=== PATIENT | female | born 1965 | race Caucasian/White ===

== ENCOUNTER 2023-08-02 10:18 | Outpatient (OUT) | payer OTHER, SELFPAY ==
--- NOTE | 2023-08-02 10:57 | MM_ITS ---
Patient Name: JANIE GARCIA MR#: [id number] : 1965 Exam Date: 08/02/2023 Ordering Doctor: DR SANA WAYNE D.O. RADIOLOGY REPORT PROCEDURE: MM TOMOSYNTHESIS SCREENING BI COMPARISON: MG MAMM SCREEN 3D LUIS CAD, 03/17/2021. MG MAMM SCREEN LUIS W CAD, 07/24/2019. MG MAMM SCREEN LUIS W CAD, 01/10/2018. MG MAMM LUIS SCRN W CAD DIG, 07/30/2013. INDICATIONS: screening Calculator Name NCI Breast Cancer Risk Assessment Tool 5 Year Breast Cancer Risk 2.70% Lifetime Breast Cancer Risk 14.90% Personal Breast Cancer No Personal Ovarian Cancer No Treatments Excision. Lobectomy, chemotherapy. Family Cancers Sister with breast cancer at age 66; Brother with colon cancer at age 50; Uncle-paternal with bone cancer at age 70; Aunt-paternal with breast cancer at age 50. LOCATION: [facility] BREAST COMPOSITION: Heterogeneously dense,which may obscure small masses. FINDINGS: DIAGNOSTIC CATEGORY 1--NEGATIVE. RIGHT BREAST: No significant suspicious finding. No significant change has occurred. LEFT BREAST: No significant suspicious finding. No significant change has occurred. RECOMMENDATIONS: ROUTINE MAMMOGRAM AND CLINICAL EVALUATION IN 12 MONTHS. PLEASE NOTE: A NORMAL MAMMOGRAM DOES NOT EXCLUDE THE POSSIBILITY OF BREAST CANCER. A CLINICALLY SUSPICIOUS PALPABLE LUMP SHOULD BE BIOPSIED. Dictated by: Oscar Fall M.D. on 08/03/2023 at 08:35 Approved by: Oscar Fall M.D. on 08/03/2023 at 08:40
== END 2023-08-02 10:19 | disposition home or self-care (01) ==
LOC: MAMMO 10:20
PROVIDERS: PCP Family Medicine; Visit Provider Family Medicine
DX: Z12.31 Encounter for screening mammogram for malignant neoplasm of breast (principal); Z80.3 Family history of malignant neoplasm of breast; Z80.0 Family history of malignant neoplasm of digestive organs; Z80.8 Family history of malignant neoplasm of other organs or systems
CPT/HCPCS: 77063; 77067

== ENCOUNTER 2024-01-18 07:47 | Outpatient (RCR) | payer OTHER, SELFPAY | END 2024-02-01 15:29 | disposition home or self-care (01) | LOC: PT 07:47 | PROVIDERS: PCP Family Medicine; Visit Provider Family Medicine | DX: M54.30 Sciatica, unspecified side (principal); G95.9 Disease of spinal cord, unspecified; M25.552 Pain in left hip | CPT/HCPCS: 97014; 97110; 97140; 97161 ==

== ENCOUNTER 2024-03-24 16:03 | Emergency (ER) | payer OTHER, SELFPAY ==
[2024-03-24] VITALS (33 sets, daily range): BP systolic 111–161; BP diastolic 50–87; PULSE 89–109; TEMP 36.7–37.1; O2SAT 91–97; BMI 27.4
--- OUTSIDE RECORDS SUMMARY | 2024-03-24 16:09 | XMS_ITS | CCD ---
Author Organization [facility] Care Team Providers Care Cardiac Monitor Name Role Phone Ishaan Fernandez Unavailable Oxford Sr., Mike Morales Primary Care Provider Jensen Martinez Unavailable Campbell Quintero Unavailable DO Mike Wayne Primary Care Provider MD Campbell Quintero Attending Provider [phone] TONE, DR HOOD Primary Care Unavailable DIAB ., DAHIANA Admitting Unavailable DIAB ., DAHIANA Attending Unavailable SILVERMAN, ELLIOTT Consulting Unavailable DIAB ., DAHIANA Consulting Unavailable FULLERTON, DR HOOD Admitting Unavailable FULLERTON, DR HOOD Attending Unavailable FULLERTON, DR HOOD Primary Care Unavailable FULLERTON, DR HOOD Consulting Unavailable [facility], DR EUSEBIA Olmos Consulting Unavailable FULLERTON, DR HOOD Admitting Unavailable FULLERTON, DR HOOD Attending Unavailable FULLERTON, DR HOOD Primary Care Unavailable FULLERTON, DR HOOD Consulting Unavailable Oxford Sr., Mike Morales Primary Care Provider PROVIDER, UNKNOWN Attending Unavailable PROVIDER, UNKNOWN Admitting Unavailable MINGO MEDINA Referring Unava ilable DO Mike Wayne Primary Care Provider MD Campbell Quintero Attending Provider [phone] SAPNA REYNA Attending Unavailable SAPNA REYNA Referring Unavailable SAPNA REYNA Attending Unavailable SAPNA REYNA Attending Unavailable DO Mike Wayne Primary Care Provider [phone] MD Campbell Quintero Attending Provider Mike Wayne Primary Care Unavailable Campbell Quintero Admitting Unavailable Campbell Quintero Attending Unavailable House, Mike Primary Care Unavailable Leon, Campbell S Admitting Unavailable Leon, Campbell S Attending Unavailable Leon, Campbell S Admitting Unavailable Leon, Campbell S Attending Unavailable House, Mike Primary Care Unavailable HOUSE SR, MIKE P Primary Care Unavailable NAYELI GARRETT Referring Unavailable HOUSE SR, MIKE P Primary Care Unavailable NAYELI GARRETT Referring Unavailable NAYELI GARRETT Attending Unavailable HOUSE, MIKE P Primary Care Unavailable Dionisio Tong MD Attending Unavailable HOUSE, MIKE P Primary Care Unavailable Dionisio Tong MD Attending Unavailable HOUSE, DO MIKE P Attending Unavailable HOUSE, MIKE P Primary Care Unavailable HOUSE, DO MIKE P Attending Unavailable HOUSE, MIKE P Primary Care Unavailable HOUSE, MIKE P Primary Care Unavailable HOUSE, DO MIKE P Attending Unavailable HOUSE, DO MIKE P Attending Unavailable HOUSE, MIKE P Primary Care Unavailable HOUSE, MIKE P Primary Care Unavailable HOUSE, DO MIKE P Attending Unavailable HOUSE, MIKE P Primary Care Unavailable Dionisio Tong MD Attending Unavailable HOUSE, MIKE P Primary Care Unavailable HOUSE, DO MIKE P Admitting Unavailable HOUSE, DO MIKE P Attending Unavailable HOUSE, MIKE P Primary Care Unavailable Medications Current Medications Medication Drug Class(es) Dates Sig (Normalized) Sig (Original) Ascorbic Acid (7 sources) Vitamin C Vitamin C Active {1 (ascorbic acid 7540 MG / polyethylene glycol 3350 59815 MG / potassium chloride 1200 MG / sodium ascorbate 01536 MG / sodium chloride 3200 MG Powder for Oral Solution) / 1 (polyethylene glycol 3350 953962 MG / potassium chloride 1000 MG / sodium chloride 2000 MG / sodium sulfate 9000 MG Powder for Oral Solution) } Pack [Plenvu] (8 sources) Osmotic Laxative, Vitamin C Start: 01-12-2022 Start: 01-12-2022 Plenvu 140 GM dose 1 pouch at 4pm, dose 2 pouch A & B at 11pm Orally twice a day for 1 days BIN:[id number] PCN: [id number] GROUP:[id number] ID:[id number] Jan, Active citalopram 20 mg oral tablet (17 sources) Serotonin Reuptake Inhibitor Start: 01-17-2019 take 20 mg by mouth once daily Citalopram Active 20 MG PO Daily October 26, 2022 12:00am Comment on above: Take 20 mg by mouth once daily. etodolac 400 mg oral tablet (6 sources) Nonsteroidal Anti-inflammatory Drug Start: 10-13-2023 take 400 mg by mouth twice daily Etodolac Active 400 MG PO Twice daily October 13, 2023 1:00am fexofenadine hydrochloride 180 mg oral tablet (17 sources) Histamine-1 Receptor Antagonist Start: 01-20-2022 take 180 mg by mouth once daily Fexofenadine Active 180 MG PO Daily January 20, 2022 12:00am Comment on above: Take 180 mg by mouth once daily. fluticasone / salmeterol (1 source) Corticosteroid, beta2-Adrenergic Agonist Start: 03-21-2023 End: 06-19-2023 take 1 puff(s) by inhalation twice daily fluticasone-salmet chepe (ADVAIR DISKUS) 100-50 mcg/dose inhaler Inhale 1 Puff as instructed twice daily. 60 Each 3 03/21/2023 06/19/2023 Active Comment on above: Inhale 1 Puff as ins tructed twice daily. lisinopril 20 mg oral tablet (17 sources) Angiotensin Converting Enzyme Inhibitor Start: 01-20-2022 take 20 mg by mouth once daily Lisinopril Active 20 MG PO Daily January 20, 2022 12:00am Comment on above: Take 20 mg by mouth once daily. magnesium aspartate 250 mg / potassium aspartate 250 mg oral capsule (7 sources) Start: 01-20-2022 take 1 capsule by mouth once daily Magnesium, Potassium Aspartate Active 1 CAP PO Daily January 20, 2022 12:00am Multivitamin preparation (7 sources) Start: 01-20-2022 take 1 tablet by mouth once daily Multivitamin Active 1 TAB PO Daily January 20, 2022 12:00am Multivitamins (8 sources) Multivitamins Orally *please review for potential _update for e-prescription and drug interaction check* Active pantoprazole 40 mg delayed release oral tablet (15 sources) Proton Pump Inhibitor Start: 10-26-2022 take 40 mg by mouth once daily Pantoprazole Active 40 MG PO Daily October 26, 2022 12:00am Potassium (8 sources) Potassium Active Vitamin D3 (8 sources) Vitamin D3 Activ e Completed/Discontinued Medications Medication Drug Class(es) Dates Sig (Normalized) Sig (Original) azithromycin 250 mg oral tablet (6 sources) Macrolide Antimicrobial Start: 03-17-2021 take 2 tablets by mouth once daily, then take 1 tablet by mouth once daily azithromycin (ZITHROMAX Z-KEILA) 250 mg tablet Take two (2) tablets by mouth the first day and then one (1) tablet daily for 4 days. 6 tablet 0 03/17/2021 Active Azithromycin 250 MG as directed Orally Active Comment on above: Take two (2) tablets by mouth the first day and then one (1) tablet daily for 4 days. Budesonide / formoterol (1 source) Corticosteroid, beta2-Adrenergic Agonist take 2 puff(s) by inhalation twice daily budesonide-formotero l (SYMBICORT) 160-4.5 mcg/actuation inhaler Inhale 2 Puffs as instructed twice daily. 0 Active Comment on above: Inhale 2 Puffs as in structed twice daily. calcium phosphate dibas/vit D3 (VITAMIN D, WITH CALCIUM, ORAL) (2 sources) calcium phosphat e dibas/vit D3 (VITAMIN D, WITH CALCIUM, ORAL) Take by mouth. 0 Active Comment on above: Take by mouth. MULTI-VITAMIN ORAL (2 sources) take 1 tablet by mouth once daily MULTI-VITAMIN ORAL Take 1 tablet by mouth once daily. 0 Active Comment on above: Take 1 tablet by denis once daily. ondansetron 4 mg oral tablet (15 sources) Serotonin-3 Receptor Antagonist Start: 01-21-20 End: 10-27-19 take 4 mg by mouth every four hours Ondansetron Hcl Discontinued 4 MG PO Q4H January 20, 2022 12:00am October 26, 2022 8:04am take 1 tablet by mouth every twe nty-four hours POTASSIUM/MAGNESIUM (MAGNESIUM-POTASSIUM ORAL) (2 sources) POTASSIUM/MAGNES IUM (MAGNESIUM-POTASSIUM ORAL) Take by mouth. 0 Active Comment on above: Take by mouth. pregabalin (13 sources) Start: End: take 1 capsule by mouth twice daily Pregabalin Discontinued 1 CAP PO Twice daily October 12, 2023 1:00am October 25, 2023 8:19am FreeTextSi capsule Orally Twice a day; Note: Source Status: Taking; Provider: Juan Styles ( ) take 1 capsule by mouth every tw elve hours Lyrica 50 MG 1 capsule Orally Twice a day Active vitamin b12 0.1 mg oral tablet (9 sources) Vitamin B12 take 1 tablet by mouth once daily cyanocobalamin (VITAMIN B-12) 100 mcg tab Take 100 mcg by mouth once daily. 0 Active Vitamin B 12 Act dereje Comment on above: Take 100 mcg by mout h once daily. Problems Active Problems Problem Classification Problem Date Documented Da te Episodic/Chronic Abdominal pain (8 sources) Epigastric pain; Translations: [Epigastric pain] Episodic Cancer of bronchus; lung (4 sources) Non-small cell lung cancer; Translations: [Malignant neoplasm of unspecified part of right bronchus or lung] Onset: 2 Chronic Esophageal disorders (20 sources) Gastroesophageal reflux disease; Translations: [Gastro-esophageal reflux disease without esophagitis] Onset: 2 Resolved: 2 Chronic Essential hypertension (5 sources) Essential (primary) hypertension; Translations: [ESSENTIAL PRIMARY HYPERTENSION] Onset: 3 Chronic Joint disorders and dislocations; trauma-related (8 sources) Internal derangement of right knee; Translations: [Unspecified internal derangement of right knee] Chronic Melanomas of skin (3 sources) Malignant melanoma; Translations: [Malignant melanoma of skin, unspecified] Onset: 2 08-02-2021 Chronic Nonspecific chest pain (1 source) Chest pain, unspecified; Translations: [CHEST PAIN UNSPECIFIED] Onset: 3 Episodic Other gastrointestinal disorders (15 sources) Irritable bowel syndrome; Translations: [Mixed irritable bowel syndrome] 01-20-2022 Chronic Other gastrointestinal disorders (1 source) Mixed irritable bowel syndrome Onset: 2 Resolved: 2 Chronic Other nervous system disorders (14 sources) Chronic pain; Translations: [Other chronic pain] 10-13-2023 Chronic Other nervous system disorders (14 sources) Other chronic pain; Translations: [Other chronic pain] Onset: 4 Chronic Peripheral and visceral atherosclerosis (16 sources) Ischemic colitis; Translations: [Vascular disorder of intestine, unspecified] Onset: 2 Resolved: 2 Chronic Residual codes; unclassified (8 sources) History of surgical procedure on cervical spine; Translations: [Other specified postprocedural states] Episodic Spondylosis; intervertebral disc disorders; other back problems (20 sources) Solitary sacroiliitis; Translations: [Sacroiliitis, not elsewhere classified] Onset: 2 07-13-2012 Chronic Spondylosis; intervertebral disc disorders; other back problems (20 sources) Neck pain; Translations: [Cervicalgia] Onset: 3 Episodic Thyroid disorders (3 sources) Multinodular goiter; Translations: [Nontoxic multinodular goiter] Onset: 8 02-01-2018 Chronic Unclassified (1 source) LOW BACK PAIN, UNSPECIFIED; Translations: [LOW BACK PAIN, UNSPECIFIED] Onset: 3 Past or Other Problems Problem Classification Problem Date Documented Da te Episodic/Chronic Other aftercare (1 source) Other fdc (current) drug therapy; Translations: [OTH DETENTION CURRENT DRUG THERAPY] Onset: 09-07-2022 Episodic Residual codes; unclassified (2 sources) Pain; Translations: [Pain, unspecified] Onset: 07-13-2012 07-13-2012 Episodic Screening and history of mental health and substance abuse codes (1 source) Personal history of nicotine dependence; Translations: [PERSONAL HISTORY OF NICOTINE DEPEND] Onset: 09-07-2022 Episodic Results Test Name Value Interpretation Reference Range Facility CT CHEST WO IVCONon 03-19-[address] CHEST WO IVCON * * *Final Report* * * DATE OF EXAM: Mar 19 2024 9:37AM [facility] 0541 - CT CHEST WO IVCON / PROCEDURE REASON: Malignant neoplasm of unspecified part of unspecified bronchus or lung (HCC) * * * * Physician Interpretation * * * * RESULT: EXAMINATION: CHEST CT WITHOUT CONTRAST CLINICAL HISTORY: Malignant neoplasm of unspecified part of unspecified bronchus or lung (HCC) NSCLC Technique: Spiral CT acquisition of the chest from the thoracic inlet to the upper abdomen without contrast. MQ: CTCWOR_4 CT Dose-Length Product: 201 mGy*cm CT Dose Reduction Employed: Automated exposure control (AEC) Comparison: 03/14/2023 RESULT: Lines, tubes, and devices: None. Lung parenchyma and airways: Trachea and central airways are patent. Right lower lobectomy. Volume loss and architectural distortion and bronchiectasis in the right lung, unchanged. Pleural-parenchymal scarring. Unchanged 1.2 cm nodular opacity left apex (image 34) with comparison to thousand 19. No new suspicious appearing pulmonary nodules. Pleural space: Chronic right pleural thickening with associated calcifications. Lower neck, lymph nodes, and mediastinum: No axillary, supraclavicular, mediastinal or hilar lymphadenopathy by CT size criteria. Heart, pericardium, and thoracic vessels: The heart is normal in size. No pericardial effusion. The thoracic aorta and main pulmonary artery are normal in caliber. Atherosclerotic calcifications of the thoracic aorta and coronary arteries. Bones/Soft Tissues: No aggressive osseous lesions. Upper abdomen: Visualized upper abdomen is grossly unremarkable. Natural Resource Technician (topogram) images: Unremarkable. IMPRESSION: Unchanged appearance of the chest since 03/14/2023. Transcribe Date/Time: Mar 19 2024 2:35P Dictated by: FRANK DENG MD This examination was interpreted and the report reviewed and electronically signed by: FRANK DENG MD on Mar 19 2024 2:44PM EST Thank you for allowing us to participate in the care of your patient. Should there be any questions regarding this interpretation, please call [phone]. If you are unable to reach us at the number above, please feel free to contact [facility] at [phone]. [id number] Normal [facility] Outside [facility] 03-05-2024 Outside Records [id number]#1.0 [facility] 02-26-2024 Outside Records [id number]#1.0 [facility] MR [facility] spine wo [facility] MR lumbar spine wo [facility] [place] [address] MRI Report Signed Patient: Aminta Garcia MR#: [id number] 17 : 1965 Acct:[id number] Age/Sex: 58 / F ADM Date: 02/06/24 Loc: [facility] Room: Type: [facility] Attending Dr: Campbell Quintero MD Copies to: Campbell Quintero MD Ordering Provider: Campbell Quintero MD Date of Service: 02/06/24 MR/MR lumbar spine wo con: M51.36 - Other intervertebral disc degeneration, lumbar r... MRI Lumbar Spine withoutcontrast TECHNIQUE: Multiplanar T1 and T2-weighted imaging of lumbar spine obtained without contrast. HISTORY: Lumbar spine pain with radiation down the legs. Numbness and tingling. COMPARISON: 09/20/2022 The last fully segmented vertebral pair is operationally defined as L5/S1. POST SURGERY CHANGES: None BONE MARROW INFILTRATION: None BONE MARROW EDEMA: None BONY ALIGNMENT: Adequate bony alignment identified. SPINAL CANAL: Similar mild central canal narrowing LUMBAR FRACTURE: None BONY LESIONS: None KIDNEYS: No hydronephrosis is identified. AORTA: No aortic aneurysm is seen. CONUS MEDULLARIS : The distal spinal cord is in adequate position without abnormality. Additional findings CONJOINED NERVE ROOT: None Lower thoracic level: Unremarkable L1-2 :Moderate spondylosis. Small left parasagittal disc protrusion. Patent central canal. Mild posterior element hypertrophy. Mild bilateral neural foraminal narrowing L2-3: Moderate spondylosis. Diffuse disc bulge. Mild central canal stenosis. Posterior element hypertrophy. Facet diastases. Moderate moderate bilateral neural foraminal narrowing L3-4: Moderate spondylosis. Diffuse disc bulge. Mild central canal stenosis. Posterior element hypertrophy. Moderate bilateral neural foraminal narrowing L4-5: Moderate spondylosis. Mild anterolisthesis. Diffuse disc bulge. Mild central canal stenosis. Posterior element hypertrophy. Moderate bilateral neural foraminal narrowing L5-S1: Mild spondylosis. Moderate diffuse disc bulge and midline disc protrusion. Concavity of anterior thecal sac. Patent central canal. Posterior element hypertrophy. Mild left and marked right neural foraminal narrowing MR/MR lumbar spine wo con IMPRESSION: Similar extensive multilevel degenerative changes. Similar levels of central canal stenosis and neural foraminal narrowing. No new worrisome findings. Pre-MRI plain film assessment: None Impression dictated by: Mariusz Cloud M.D.02/06/2024 4:21 PM Dictation Location: [place] [address] Transcribed By: [facility] 02/06/24 1621 Dictated By: Mariusz Cloud DO 02/06/24 1616 Signed By: 02/06/24 1621 [facility] Provider Orderson 01-22-2024 Provider Orders [id number]#1.0 [facility] 01-11-2024 Outside Records [id number]#1. [facility] XR lumbar spine AP/LAT/FLX/E XTon 12-27-2023 XR lumbar spine AP/LAT/FLX/EXT [facility] [place] [address] [place] [address] XRay Report Signed Patient: Aminta Garcia MR#: [id number] 17 : 1965 Acct:[id number] Age/Sex: 58 / F ADM Date: 12/27/23 Loc: XD Room: Type: [facility] Attending Dr: Campbell Quintero MD Copies to: Campbell Quintero MD Ordering Provider: Campbell Quintero MD Date of Service: 12/27/23 XR/XR lumbar spine AP/LAT/FLX/EXT: M46.1 - Sacroiliitis, not elsewhere classified LUMBAR SPINE WITH FLEXION AND EXTENSION VIEWS - 4 views COMPARISON: CT 09/05/2022 CLINICAL DATA: Low back pain radiating to the lower extremities with his weakness, numbness and tingling, greater on the left. AP as well as lateral views in neutral, flexion and extension were obtained. There is osteopenia. There is reverse S-shaped thoracolumbar scoliotic curvature. No acute compression fractures are identified. There is no significant displacement or instability. There is mild disc space narrowing at L4-5. There is endplate spurring. There is lower lumbar facet hypertrophy. The SI joints are intact and show mild sclerosis. There is some atherosclerotic disease at the aorta. XR/XR lumbar spine AP/LAT/FLX/EXT IMPRESSION: OSTEOPENIA, SCOLIOSIS AND DEGENERATIVE CHANGES. Impression dictated by: Maria D Thrasher M.D.12/27/2023 6:38 PM Dictation Location: [place] [address] Transcribed By: [facility] 12/27/231837 Dictated By: Maria D Thrasher MD 05/22/24 1835 Signed By: 12/27/23 1838 Normal [facility] Miscellaneouson 12-11-2023 Miscellaneous [id number]#1 .[facility]-13-2023 Outside Records [id number]#1.0 0[facility] Outside [facility] 11-02-2023 Outside Records [id number]#1.0 0[facility] 10-25-2023 Outside Records [id number]#1. [facility] 10-17-2023 Miscellaneous [id number]#1 .[facility] 10-16-2023 Outside Records [id number]#1.00 [facility] Miscellaneouson 10-02-2023 Miscellaneous [id number]#1.0 0[facility] Miscellaneouson 08-17-2023 Miscellaneous [id number]#1 .00[facility] Miscellaneouson 07-27-2023 Miscellaneous [id number]#1 .[facility] 07-19-2023 Outside Records [id number]#1.00 [facility] Office/Clinic Noteon 023 Miscellaneous [id number]#1. 00[facility] Office/Clinic Note [id number]#1. 00[facility] Miscellaneouson 06-22-2023 Miscellaneous [id number]#1.00 [facility] 06-05-2023 Miscellaneous [id number]#1.0 0[facility] 05-29-2023 Outside Records [id number]#1 .00[facility] CNOVSPon 03-21-2023 CNOVSP Visit (SP) Office ([facility]) RADHAAMINTA CALLEJAS ([id number]) 1965 F Date Time Provider Department 03/21/23 1:15 PM NAYELI GARRETT During your visit today, we recorded the following information about you: Temperature Pulse Respiration Blood pressure 96.9 degrees 73/minute 18/minute 140/70 Weight Height 82.5 kg 1.689 m Nayeli Garrett MD 03/22/2023 7:47 AM Signed PATIENT NAME: Aminta Garcia DATE: 03/21/2023 PRIMARY CARE PHYSICIAN: Dr. Wayne OTHER PHYSICIAN: Dr. Duarte ([facility]) Portions of this encounter note have been copied from my note from 03/15/2022 and has been updated where appropriate, and reflect my current medical decision making from today. CC: This is a 57 year old female with a history of lung cancer and melanoma, seen for scheduled follow-up. INTERIM HISTORY: Since the patient's last visit here she developed increasing cough and shortness of breath. She was given an inhaler (Symbicort) per PCP and her pulmonary symptoms improved. However, the inhaler cost more than $400, and she states today that she cannot afford it. Otherwise she has had no significant medical changes. Her pulmonary symptoms overall are quite mild. She has had no unusual pain or other systemic symptoms. She continues to follow-up with her bacteriology technician on a yearly basis, and has had no significant skin changes. MEDICATIONS: calcium phosphate dibas/vit D3 (VITAMIN D, WITH CALCIUM, ORAL) Take by mouth. azithromycin (ZITHROMAX Z-KEILA) 250 mg tablet Take two (2) tablets by mouth the first day and then one (1) tablet daily for 4 days. citalopram (CELEXA) 20 mg tablet Take 20 mg by mouth once daily. cyanocobalamin (VITAMIN B-12) 100 mcg tab Take 100 mcg by mouth once daily. fexofenadine (NERIS) 180 mg tablet Take 180 mg by mouth once daily. lisinopril (ZESTRIL, PRINIVIL) 20 mg tablet Take 20 mg by mouth once daily. POTASSIUM/MAGNESIUM (MAGNESIUM-POTASSIUM ORAL) Take by mouth. MULTI-VITAMIN ORAL Take 1 tablet by mouth once daily. ALLERGIES: Patient has no known allergies. PAST MEDICAL HISTORY: PAST MEDICAL HISTORY Diagnosis Date Non-small cell lung cancer (HCC) PAST SURGICAL HISTORY: PAST SURGICAL HISTORY Procedure Laterality Date HYSTERECTOMY HX KNEE SURGERY HX Right REMOVAL OF LUNG,LOBECTOMY Right lower REVISE MEDIAN N/CARPAL TUNNEL SURG Left TONSILLECTOMY HX REVIEW OF SYSTEMS: GENERAL: No weight loss, malaise or fevers. Positive fatigue HEENT: Negative for frequent or significant headaches, No changes in hearing or vision, no nose bleeds or other nasal problems. No palpable thyromegaly. RESPIRATORY: Negative for cough, wheezing Positive increased shortness of breath with exertion CARDIOVASCULAR: Negative for chest pain, leg swelling or palpitations. GI: Negative for abdominal discomfort, blood in stools or black stools or change in bowel habits : No history of dysuria, frequency or incontinence MUSCULOSKELETAL: pain in right rib under breast SKIN: Negative for lesions, rash, and itching. HEMATOLOGY/LYMPHOLOGY: Negative for prolonged bleeding, bruising easily or swollen nodes. NEURO: No history of headaches, syncope, paralysis, seizures or tremors PHYSICAL EXAM: Vitals: BP 140/70 Pulse 73 Temp 36.1 ?C (96.9 ?F) (Temporal) Resp 18 Ht 168.9 cm (5' 6.5 ) Wt 82.5 kg (181 lb 12.8 oz) SpO2 99% BMI 28.91 kg/m? General appearance: well appearing, alert, in no acute distress, well-hydrated, well nourished Skin: skin color, texture, turgor normal, no suspicious rashes or lesions Head: normal Eyes: Anicteric sclera. Pupils are equally round and reactive to light. Extraocular movements are intact. Ears: negative findings: external ears normal to inspection and palpation Oropharynx: negative Neck: Supple, no adenopathy; thyroid symmetric, normal size Lymph Nodes: No Submandibular, cervical, supraclavicular, axillary, or inguinal lymphadenopathy present Lungs: clear to auscultation, no wheezing or rhonchi Heart: Negative. RRR without murmur, gallop, or rubs. No ectopy. Abdomen: Normal abdominal exam, Abdomen soft, non-tender. Bowel sounds normal. No masses, organomegaly Rectal: Not done Extremities: Extremities normal. No deformities, edema, or skin discoloration. Good capillary refill. Musculoskeletal: No joint swelling, deformity, or tenderness. Peripheral pulses: Normal RADIOLOGY/OTHER STUDIES: 03/14/2023 CT chest IMPRESSION: 1. Overall stable CT of the chest. Stable postsurgical changes in keeping with right lower lobectomy. 2. Stable right apical and right upper lobe consolidative opacity. 3. Stable nodular opacity in the left upper lobe. No new or enlarging nodules are visualized. 4. No evidence of intrathoracic adenopathy. 03/09/2022 CT chest IMPRESSION: 1. No significant change since 03/12/2021. 2. Stable posto (more content not included)... Normal [facility] CBC AUTO DIFFon 12-05-2022 BASO # 0.0 103/ul Normal 0.0-0.1 [facility] Comment on above: Performed By: #### C BC #### [facility] [address] [address] [address] Tony Vuong Basophils/100 WBC (Bld) 0.6 % Normal 0.2-2.0 [facility] Comment on above: Performed By: #### C BC #### [facility] [address] [place] [address] Dr. Tony Vuong EO # 0.2 103/ul Normal 0.0-0.7 [facility] Comment on above: Performed By: #### C BC #### [facility] [address] [place] [address] Dr. Tony Vuong Eosinophils/100 WBC (Bld) 3.6 % Normal 0.9-7.0 [facility] Comment on above: Performed By: #### C BC #### [facility] [address] [place] [address] Dr. Tony Vuong Erythrocyte distribution width (RBC) [Ratio] 12.8 % Normal 11.0-15.0 [facility] Comment on above: Performed By: #### C BC #### [facility] [address] [place] [address] Dr. Tony Vuong Hematocrit (Bld) [Volume fraction] 42.0 % Normal 36.0-48.0 [facility] Comment on above: Performed By: #### C BC #### [facility] [address] [place] [address] Dr. Tony Vuong Hemoglobin (Bld) [Mass/Vol] 14.0 g/dL Normal 12.0-16.0 [facility] Comment on above: Performed By: #### C BC #### [facility] [address] [place] [address] Dr. Tony Vuong IG # 0.01 10e3/ul Normal 0.00-0.03 [facility] Comment on above: Performed By: #### C BC #### [facility] [address] [place] [address] Dr. Tony Vuong IG % 0.2 % Normal 0.0-0.5 [facility] Comment on above: Performed By: #### C BC #### [facility] [address] [place] [address] Dr. Tony Vuong LYMPH # 2.1 103/ul Normal 1.2-3.8 [facility] Comment on above: Performed By: #### C BC #### [facility] [address] [place] [address] Dr. Tony uVong Lymphocytes/100 WBC (Bld) 32.8 % Normal 20.5-60.0 [facility] Comment on above: Performed By: #### C BC #### [facility] [address] [place] [address] Dr. Tony Vuong MANUAL DIFF REQ NO Normal [facility] Comment on above: Performed By: #### C BC #### [facility] [address] [place] [address] Dr. Tony Vuong MCH (RBC) [Entitic mass] 28.2 pg Normal 26.7-34.0 [facility] Comment on above: Performed By: #### C BC #### [facility] [address] [place] [address] Dr. Tony Vuong MCHC (RBC) [Mass/Vol] 33.3 g/dL Normal 29.9-35.2 [facility] Comment on above: Performed By: #### C BC #### [facility] [address] [place] [address] Dr. Tony Vuong MCV (RBC) [Entitic vol] 84.5 fL Normal 81.0-99.0 [facility] Comment on above: Performed By: #### C BC #### [facility] [address] [place] [address] Dr. Tony Vuong MONO # 0.5 103/ul Normal 0.3-0.8 [facility] Comment on above: Performed By: #### C BC #### [facility] [address] [place] [address] Dr. Tony Vuong Monocytes/100 WBC (Bld) 8.1 % Normal 1.7-12.0 [facility] Comment on above: Performed By: #### C BC #### [facility] [address] [place] [address] Dr. Tony Vuong NEUT # 3.5 103/ul Normal 1.4-6.5 [facility] Comment on above: Performed By: #### C BC #### [facility] [address] [place] [address] Dr. Tony Vuong Neutrophils/100 WBC (Bld) 54.7 % Normal 43.0-75.0 [facility] Comment on above: Performed By: #### C BC #### [facility] [address] [place] [address] Dr. Tony Vuong Platelet mean volume (Bld) [Entitic vol] 10.0 fL Normal 9.5-13.5 [facility] Comment on above: Performed By: #### C BC #### [facility] [address] [place] [address] Dr. Tony Vuong PLT 280 103/ul Normal 150-450 [facility] Comment on above: Performed By: #### C BC #### [facility] [address] [place] [address] Dr. Tony Vuong RBC 4.97 106/ul Normal 4.20-5.40 [facility] Comment on above: Performed By: #### C BC #### [facility] [address] [place] [address] Dr. Tony Vuong WBC 6.4 103/ul Normal 4.0-11.0 [facility] Comment on above: Performed By: #### C BC #### [facility] [address] [place] [address] Dr. Tony Vuong PROF 14(COMP METB)on 023 Albumin [Mass/Vol] 4.1 g/dL Normal 3.4-5.0 [facility] Comment on above: Performed By: #### T 4, TSH, CMP #### [facility] [address] [place] [address] Dr. Tony Vuong Albumin/Globulin [Mass ratio] 1.1 {ratio} Normal [facility] Comment on above: Performed By: #### T 4, TSH, CMP #### [facility] [address] [place] [address] Dr. Tony Vuong ALP [Catalytic activity/Vol] 111 U/L Normal 46-116 [facility] Comment on above: Performed By: #### T 4, TSH, CMP #### [facility] [address] [place], [place] [id number] Dr. Tony Vuong ALT [Catalytic activity/Vol] 38 U/L Normal 14-59 [facility] Comment on above: Performed By: #### T 4, TSH, CMP #### [facility] [address] [place] [address] Dr. Tony Vuong Anion gap [Moles/Vol] 10.6 mmol/L Normal [facility] Comment on above: Performed By: #### T 4, TSH, CMP #### [facility] [address] [place] [address] Dr. Tony Vuong AST [Catalytic activity/Vol] 27 U/L Normal 15-37 [facility] Comment on above: Performed By: #### T 4, TSH, CMP #### [facility] [address] [place] [address] Dr. Tony Vuong Bilirubin [Mass/Vol] 0.5 mg/dL Normal 0.2-1.0 [facility] Comment on above: Performed By: #### T 4, TSH, CMP #### [facility] [address] [place] [address] Dr. Tony Vuong Calcium [Mass/Vol] 9.3 mg/dL Normal 8.5-10.1 [facility] Comment on above: Performed By: #### T 4, TSH, CMP #### [facility] [address] [place] [address] Dr. Tony Vuong Chloride [Moles/Vol] 104 mmol/L Normal 98-107 [facility] Comment on above: Performed By: #### T 4, TSH, CMP #### [facility] [address] [place] [address] Dr. Tony Vuong CO2 [Moles/Vol] 26.9 mmol/L Normal 21.0-32.0 [facility] Comment on above: Performed By: #### T 4, TSH, CMP #### [facility] [address] [place] [address] Dr. Tony Vuong Creatinine [Mass/Vol] 0.83 mg/dL Normal 0.55-1.02 [facility] Comment on above: Performed By: #### T 4, TSH, CMP #### [facility] [address] [address] [address] Tony Vuong EGFR-AF [place] >60 Normal >=60 [facility] Comment on above: Performed By: #### T 4, TSH, CMP #### [facility] [address] [address] [address] Tony Vuong EGFR-NON AF [place] >60 Normal >=60 [facility] Comment on above: Performed By: #### T 4, TSH, CMP #### [facility] [address] [address] [address] Tony Vuong Globulin (S) [Mass/Vol] 3.8 g/dL Normal [facility] Comment on above: Performed By: #### T 4, TSH, CMP #### [facility] [address] [place] [address] Dr. Tony Vuong Glucose [Mass/Vol] 105 mg/dL Normal 74-106 [facility] Comment on above: Performed By: #### T 4, TSH, CMP #### [facility] [address] [place] [address] Dr. Tony Vuong Potassium [Moles/Vol] 4.5 mmol/L Normal 3.5-5.1 [facility] Comment on above: Performed By: #### T 4, TSH, CMP #### [facility] [address] [place] [address] Dr. Tony Vuong Protein [Mass/Vol] 7.9 g/dL Normal 6.4-8.2 [facility] Comment on above: Performed By: #### T 4, TSH, CMP #### [facility] [address] [address] [address] Tony Vuong Sodium [Moles/Vol] 137 mmol/L Normal 136-145 [facility] Comment on above: Performed By: #### T 4, TSH, CMP #### [facility] [address] [place] [address] Dr. Tony Vuong Urea nitrogen [Mass/Vol] 19.0 mg/dL Critically high 7.0-18.0 [facility] Comment on above: Performed By: #### T 4, TSH, CMP #### [facility] [address] [address] [address] Tony Vuong Urea nitrogen/Creatinine [Mass ratio] 22.9 mg/mg Normal [facility] Comment on above: Performed By: #### T 4, TSH, CMP #### [facility] [address] [address] [address] Tony Vuong T4on 12-05-2022 T4 [Mass/Vol] 8.30 ug/dL Normal 4.80-13.90 [facility] Comment on above: Performed By: #### T 4, TSH, CMP #### [facility] [address] [address] [address] Tony Vuong TSHon 12-05-2022 TSH 1.242 uIU/mL Normal 0.358-3.740 [facility] Comment on above: Performed By: #### T 4, TSH, CMP #### [facility] [address] [address] [address] Tony Vuong MRI LSPINE WO CONon 09-20-19 23 MRI LSPINE WO CON EXAMINATION: MRI LSPINE WO CON HISTORY: Lumbar spondylosis with myelopathy ; acute lumbar pain radiating into legs. COMPARISON: No relevant comparison available. TECHNIQUE: A variety of imaging planes and parameters were utilized for visualization of suspected pathology. FINDINGS: For the purposes of numbering, sagittal T2 image # 7 extends from the T11 vertebral body superiorly to the S2 level inferiorly. PARASPINAL AREA: Normal with no visible mass. BONES: No fracture, pars defect, or osseous lesion. CORD/CAUDA EQUINA: Normal caliber, contour, and signal intensity. DISC LEVELS: 12-L1: No significant disc/facet abnormality, spinal stenosis, or foraminal stenosis. L1-L2: Early degenerative disc disease is present without focal protrusion or neural impingement. L2-L3: Marked narrowing of the lateral aspect of right neural foramen secondary to lateral disc bulging and mild facet arthropathy. L3-L4: Early degenerative disc disease is present without focal protrusion or neural impingement. L4-L5: Moderate to marked foramen narrowing bilaterally. No significant central canal narrowing. Mild diffuse disc bulging without disc height reduction. Mild degenerative facet arthropathy, right greater than left. L5-S1: Early degenerative disc disease is present without focal protrusion or neural impingement. IMPRESSION: 1. Marked narrowing of lateral aspect of right neural foramen at L2-3 secondary to lateral disc bulging and mild facet arthropathy. 2. Moderate-marked foramen narrowing bilaterally L4-5 secondary to degenerative disc disease and facet arthropathy. Electronically authenticated by: EUSEBIA REYES Date: 2022-09-20 10:[address] [facility] CT LSPINE WO CONon [address] [facility] WO CON CT LSPINE WO CON INDICATION: 57 years old; Female.Backache Symptom/Location/Durat ion: Right lower back pain and right leg pain for one week. Worsening pain. TECHNIQUE: CT of the lumbar spine.Contrast None. Sagittal and coronal images as well as axial reconstructions through the disc spaces were produced. Ionizing radiation dose reduced via iterative reconstruction/FBP blend and body size kV/mA adjustment. COMPARISON: Images of the lumbar spine from a CT of the abdomen and pelvis dated 11/22/2021. FINDINGS: POSTOPERATIVE CHANGES: None ALIGNMENT AND LORDOSIS: There is loss of normal lumbar lordosis in the upper lumbar/lower thoracic spine. VERTEBRAE: There is loss of height of the superior endplate of L1 associated with Schmorl's node formation. This appearance is unchanged as compared to the findings in the prior abdomen CT. This represents a chronic finding. No acute fracture is seen. No spondylolysis or spondylolisthesis is seen. No lytic or blastic lesions. DISC LEVELS: L1-L2: There is disc space narrowing, disc bulging, and endplate osteophyte formation with a focal disc osteophyte complex projecting just to the left of the midline. Central canal is patent there is minimal flattening of the anterior aspect of the thecal sac. Neural foramina are patent. L2-L3: There is disc bulging and endplate osteophyte formation with a right, lateral, intraforaminal protrusion type disc herniation. There is compression of the exiting right L2 nerve root beyond the neural foramen. Central canal is patent. L3-L4: No focal disc herniation. Minimal disc bulging and endplate osteophyte formation. Facet degeneration. Central canal, neural foramina, and lateral recesses are patent. L4-L5: Disc bulging and endplate osteophyte formation with a left, lateral, intravenous extraforaminal protrusion type disc herniation, image 60/series 4. Facet degeneration is also present on the left with vacuum change. There is compression of the exiting left L4 nerve root secondary to the disc material within the foramen. L5-S1: Disc bulging and endplate osteophyte formation. Facet degeneration worse on the right. Central canal, neural foramina, and lateral recesses are patent. LOWER THORACIC DISCS: At T11-T12, there is a central disc osteophyte complex. This causes mild to moderate central canal stenosis. The distal conus is not visible in this study. Deformity of the conus cannot be excluded. OTHER: Vascular calcification. IMPRESSION: 1. Chronic compression deformity superior endplate of L1 which is unchanged as compared to the findings of the prior abdomen and pelvis CT dated 11/22/2021. 2. Multilevel degenerative changes with disc herniations including right, lateral, intraforaminal herniation at the L2-S3 level, left, lateral, intra-axial foraminal disc herniation at L4-L5, and disc osteophyte complexes at L1-L2 and T11-T12. At T11-T12, the presence of conus deformity cannot be excluded since the distal cord is not visible in this study. Follow-up with MRI is recommended. Electronically authenticated by: ELLIOTT SILVERMAN Date: 2022-09-05 23:46 Normal [facility] Vital Signs Date Time Vital Sign Value Performing Clinician Facility 03-04-2024 14:43-0400 Diastolic blood pressure 70 mm[Hg] DO [employer] Work Phone: [facility] 03-04-2024 14:43-0400 Heart rate 73 /min DO [employer] Work Phone: [facility] 03-04-2024 14:43-0400 SaO2% (BldA) [Mass fraction] 98 % DO [employer] Work Phone: [facility] 03-04-2024 14:43-0400 Systolic blood pressure 120 mm[Hg] DO [employer] Work Phone: [facility] 01-10-2024 15:32-0400 Diastolic blood pressure 70 mm[Hg] DO [employer] Work Phone: [facility] 01-10-2024 15:32-0400 Heart rate 60 /min DO Mike House Work Phone: [facility] 01-10-2024 15:32-0400 SaO2% (BldA) [Mass fraction] 98 % DO Mike House Work Phone: [facility] 01-10-2024 15:32-0400 Systolic blood pressure 118 mm[Hg] DO Mike House Work Phone: [facility] 11-01-2023 15:25-0400 Diastolic blood pressure 70 mm[Hg] DO Mike House Work Phone: [facility] 11-01-2023 15:25-0400 Heart rate 66 /min DO Mike House Work Phone: [facility] 11-01-2023 15:25-0400 SaO2% (BldA) [Mass fraction] 98 % DO Mike House Work Phone: [facility] 11-01-2023 15:25-0400 Systolic blood pressure 140 mm[Hg] DO Mike House Work Phone: [facility] 10-25-2023 09:37-0400 Diastolic blood pressure 70 mm[Hg] DO Mike House Work Phone: [facility] 10-25-2023 09:37-0400 Heart rate 65 /min DO Mike House Work Phone: [facility] 10-25-2023 09:37-0400 Respiratory rate 16 /min DO Mike House Work Phone: [facility] 10-25-2023 09:37-0400 SaO2% (BldA) [Mass fraction] 97 % DO Mike House Work Phone: [facility] 10-25-2023 09:37-0400 Systolic blood pressure 113 mm[Hg] DO Mike House Work Phone: [facility] 10-25-2023 09:03-0400 Inhaled oxygen flow rate 3 L/min DO Mike Wayne Work Phone: [facility] 10-25-2023 08:16-0400 Body height 167.64 cm DO Mike Wayne Work Phone: [facility] 10-25-2023 08:16-0400 Body weight 83 kg DO Mike Wayne Work Phone: [facility] 10-13-2023 09:45-0500 Heart rate 74 /min DO Mike Wayne Work Phone: [facility] 10-13-2023 09:45-0500 SaO2% (BldA) [Mass fraction] 97 % DO Mike Wayne Work Phone: [facility] 03-21-2023 12:56-0400 Body height 168.9 cm Nayeli Garrett MD Work Phone: [facility] 03-21-2023 12:56-0400 Body temperature 96.91 [degF] Nayeli Garrett MD Work Phone: [facility] 03-21-2023 12:56-0400 Body weight 82.46 kg Nayeli Garrett MD Work Phone: [facility] 03-21-2023 12:56-0400 Diastolic blood pressure 70 mm[Hg] Nayeli Garrett MD Work Phone: [facility] 03-21-2023 12:56-0400 Heart rate 73 /min Nayeli Garrett MD Work Phone: [facility] 03-21-2023 12:56-0400 Respiratory rate 18 /min Nayeli Garrett MD Work Phone: [facility] 03-21-2023 12:56-0400 SaO2% (BldA) [Mass fraction] 99 % Nayeli Garrett MD Work Phone: [facility] 03-21-2023 12:56-0400 Systolic blood pressure 140 mm[Hg] Nayeli Garrett MD Work Phone: [phone] [place] [address] 01-05-2023 11:20-0400 Body height 167.64 cm Jensen Martinez Other [employer] Other 01-05-2023 11:20-0400 Body mass index (BMI) [Ratio] 29.21 kg/m2 Jensen Martinez Other [employer] Other 01-05-2023 11:20-0400 Body weight 82.1 kg Jensen Juan Other [employer] Other 11-10-2022 11:20-0400 Body height 167.64 cm Jensen Juan Other [employer] Other 11-10-2022 11:20-0400 Body mass index (BMI) [Ratio] 30.02 kg/m2 Jensen Juan Other [employer] Other 11-10-2022 11:20-0400 Body weight 84.37 kg Jensen Martinez Other [employer] Other 11-10-2022 11:20-0400 Diastolic blood pressure 66 mm[Hg] Jensen Juan Other [employer] Other 11-10-2022 11:20-0400 Systolic blood pressure 122 mm[Hg] Jensen Martinez Other [employer] Other 11-08-2022 11:15-0400 Body height 167.64 cm Campbell Quintero Other [employer] Other 11-08-2022 11:15-0400 Diastolic blood pressure 70 mm[Hg] Campbell Quintero Other [employer] Other 11-08-2022 11:15-0400 SaO2% (BldA) [Mass fraction] 98 % Campbell Quintero Other [facility] [email or web address] Other 11-08-2022 11:15-0400 Systolic blood pressure 110 mm[Hg] Campbell Quintero Other [employer] Other 10-26-2022 09:15-0400 Diastolic blood pressure 64 mm[Hg] DO Mike Nova [employer] Work Phone: [facility] 10-26-2022 09:15-0400 Heart rate 66 /min DO [employer] Work Phone: [facility] 10-26-2022 09:15-0400 Respiratory rate 20 /min DO [employer] Work Phone: [facility] 10-26-2022 09:15-0400 SaO2% (BldA) [Mass fraction] 98 % DO Mike Nova [employer] Work Phone: [facility] 10-26-2022 09:15-0400 Systolic blood pressure 127 mm[Hg] DO Mike House Work Phone: [facility] 10-26-2022 08:09-0400 Body height 167.64 cm DO Mike House Work Phone: [facility] 10-26-2022 08:09-0400 Body temperature 97.6 [degF] DO [employer] Work Phone: [facility] 10-26-2022 08:09-0400 Body weight 83.91 kg DO Mike House Work Phone: [facility] 10-12-2022 15:00-0500 Body height 167.64 cm Campbell Quintero Other [email or web address] Other 10-12-2022 15:00-0500 SaO2% (BldA) [Mass fraction] 96 % Campbell Quintero Other [facility] [email or web address] Other 09-29-2022 08:20-0500 Body height 167.64 cm Jensen Martinez Other [employer] Other 09-29-2022 08:20-0500 Body mass index (BMI) [Ratio] 30.18 kg/m2 Jensen Martinez Other [employer] Other 09-29-2022 08:20-0500 Body weight 84.82 kg Jensen Martinez Other [employer] Other 09-29-2022 08:20-0500 Diastolic blood pressure 76 mm[Hg] Jensen Juan Other [employer] Other 09-29-2022 08:20-0500 Systolic blood pressure 130 mm[Hg] Jensen Juan Other [employer] Other 01-12-2022 14:45-0400 Body height 167.64 cm Ishaan Fernandez Other [employer] Other 01-12-2022 14:45-0400 Body mass index (BMI) [Ratio] 29.7 kg/m2 Ishaan Fernandez Other [employer] Other 01-12-2022 14:45-0400 Body weight 83.46 kg Ishaan Fernandez Other [employer] Other 01-12-2022 14:45-0400 Diastolic blood pressure 73 mm[Hg] Ishaan Fernandez Other [employer] Other 01-12-2022 14:45-0400 Systolic blood pressure 133 mm[Hg] Ishaan Fernandez Other [employer] Other Encounters Encounter Date Encounter Type Care Provider Facility Start: 03-20-2024 End: 03-20-2024 ambulatory DO MIKE P HOUSE Facility:[facility] Start: 03-19-2024 End: 03-19-2024 ambulatory MIKE P HOUSE SR Facility:[facility] Start: 03-04-2024 End: 03-04-2024 ambulatory DO Mike House Work Phone: [facility] Work Phone: Start: 03-04-2024 End: 03-04-2024 Patient encounter procedure DO Mike House Work Phone: [facility] Work Phone: Start: 02-06-2024 End: 02-06-2024 Patient encounter procedure DO Mike House Work Phone: [facility] [address] Work Phone: Start: 02-06-2024 End: 02-06-2024 ambulatory DO Mike House Work Phone: [facility] Work Phone: Start: 01-10-2024 End: 01-10-2024 ambulatory DO Mike House Work Phone: [facility] Work Phone: Start: 01-10-2024 End: 01-10-2024 Patient encounter procedure DO Mike House Work Phone: [facility] Work Phone: Start: 01-04-2024 End: 01-04-2024 ambulatory DO MIKE P HOUSE [facility] Start: 12-27-2023 End: 12-27-2023 Patient encounter procedure DO Mike House Work Phone: [facility] [address] [place] Work Phone: Start: 12-27-2023 End: 12-27-2023 ambulatory DO Mike House Work Phone: [facility] Work Phone: Start: 12-27-2023 End: 12-27-2023 ambulatory DO MIKE P HOUSE Facility:[facility] Start: 11-30-2023 End: 11-30-2023 ambulatory MIKE P HOUSE Facility:[facility] Start: 11-13-2023 End: 11-13-2023 ambulatory DO MIKE P HOUSE Facility:[facility] Start: 11-09-2023 End: 11-09-2023 ambulatory SAPNA A BROWN Not Available Start: 11-02-2023 End: 11-02-2023 ambulatory SAPNA A BROWN Not Available Start: 11-01-2023 End: 11-01-2023 ambulatory DO Mike House Work Phone: [facility] Work Phone: Start: 11-01-2023 End: 11-01-2023 Patient encounter procedure DO Mike House Work Phone: [facility] Work Phone: Start: 10-25-2023 Non-patient / Non-visit DO Any rles House Work Phone: [facility] Work Phone: Start: 10-25-2023 End: 10-25-2023 Admission to same day surgery center DO Mike House Work Phone: [facility] Work Phone: Start: 10-25-2023 End: 10-25-2023 ambulatory DO Mike House Work Phone: [facility] Work Phone: Start: 10-13-2023 End: 10-13-2023 Patient encounter procedure DO Mike House Work Phone: [facility] [place] Work Phone: Start: 10-10-2023 End: 10-10-2023 ambulatory SAPNA A BROWN Not Available Start: 09-25-2023 End: 09-25-2023 ambulatory DO MIKE P HOUSE Facility:[facility] Start: 07-11-2023 End: 07-11-2023 ambulatory MIKE WAYNE Facility:[facility] Start: 07-10-2023 End: 07-10-2023 ambulatory MIKE WAYNE Facility:[facility] Start: 06-08-2023 End: 06-08-2023 ambulatory MIKE WAYNE Facility:[facility] Start: 05-02-2023 End: 05-02-2023 ambulatory Dionisio Tong MD Facility:[facility] Start: 04-18-2023 ambulatory UNKNOWN PROVIDER Facili ty:[facility] Start: 03-21-2023 End: 03-21-2023 ambulatory Nayeli Garrett MD Work Phone: Hematology/Oncology Comment on above: Non-small cell cance r of right lung (HCC) (Primary Dx); Malignant melanoma of torso excluding breast (HCC); Multiple thyroid nodules Start: 03-21-2023 End: 03-21-2023 Patient encounter procedure Nayeli Garrett MD Work Phone: [facility] Start: 01-05-2023 End: 01-05-2023 ambulatory Jensen Martinez Other [employer] Other Start: 01-05-2023 Office outpatient vi sit 15 minutes Jensen Martinez [facility] Start: 12-05-2022 End: 12-06-[address] MIKE WAYNE Facility: Start: 11-10-2022 End: 11-10-2022 ambulatory Jensen Martinez Other [employer] Other Start: 11-10-2022 Office outpatient vi sit 15 minutes Jensen Martinez [facility] Start: 11-08-2022 End: 11-08-2022 ambulatory Campbell Quintero Other [employer] Other Start: 11-08-2022 Office outpatient vi sit 15 minutes Campbell Quintero [facility] Start: 10-26-2022 (PROC) PROCEDURE Campbell Soto [facility] Start: 10-26-2022 End: 10-26-2022 Admission to same day surgery center DO Mike Wayne Work Phone: [facility] Work Phone: Start: 10-26-2022 End: 10-26-2022 ambulatory DO Mike Wayne Work Phone: [facility] Work Phone: Start: 10-13-2022 End: 10-13-2022 ambulatory Campbell Quintero Other [employer] Other Start: 10-13-2022 Telephone encounter Campbell Quintero [facility] Start: 10-12-2022 End: 10-12-2022 ambulatory Campbell Quintero Other [employer] Other Start: 10-12-2022 Office consultation new/estab patient 60 min Campbell Quintero [facility] Start: 09-29-2022 End: 09-29-2022 ambulatory Jensen Martinez Other [employer] Other Start: 09-29-2022 Office outpatient ne w 30 minutes Jensen Martinez [facility] Start: 09-20-2022 End: 09-21-[address] MIKE WAYNE Facility:[facility] Start: 09-06-2022 End: 09-06-[address] MIKE WAYNE Facility:[facility] Start: 03-02-2022 Telephone encounter Nayeli mcdonald MD Work Phone: Hematology/Oncology Comment on above: Lab Orders Start: 01-12-2022 End: 01-12-2022 ambulatory Ishaan Fernandez Other [employer] Other Start: 01-12-2022 Office outpatient ne w 45 minutes Ishaan Fernandez [facility] Procedures Date Procedure Procedure Detail Performing Clinician Start: 02-06-2024 MR lumbar spine wo con DO Mike Wayne Work Phone: Start: 12-27-2023 X-ray of lumbar spin e, four views DO [employer] Work Phone: Start: 10-25-2023 Injection of local anesthetic into sacroiliac joint DO [employer] Work Phone: Start: 10-26-2022 Injection of spinal epidural space DO [employer] Work Phone: Start: 03-17-2021 Adult depression screening assessment Nayeli Garrett MD Work Phone: Plan of Treatment Date Care Activity Detail Author Start: 03-14-2026 DIABETES SCREEN DIABETES SCREEN [facility] Start: 03-17-2024 DIABETES SCREEN DIABETES SCREEN [facility] Start: 10-25-2023 [facility] Start: 04-07-2023 Influenza vaccination INFLUENZA (#1) [facility] Start: 10-26-2022 [facility] Start: 08-07-2022 DEPRESSION ASSESSMENT DEPRESSION ASS ESSMENT [facility] Start: 04-07-2022 Influenza vaccination INFLUENZA (#1) [facility] Start: 03-17-2022 Adult depression screening assessment DEPRESSION SCREENING [facility] Start: 03-15-2022 End: 05-15-2022 CBC W Auto Differential panel - Blood CBC + DIFF Lab Routine Non-small cell cancer of right lung (HCC) Expected: 03/15/2022, Expires: 05/15/2022 [facility] Work Phone: Comment on above: Expected: 03/15/2022 , Expires: 05/15/2022 Start: 03-15-2022 End: 05-15-2022 Comprehensive metabolic 2000 panel - Serum or Plasma COMP METABOLIC PANEL Lab Routine Non-small cell cancer of right lung (HCC) Expected: 03/15/2022, Expires: 05/15/2022 [facility] Work Phone: Comment on above: Expected: 03/15/2022 , Expires: 05/15/2022 Start: 02-11-2022 COVID-19 VACCINE (5 - Pfizer series) COVID-19 VACCINE (5 - Pfizer series) [facility] Start: 04-07-2021 COVID-19 VACCINE (3 - Booster for Pfizer series) COVID-19 VACCINE (3 - Booster for Pfizer series) [facility] Start: 2015 SHINGRIX VACCINE (1 of 2) SHINGRIX VACCINE (1 of 2) [facility] Start: 2010 COLOGUARD (FIT-DNA) COLOGUARD (FIT-D NA) [facility] Start: 2010 Colonoscopy COLONOSCOPY [facility] Start: 2010 COLORECTAL CANCER SCREENING COLORECTAL CANCER SCREENING [facility] Start: [address] COLONOGRAPHY [facility] Start: 2010 FECAL OCCULT BLOOD FECAL OCCULT BLOO D [facility] Start: 2010 LIPID SCREEN LIPID SCREEN [facility] Start: 2010 SIGMOIDOSCOPY SIGMOIDOSCOPY [facility] Start: 2005 Mammography MAMMOGRAM [facility] Start: 1995 HPV TESTING HPV TESTING [facility] Start: 1986 PAP TESTING PAP TESTING [facility] Start: 1984 Urine microalbumin profile DTAP,TDAP,TD (1 - Tdap) [facility] Start: 1983 HEPATITIS C SCREENING HEPATITIS C SC REENING [facility] Start: 1983 HIV SCREENING HIV SCREENING [facility] Start: 1965 HEPATITIS B (1 of 3 - 3-dose series) HEPATITIS B (1 of 3 - 3-dose series) [facility] End: 04-19-2024 Ct thorax w/o contrast material CT CHEST WO IVCON Radiology Routine 1 Occurrences starting 03/21/2023 until 04/19/2024 [facility] Work Phone: Comment on above: 1 Occurrences starti ng 03/21/2023 until 04/19/2024 MR Lumbar spine WO contrast [facility] Patient Education Leon Non Diagn ostic Block [facility] Work Phone: Patient referral [facility] Work Phone: XR Lumbar spine 4 Views [facility] Immunizations Immunization Date Immunization Notes Care Provider Fa octavia 06-08-2023 influenza, injectabl e, quadrivalent, preservative free DO [facility] Work Phone: [facility] 12-17-2021 COVID-19 Comirnaty (Pfizer) Tri-Sucrose 12+ DO Mike House Work Phone: [facility] 05-25-2021 COVID-19 mRNA, Comirnaty (Pfizer) DO Mike House Work Phone: [facility] 05-16-2021 COVID-19 mRNA, Comirnaty (Pfizer) DO Mike House Work Phone: [facility] 11-05-2020 COVID-19 mRNA, Comirnaty (Pfizer) DO Mike House Work Phone: [facility] 10-16-2020 COVID-19 mRNA, Comirnaty (Pfizer) DO Mike House Work Phone: [facility] 06-26-2020 pneumococcal conjuga te vaccine, 13 valent Nayeli Garrett MD Work Phone: [facility] 05-06-2020 influenza, injectabl e, quadrivalent, preservative free Nayeli Garrett MD Work Phone: [facility] 05-05-2020 influenza, injectabl e, quadrivalent, preservative free Nayeli Garrett MD Work Phone: [facility] 05-23-2013 influenza, seasonal, injectable Nayeli Garrett MD Work Phone: [facility] Payers Date Payer Category Payer Self-pay [id number] 2020 Private Health Insurance [facility] [employer] [id number] 2020-Present [phone] [address] [address] [place] [address] PPO [id number] 2020 Private Health Insurance [facility] [employer] [id number] 2020-Present [phone] [address] [address] [place] [address] PPO [id number] 2020 Unknown [id number] 1965 Unknown [id number] 2.16.840.1.108580.3.579. 2.593 1965 Unknown [id number] 2.16.840.1.245625.3.579. 2.593 1965 Unknown [id number] 2.16.840.1.446174.3.579. 2.593 1965 Unknown [id number] 2.16.840.1.480969.3.579. 2.1259 1965 Unknown [id number] 2.16.840.1.613404.3.579. 2.1259 1965 Unknown [id number] 2.16.840.1.216253.3.579. 2.1259 1965 Unknown [id number] 2.16.840.1.819339.3.579. 2.1259 1965 Unknown [id number] 2.16.840.1.005335.3.579. 2.718 1965 Unknown [id number] 2.16.840.1.202179.3.579. 2.718 1965 Unknown [id number] 2.16.840.1.976315.3.579. 2.718 1965 Unknown [id number] 2.16.840.1.913706.3.579. 2.718 1965 Unknown [id number] 2.16.840.1.696396.3.579. 2.718 1965 Unknown [id number] 2.16.840.1.731845.3.579. 2.718 1965 Unknown [id number] 2.16.840.1.776953.3.579. 2.718 1965 Unknown [id number] 2.16.840.1.153557.3.579. 2.718 1965 Unknown [id number] 2.16.840.1.841570.3.579. 2.718 1959 Unknown [id number] 2.16.840.1.005295.19 Unknown [id number] 2.16.840.1.664395.3.579. 2.531 Unknown [id number] 2.16.840.1.609269.3.579. 2.531 Unknown [id number] 2.16.840.1.980972.3.579. 2.531 Social History Date Type Detail Facility Start: 03-21-2023 [facility] Start: 07-13-2012 Tobacco smoking stat [facility] Never smoked tobacco [facility] Start: 07-13-2012 Tobacco use and exposure Smokeless tobacco non-user [facility] Start: 03-17-2021 End: 03-21-2023 Alcohol intake Current non-drinker of alcohol (finding) [facility] Start: 1965 [facility] Start: 01-20-2022 [facility] Start: 1965 Sex Assigned At Female F [facility] Start: 03-21-2023 History of Social function [facility] Adult Depression Screening Assessment 0 [facility] Goals Date Patient Goal Desired Activity /State Clinical Notes 11-05-2021 to 03-19-2024 Nayeli Garrett MD - 03/21/2023 7:49 AM EDT Note Date & Type Note Facility 03-19-2024 Note HNO ID: [id number] Author: ESTIVEN PAGE RT(R) Service: ? Author Type: Technologist Type: Progress Notes Filed: 03/19/2024 09:32 Note Text: Radiology Service Progress Note PATIENT NAME: Aminta Garcia DATE OF SERVICE: March 19, 2024 TIME: 9:29 AM PATIENT IDENTITY VERIFICATION COMPLETED USING TWO (2) IDENTIFIERS: Name and Date of confirmed by patient verbally. FALL SCREENING: Has the patient had 2 falls in the last year or 1 fall with injury or currently using an Ambulatory Assistive Device (Walker, Cane, Wheelchair, Crutches, etc.)? No PATIENT GENDER DATA: Female. status: : No status: NO. PATIENT RELEVANT IMPLANT DATA REVIEWED: Not Applicable PATIENT PRESENTS WITH AN IMPLANTABLE OR ATTACHED LICENSED AIRCRAFT MAINTENANCE ENGINEER: No RADIOLOGY DEPARTMENT: CT; Exam(s) Completed: Chest PERIPHERAL IV DATA: Not applicable SIGNED BY: RT Rubén(R) March 19, 2024 9:29 AM [facility] 02-25-2024 Note Entered by HEIDI WAYNE DO on February 25, 2024 14:10:02 EDT From: MIKE WAYNE DO To: [facility]/pharmacy #[id number] Sent: 02/25/2024 14:10:02 EDT Subject: Medication Management Submitted: Complete:diclofenac (diclofenac sodium 75 mg oral delayed release tablet) Signed by MIKE WAYNE DO 02/25/2024 14:10:00 EDT Approved with modifications: diclofenac (DICLOFENAC SOD EC 75 MG TAB) TAKE 1 TABLET BY MOUTH TWICE A DAY Qty: 60 tab(s) Days Supply: 30 Refills: 5 Substitutions Allowed Route To Pharmacy - [facility]/pharmacy #[id number] From: [id number] To: MIKE WAYNE DO Sent: February 24, 2024 12:03:29 AM CDT Subject: Medication Management Due: February 25, 2024 12:03:29 AM CDT On Hold Pending Signature Dispensed Drug: diclofenac (diclofenac sodium 75 mg oral delayed release tablet), TAKE 1 TABLET BY MOUTH TWICE A DAY Quantity: 60 tab(s) Days Supply: 30 Refills: 1 Substitutions Allowed Notes from Pharmacy: [facility] 10-25-2023 Procedure note [facility] 07-11-2023 Note Entered by WALI UMANZOR on July 11, 2023 07:46:02 EST From: SUJATA UMANZOR To: [facility]/pharmacy #[id number] Sent: 07/11/2023 07:46:02 EST Subject: FW: Medication Management Documented Complete:pantoprazole (pantoprazole 40 mg oral delayed release tablet) Signed by SUJATA UMANZOR 07/11/2023 07:46:00 EST Approved with modifications: pantoprazole (PANTOPRAZOLE SOD DR 40 MG TAB) TAKE 1 TABLET BY MOUTH EVERY DAY Qty: 90 tab(s) Days Supply: 90 Refills: 1 Substitutions Allowed Route To Pharmacy - [facility]/pharmacy #[id number] Signed by SUJATA UMANZOR Patient matched by SUJATA UMANZOR on 07/11/2023 07:44:35 EST From: MIKE WAYNE DO To: [facility] Clinical Pool ([facility] Sent: 07/11/2023 07:39:44 EST Subject: FW: Medication Management Due Date/Time: 07/11/2023 20:14:00 EST From: [id number] To: MIKE WAYNE DO Sent: July 10, 2023 7:14:17 PM SPRING [employer]ACKER Subject: Medication Management Due: July 11, 2023 12:04:19 AM SPRING TACKER On Hold Pending Signature Dispensed Drug: pantoprazole (pantoprazole 40 mg oral delayed release tablet), TAKE 1 TABLET BY MOUTH EVERY DAY Quantity: 90 tab(s) Days Supply: 90 Refills: 1 Substitutions Allowed Notes from Pharmacy: [facility] 03-21-2023 Note HNO ID: [id number] Author: Nayeli Garrett MD Service: ? Author Type: Physician Type: Progress Notes Filed: 03/22/2023 7:47 AM Note Text: PATIENT NAME: Aminta Garcia DATE: 03/21/2023 PRIMARY CARE PHYSICIAN: Dr. Wayne OTHER PHYSICIAN: Dr. Duarte ([facility]) Portions of this encounter note have been copied from my note from 03/15/2022 and has been updated where appropriate, and reflect my current medical decision making from today. CC: This is a 57 year old female with a history of lung cancer and melanoma, seen for scheduled follow-up. INTERIM HISTORY: Since the patient's last visit here she developed increasing cough and shortness of breath. She was given an inhaler (Symbicort) per PCP and her pulmonary symptoms improved. However, the inhaler cost more than $400, and she states today that she cannot afford it. Otherwise she has had no significant medical changes. Her pulmonary symptoms overall are quite mild. She has had no unusual pain or other systemic symptoms. She continues to follow-up with her bacteriology technician on a yearly basis, and has had no significant skin changes. MEDICATIONS: calcium phosphate dibas/vit D3 (VITAMIN D, WITH CALCIUM, ORAL) Take by mouth. azithromycin (ZITHROMAX Z-KEILA) 250 mg tablet Take two (2) tablets by mouth the first day and then one (1) tablet daily for 4 days. citalopram (CELEXA) 20 mg tablet Take 20 mg by mouth once daily. cyanocobalamin (VITAMIN B-12) 100 mcg tab Take 100 mcg by mouth once daily. fexofenadine (NERIS) 180 mg tablet Take 180 mg by mouth once daily. lisinopril (ZESTRIL, PRINIVIL) 20 mg tablet Take 20 mg by mouth once daily. POTASSIUM/MAGNESIUM (MAGNESIUM-POTASSIUM ORAL) Take by mouth. MULTI-VITAMIN ORAL Take 1 tablet by mouth once daily. ALLERGIES: Patient has no known allergies. PAST MEDICAL HISTORY: PAST MEDICAL HISTORY Diagnosis Date Non-small cell lung cancer (HCC) PAST SURGICAL HISTORY: PAST SURGICAL HISTORY Procedure Laterality Date HYSTERECTOMY HX KNEE SURGERY HX Right REMOVAL OF LUNG,LOBECTOMY Right lower REVISE MEDIAN N/CARPAL TUNNEL SURG Left TONSILLECTOMY HX REVIEW OF SYSTEMS: GENERAL: No weight loss, malaise or fevers. Positive fatigue HEENT: Negative for frequent or significant headaches, No changes in hearing or vision, no nose bleeds or other nasal problems. No palpable thyromegaly. RESPIRATORY: Negative for cough, wheezing Positive increased shortness of breath with exertion CARDIOVASCULAR: Negative for chest pain, leg swelling or palpitations. GI: Negative for abdominal discomfort, blood in stools or black stools or change in bowel habits : No history of dysuria, frequency or incontinence MUSCULOSKELETAL: pain in right rib under breast SKIN: Negative for lesions, rash, and itching. HEMATOLOGY/LYMPHOLOGY: Negative for prolonged bleeding, bruising easily or swollen nodes. NEURO: No history of headaches, syncope, paralysis, seizures or tremors PHYSICAL EXAM: Vitals: BP 140/70 Pulse 73 Temp 36.1 ?C (96.9 ?F) (Temporal) Resp 18 Ht 168.9 cm (5' 6.5 ) Wt 82.5 kg (181 lb 12.8 oz) SpO2 99% BMI 28.91 kg/m? General appearance: well appearing, alert, in no acute distress, well-hydrated, well nourished Skin: skin color, texture, turgor normal, no suspicious rashes or lesions Head: normal Eyes: Anicteric sclera. Pupils are equally round and reactive to light. Extraocular movements are intact. Ears: negative findings: external ears normal to inspection and palpation Oropharynx: negative Neck: Supple, no adenopathy; thyroid symmetric, normal size Lymph Nodes: No Submandibular, cervical, supraclavicular, axillary, or inguinal lymphadenopathy present Lungs: clear to auscultation, no wheezing or rhonchi Heart: Negative. RRR without murmur, gallop, or rubs. No ectopy. Abdomen: Normal abdominal exam, Abdomen soft, non-tender. Bowel sounds normal. No masses, organomegaly Rectal: Not done Extremities: Extremities normal. No deformities, edema, or skin discoloration. Good capillary refill. Musculoskeletal: No joint swelling, deformity, or tenderness. Peripheral pulses: Normal RADIOLOGY/OTHER STUDIES: 03/14/2023 CT chest IMPRESSION: 1. Overall stable CT of the chest. Stable postsurgical changes in keeping with right lower lobectomy. 2. Stable right apical and right upper lobe consolidative opacity. 3. Stable nodular opacity in the left upper lobe. No new or enlarging nodules are visualized. 4. No evidence of intrathoracic adenopathy. 03/09/2022 CT chest IMPRESSION: 1. No significant change since 03/12/2021. 2. Stable postoperative changes involving the right lung, status post right lower lobectomy. 3. Unchanged nodular cluster of opacities within the left lung apex measuring 1 x 1.4 cm. No enlarging suspicious pulmonary nodule. 03/15/2021 CT CHEST IMPRESSION: Stable CT examination of the chest. 01/25/[address] (more content not included)... [facility] 03-21-2023 History of Present illness Narrative PATIENT NAME: Aminta Garcia DATE: 03/21/2023 PRIMARY CARE PHYSICIAN: Dr. Wayne OTHER PHYSICIAN: Dr. Duarte ([facility]) Portions of this encounter note have been copied from my note from 03/15/2022 and has been updated where appropriate, and reflect my current medical decision making from today. CC: This is a 57 year old female with a history of lung cancer and melanoma, seen for scheduled follow-up. INTERIM HISTORY: Since the patient's last visit here she developed increasing cough and shortness of breath. She was given an inhaler (Symbicort) per PCP and her pulmonary symptoms improved. However, the inhaler cost more than $400, and she states today that she cannot afford it. Otherwise she has had no significant medical changes. Her pulmonary symptoms overall are quite mild. She has had no unusual pain or other systemic symptoms. She continues to follow-up with her bacteriology technician on a yearly basis, and has had no significant skin changes. MEDICATIONS: calcium phosphate dibas/vit D3 (VITAMIN D, WITH CALCIUM, ORAL) Take by mouth. azithromycin (ZITHROMAX Z-KEILA) 250 mg tablet Take two (2) tablets by mouth the first day and then one (1) tablet daily for 4 days. citalopram (CELEXA) 20 mg tablet Take 20 mg by mouth once daily. cyanocobalamin (VITAMIN B-12) 100 mcg tab Take 100 mcg by mouth once daily. fexofenadine (NERIS) 180 mg tablet Take 180 mg by mouth once daily. lisinopril (ZESTRIL, PRINIVIL) 20 mg tablet Take 20 mg by mouth once daily. POTASSIUM/MAGNESIUM (MAGNESIUM-POTASSIUM ORAL) Take by mouth. MULTI-VITAMIN ORAL Take 1 tablet by mouth once daily. ALLERGIES: Patient has no known allergies. PAST MEDICAL HISTORY: PAST MEDICAL HISTORY Diagnosis Date Non-small cell lung cancer (HCC) PAST SURGICAL HISTORY: PAST SURGICAL HISTORY Procedure Laterality Date HYSTERECTOMY HX KNEE SURGERY HX Right REMOVAL OF LUNG,LOBECTOMY Right lower REVISE MEDIAN N/CARPAL TUNNEL SURG Left TONSILLECTOMY HX REVIEW OF SYSTEMS: GENERAL: No weight loss, malaise or fevers. Positive fatigue HEENT: Negative for frequent or significant headaches, No changes in hearing or vision, no nose bleeds or other nasal problems. No palpable thyromegaly. RESPIRATORY: Negative for cough, wheezing Positive increased shortness of breath with exertion CARDIOVASCULAR: Negative for chest pain, leg swelling or palpitations. GI: Negative for abdominal discomfort, blood in stools or black stools or change in bowel habits : No history of dysuria, frequency or incontinence MUSCULOSKELETAL: pain in right rib under breast SKIN: Negative for lesions, rash, and itching. HEMATOLOGY/LYMPHOLOGY: Negative for prolonged bleeding, bruising easily or swollen nodes. NEURO: No history of headaches, syncope, paralysis, seizures or tremors PHYSICAL EXAM: Vitals: BP 140/70 Pulse 73 Temp 36.1 C (96.9 F) (Temporal) Resp 18 Ht 168.9 cm (5' 6.5 ) Wt 82.5 kg (181 lb 12.8 oz) SpO2 99% BMI 28.91 kg/m General appearance: well appearing, alert, in no acute distress, well-hydrated, well nourished Skin: skin color, texture, turgor normal, no suspicious rashes or lesions Head: normal Eyes: Anicteric sclera. Pupils are equally round and reactive to light. Extraocular movements are intact. Ears: negative findings: external ears normal to inspection and palpation Oropharynx: negative Neck: Supple, no adenopathy; thyroid symmetric, normal size Lymph Nodes: No Submandibular, cervical, supraclavicular, axillary, or inguinal lymphadenopathy present Lungs: clear to auscultation, no wheezing or rhonchi Heart: Negative. RRR without murmur, gallop, or rubs. No ectopy. Abdomen: Normal abdominal exam, Abdomen soft, non-tender. Bowel sounds normal. No masses, organomegaly Rectal: Not done Extremities: Extremities normal. No deformities, edema, or skin discoloration. Good capillary refill. Musculoskeletal: No joint swelling, deformity, or tenderness. Peripheral pulses: Normal RADIOLOGY/OTHER STUDIES: 03/14/2023 CT chest IMPRESSION: 1. Overall stable CT of the chest. Stable postsurgical changes in keeping with right lower lobectomy. 2. Stable right apical and right upper lobe consolidative opacity. 3. Stable nodular opacity in the left upper lobe. No new or enlarging nodules are visualized. 4. No evidence of intrathoracic adenopathy. 03/09/2022 CT chest IMPRESSION: 1. No significant change since 03/12/2021. 2. Stable postoperative changes involving the right lung, status post right lower lobectomy. 3. Unchanged nodular cluster of opacities within the left lung apex measuring 1 x 1.4 cm. No enlarging suspicious pulmonary nodule. 03/15/2021 CT CHEST IMPRESSION: Stable CT examination of the chest. 01/25/[address] IMPRESSION: 1. No interval change since 01/16/2018. 2. Consolidative opacities and pleural thickening with pleural calcifications, stable most likely combination of post radiation change and postoperative change. 3. Cluster of reticulonodular opacities in the left upper lobe and punctate left lower lobe nodular opacity, stable. 01/26/2017 THYROID US ([facility] [place]) Multiple cystic and solid nodules bilaterally, more pronounced on the right. These are probably benign, but a repeat thyroid ultrasound in one year is recommended. ASSESSMENT/PLAN: 1. 162.9 Non-small cell lung cancer (primary diagnosis) Stage II (T4, N0, M0) adenocarcinoma of the right lung lower lobe diagnosed May 2009. Status post right lower lobectomy 05/13/2009 (Dr. Haque, [facility] [place]). Status post adjuvant chemotherapy with cisplatin plus Alimta (stopped after 2 cycles due to renal failure and other complications). Since initial treatment she has had no evidence of recurrence. Most recent chest CT 03/14/2023 stable. Currently the patient has no evidence of disease. At this time we will continue routine follow-up. I will see the patient on a yearly basis with labs and a chest CT. We will further stage as indicated if suspicious signs or symptoms develop. For cough and shortness of breath the patient was prescribed Symbicort per PCP, but apparently she cannot afford. Akil Rivas is covered by her insurance, and per patient request we will prescribe that today. She will follow-up with her PCP for further management. 2. 172.9 Melanoma Stage I melanoma of the skin over the sacrum diagnosed June 2007. Status post complete surgical resection with negative margins. Currently no evidence of disease. We will continue routine follow-up, and stage as indicated if suspicious signs or symptoms develop. She will continue to follow-up her bacteriology technician on a yearly basis for a complete skin exam. 3. Thyroid nodule - ICD9: 241.0, ICD10: E04.[address] January 2017 revealed multiple benign-appearing thyroid nodules. Thyroid ultrasound 01/26/2017 consistent with multiple thyroid nodules bilaterally, most likely benign. Repeat thyroid US 02/02/2019 stable. At the patient's request we will monitor clinically, and refer to ENT for further management if her thyroid nodules worsen significantly. Nayeli Garrett MD documented in this encounter [facility] 01-05-2023 Evaluation note Encounter Date Diagnosis Assessment Notes Jan, Displacement of lumbar disc with radiculopathy (ICD-10 - M51.16) Interestingly this patient states that at the end of the workday she has to drag herself home because her legs feel so heavy bilaterally. Her right leg her iliopsoas now has 4-5/5 strength she still is got decreased sensation in the right anterior thigh but the pain is gone and she is quite functional. With regard to bilateral leg symptoms I again reviewed her MRI which shows no evidence of canal narrowing. She has a right L2-3 far lateral disc herniation which could not cause the symptoms. I gave her reassurance. I do not have an origin for the leg symptoms. [employer] Other 04-06-2023 Evaluation note* Encounter Date Diagnosis Assessment Notes Treatment Notes Treatment Clinical Notes Nov, Displacement of lumbar disc with radiculopathy (ICD-10 - M51.16) I independently again reviewed this MRI of the lumbar spine showing a foraminal disc at L2-3. Patient had very bad symptoms initially back in August they significantly have gotten better. She has a regression of the numbness now only on the anterior thighs she feels her iliopsoas is slightly weak but not enough disability to warrant surgical intervention in the patient's opinion and in mind. I will see the patient on an as-needed basis she is continuing to improve if she worsens she will notify me and come back. [employer] Other 04-04-2023 Evaluation note* Encounter Date Diagnosis Assessment Notes Treatment Notes Treatment Clinical Notes Nov, Lumbar radiculopathy (ICD-10 - M54.16) 57 year old female here for follow up status post right L2 transforaminal epidural steroid injection under fluoroscopic guidance. Patient reports 90% pain relief as well as improved walking, standing and daily functions following procedure. She denies any pain in the right lower extremity but notes some numbness in the leg. Overall, she appears to be doing well at this time. I recommend she increase her activities as tolerated. She is counseled against any excessive bending or twisting. She is advised to call the office if her pain returns. Nov, Lumbar degenerative disc disease (ICD-10 - M51.36) Continue with current treatment plan Nov, Chronic pain (ICD-10 - G89.29) Follow up as needed. [employer] [facility] Encounter Date Diagnosis Assessment Notes Treatment Notes Treatment Clinical Notes Oct, Lumbar radiculopathy (ICD-10 - M54.16) 57 year old femlae presents with complaints of low back pain with radiation down the anterior aspect of the right thigh to the knee. She feels the low back has not been bothersome in over 1 month. She notes a long history of back pain, but notes this episode started in August with no known inciting trauma. She denies any recent physical therapy. She feels pain can negatively impact her daily activities and sleeping pattern. Prior to examining the patient, I reviewed progress notes from her referring physician, Dr Martinez. I also independently reviewed previous imaging of the lumbar spine which shows a disc bulge at the L2 level. Anatomy of spine discussed in detail with patient in regards to patients condition. Patient is a candidate for a L2 transforaminal epidural steroid injection on the right right side under fluoroscopic guidance. Risks and benefits of procedure explained to patient; patient verbalizes understanding. Oct, Lumbar degenerative disc disease (ICD-10 - M51.36) Continue with current treatment plan Oct, Chronic pain (ICD-10 - G89.29) Oct, Other Medical deci ender making shows a new problem to me with further workup planned or suggested with the potential for extensive treatment options that were considered with the most applicable given this patient's situation as noted above. Treatment options considered include a combination of physical therapy approaches, pharmacologic management, and interventional procedures. Those most applicable to the patient were discussed at this time. Risk of complications and/or morbidity and mortality is high given that acute and chronic pain poses a threat to life and bodily function if undertreated, poorly treated or with failure to maintain adequate treatment and timely followup. Given the serious and fluctuating nature of pain with extensive consideration for whenever pain changes, there always remains the possibility of prolonged functional impairment requiring constant patient reassessment and high-level medical decision making. The amount and complexity of data reviewed is high given that patient labs, radiology reports, and other test were obtained, reviewed and summarized as applicable from the physician portal and/or outside medical records. Pertinent positive and negative findings were considered in medical decision-making. [employer] Other 02-23-2023 Evaluation note* Encounter Date Diagnosis Assessment Notes Treatment Notes Treatment Clinical Notes Sep, Displacement of lumbar disc with radiculopathy (ICD-10 - M51.16) I independently reviewed the MRI of the lumbar spine and the report. At L2-3 on the right there is a far lateral disc herniation compressing the L2 nerve root outside the foramen.This is causing the pain in her thigh which is moderate. She would like to try conservative care and I think that is reasonable; I would recommend pain management. I personally would recommend a transforaminal injection L2-3 on the right, this may give the best potential relief for the patient given this problem. I would like to see her again in 6 weeks. I would prefer not to cover the pain with Gabapentin and make her think she is getting better with no treatment [employer] Other 06-08-2022 Evaluation note* Encounter Date Diagnosis Assessment Notes Treatment Notes Treatment Clinical Notes Jan, Ischemic colitis (ICD-10 - K55.9) Jan, Gastroesophageal ref lux disease, unspecified whether esophagitis present (ICD-10 - K21.9) Jan, Irritable bowel syndrome with both constipation and diarrhea (ICD-10 - K58.2) [facility] [email or web address] Other 04-01-2022 Miscellaneous Notes* Telephone Encounter - Janel Salomon - 03/02/2022 9:06 AM EDT Patient coming in on Monday03/15/22 for 1 year follow up with labs. Please add lab orders. Thanks, Janel Salomon MA [facility]* Diagnosis Non-small cell cancer of right lung (HCC)- Primary [facility]No InformationNortDepartment [facility] [email or web address] Other Evaluation noteNo assessment information available [facility] Work Phone: Evaluation note* Diagnosis Non-small cell cancer of right lung (HCC)- Primary Malignant melanoma of torso excluding breast (HCC) Multiple thyroid nodules Nontoxic multinodular goiter [facility] Diagnosis Onset Date Resolution Status Chronic pain acute Lumbar degenerative disc disease acute Lumbar spondylosis with myelopathy acute Sacroiliitis acute [facility] Work Phone: Evaluation note* Diagnosis Onset Date Resolution Status Chronic pain acute Lumbar degenerative disc disease acute Lumbar spondylosis with myelopathy acute Sacroiliitis acute Chronic pain acute Lumbosacral spondylosis acut e Sacroiliitis acute [facility] Work Phone: Evaluation note* Diagnosis Onset Date Resolution Status Chronic pain acute Lumbar degenerative disc disease acute Lumbar spondylosis with myelopathy acute Sacroiliitis acute Chronic pain acute Lumbosacral spondylosis acut e Sacroiliitis acute Chronic pain acute Lumbar degenerative disc disease acute Sacroiliitis acute [facility] Work Phone: Evaluation note* Diagnosis Onset Date Resolution Status Chronic pain acute Lumbar degenerative disc disease acute Sacroiliitis acute [facility] Work Phone: Evaluation note* Diagnosis Onset Date Resolution Status Chronic pain acute Lumbar degenerative disc disease acute Sacroiliitis acute Chronic pain acute Lumbosacral spondylosis acut e Neurogenic claudication due to lumbar spinal stenosis acute [facility] Work Phone: History general Narrative - Reported* Type Description Date Medical History melanoma Medical History right lung cancer Medical History HTN Medical History depression Medical History migrane headaches Medical History irritable bowel syndrome Surgical History Tonsillectomy Surgical History melanoma Surgical History port a cath insertion/removal 2 009 Surgical History KRISHNA / BSO Surgical History right lobectomy Surgical History exc lipoma gluteus 2010 Surgical History cervical fusion Surgical History RT knee partial medi al meniscectomy with resection PLICA superior lateral patella pouch Dr Caballero 09/11/2019 Surgical History bilateral carpal tunnel release Hospitalization History see sx history [employer] Other Hislygv general Narrative - Reported* Type Description Date Medical History melanoma Medical History right lung cancer Medical History HTN Medical History depression Medical History migrane headaches Medical History irritable bowel syndrome Medical History Arthritis Surgical History Tonsillectomy Surgical History melanoma Surgical History port a cath insertion/removal 2 009 Surgical History KRISHNA / BSO Surgical History right lobectomy Surgical History exc lipoma gluteus 2010 Surgical History cervical fusion Surgical History RT knee partial medi al meniscectomy with resection PLICA superior lateral patella pouch Dr Caballero 09/11/2019 Surgical History bilateral carpal tunnel release Surgical History hernia repair Hospitalization History see sx history [employer] Other Reason for Referral Specialty Diagnoses / Procedures Referred By Martha t Referred To Contact CT IMAGING Diagnoses Malignant neoplasm of unspecified part of unspecified bronchus or lung (HCC) Procedures CT CHEST WO IVCON DIAGNOSTIC COMPUTED TOMOGRAPHY THORAX W/O CNTTUSHART Nayeli Garrett MD [address] [place] [address] [place] [address] [place] [address] Referral ID Status Reason Start Date Expiration Date Visits Requested Visits Authorized [id number] Authorized Auto-Generat ed Referral 03/21/2023 04/19/2024 1 1 Reason 10/12/22 @ 3:00 Ev aluate and Treat with Transforaminal Injection L2-3 R Diagnosis 1 Displacement of lumb ar disc with radiculopathy (M51.16) Referral Organization [facility] urosurgery Referring Provider First Name Jensen Referring Provider Last Name Juan Referring Provider Specialty Neurologica l Surgery Referred Organization [facility] Referred Provider Campbell Quintero Referred Address [address],[address] Referred Provider Specialty Pain Medicin e Referral Priority Routine Referral Appointment Date 2022-10-12 General Notes Lisa Alas 023 11:31:26 AM >Received today and sent P2P Chitra Dove 10/04/2022 03:08:48 PM >pt has been scheduled Lisa Alas 10/13/2022 08:20:57 AM >Sent telephone encounter to referring physician to let them know that the consult letter is ready for their review Chief Complaint and Reason for Visit Chief Complaint Back Pain Chief Complaint increase in pain Back Pain Reason for Visit Chronic pain Lumbar degenerative disc disease Lumbar spondylosis with myelopathy Sacroiliitis Chief Complaint increase in pain Back Pain Back Pain FOLLOW UP AFTER LEFT SI Reason for Visit Chronic pain Lumbar degenerative disc disease Lumbar spondylosis with myelopathy Sacroiliitis Chronic pain Lumbosacral spondylosis Sacroiliitis Chief Complaint increase in pain Back Pain Back Pain FOLLOW UP AFTER LEFT SI M46.1 M47.16 M51.36 G89.29 Reason for Visit Chronic pain Lumbar degenerative disc disease Lumbar spondylosis with myelopathy Sacroiliitis Chronic pain Lumbosacral spondylosis Sacroiliitis Chief Complaint increase in pain Back Pain Back Pain FOLLOW UP AFTER LEFT SI M46.1 M47.16 M51.36 G89.29 review imaging Reason for Visit Chronic pain Lumbar degenerative disc disease Lumbar spondylosis with myelopathy Sacroiliitis Chronic pain Lumbosacral spondylosis Sacroiliitis Chronic pain Lumbar degenerative disc disease Sacroiliitis Chief Complaint M46.1 M47.16 M51.36 G89.29 review imaging M51.36 Reason for Visit Chronic pain Lumbar degenerative disc disease Sacroiliitis Chief Complaint M46.1 M47.16 M51.36 G89.29 review imaging M51.36 review MRI Reason for Visit Chronic pain Lumbar degenerative disc disease Sacroiliitis Chronic pain Lumbosacral spondylosis Neurogenic claudication due to lumbar spinal stenosis Family History No Family History Records Found Relationship Condition Age at Onset Recorded Date/T tona father Heart disease Unknown Not Specified Hypertension Unknown Relationship Condition Age at Onset Recorded Date/T tona father Heart disease Unknown Not Specified Hypertension Unknown father Unknown Heart disease Unknown family member Unknown Relationship Condition Age at Onset Recorded Date/T tona father Heart disease Unknown mother Hypertension Unknown father Unknown Heart disease Unknown family member Unknown Advance Directives No Advanced Directives Records Found Advance Directive Response Recorded Date/ Time Advance Directives No February 08 8 9:32am Summary Purpose Additional Source Comments REASON FOR VISIT (unrecogniz ed section and content) Reason Comments Lab Orders Reason Comments Lung Cancer Follow up Specialty Diagnoses / Procedures Referred By Contac t Referred To Contact Laboratory Medicine / LAB SAND Diagnoses Non-small cell cancer of right lung (HCC) lab Procedures BLOOD COUNT COMPLETE AUTO&AUTO DIFRNTL WBC COMPREHENSIVE METABOLIC PANEL LAB BLOOD DRAW Nayeli Clancy MD [address] [place] [address] [place] [address] [facility] [address] [place] [address] Referral ID Status Reason Start Date Expiration Date Visits Re quested Visits Authorized [id number] Closed 03/14/2023 08/06/2023 1 1 Source Comments (unrecognize d section and content) In the event this informatio n is protected by the Federal Confidentiality of Alcohol and Drug Abuse Patient Records regulations: The Federal rules restrict any use of the information to criminally investigate or prosecute any alcohol or drug abuse patient.[facility] Hospital[facility] the event this information is protected by the Federal Confidentiality of Alcohol and Drug Abuse Patient Records regulations: The Federal rules restrict any use of the information to criminally investigate or prosecute any alcohol or drug abuse patient.[facility] Care Teams (unrecognized sec tion and content) Cardiac Monitor Relationship Specialty Start Date End Date Mike Wayne SrYuki PCP - General Family Practice 01/09/15 Team Status: Active Member Role Status Dates Mike Wayne DO Primary Care Provider Active Team Status: Inactive Member Role Status Nikhil Wayne DO Primary Care Provider Active Campbell Quintero MD Attending Provider Active Cardiac Monitor Relationship Specialty Start Date End Date Mike Wayne Sr. PCP - General Family Medicine 01/09/15 Team Status: Inactive Member Role Status Nikhil Quintero MD Attending Provider Active Sta rt: October 13, 2023 End: October 13, 2023 Mike Wayne DO Primary Care Provider Active Start: October 13, 2023 End: October 13, 2023 Team Status: Inactive Member Role Status Nikhil aWyne DO Primary Care Provider Active Start: October 25, 2023 End: October 25, 2023 Campbell Quintero MD Attending Provider Active Sta rt: October 25, 2023 End: October 25, 2023 Team Status: Active Member Role Status Nikhil Wayne DO Primary Care Provider Active Start: October 25, 2023 Campbell Quintero MD Attending Provider, Other Provider Active Start: October 25, 2023 Team Status: Inactive Member Role Status Nikhil Wayne DO Primary Care Provider Active Start: November 01, 2023 End: November 01, 2023 Campbell Quintero MD Attending Provider Active Sta rt: November 01, 2023 End: November 01, 2023 Team Status: Inactive Member Role Status Nikhil Wayne DO Primary Care Provider Active Start: December 27, 2023 End: December 27, 2023 Campbell Quintero MD Attending Provider Active Sta rt: December 27, 2023 End: December 27, 2023 Team Status: Inactive Member Role Status Dates Mike Wayne DO Primary Care Provider Active Start: January 10, 2024 End: January 10, 2024 Campbell Quintero MD Attending Provider Active Sta rt: January 10, 2024 End: January 10, 2024 Team Status: Inactive Member Role Status Dates Mike Wayne DO Primary Care Provider Active Start: February 06, 2024 End: February 06, 2024 Campbell Quintero MD Attending Provider Active Sta rt: February 06, 2024 End: February 06, 2024 Team Status: Inactive Member Role Status Dates Mike Wayne DO Primary Care Provider Active Start: March 04, 2024 End: March 04, 2024 Campbell Quintero MD Attending Provider Active Sta rt: March 04, 2024 End: March 04, 2024 INFORMATION SOURCE (unrecogn ized section and content) DATE CREATED AUTHOR 12/10/2022 [facility] DATE CREATED AUTHOR AUTHOR'S ORGANIZ ATION 04/19/2023 [facility] DATE CREATED AUTHOR AUTHOR'S ORGANIZ ATION 11/10/2023 [facility] EPIC DATE CREATED AUTHOR AUTHOR'S ORGANIZ ATION 02/08/2024 [facility] DATE CREATED AUTHOR AUTHOR'S ORGANIZ ATION 03/20/2024 [facility] DATE CREATED AUTHOR AUTHOR'S ORGANIZ ATION 03/21/2024 [facility] Goals (unrecognized section and content) Goals may be documented in a n alternate section FOR RECORDS PERTAINING TO PATIENTS WHO ARE OR HAVE BEEN ENROLLED IN A CHEMICAL DEPENDENCY/SUBSTANCEABUSE PROGRAM, SOME INFORMATION MAY BE OMITTED. This clinical summary was aggregated from multiple sources. Caution should be exercised in using it in the provision of clinical care. This summary normalizes information from multiple sources, and as a consequence, information in this document may materially change the coding, format and clinical context of patient data. In addition, data may be omitted in some cases. CLINICAL DECISIONS SHOULD BE BASED ON THE PRIMARY CLINICAL RECORDS. [employer] [facility]. provides no warranty or guarantee of the accuracy or completeness of information in this document.
--- NOTE | 2024-03-24 16:20 | XR_ITS ---
The [address] [address] Patient Name: JANIE GARCIA MRN: [id number] date: 1965 Sex: F Assigned Patient Location: ED.MAIN Current Patient Location: ER Accession/Order Number: [id number] Exam Date: 03/24/2024 16:50 Report Date: 03/24/2024 17:36 At the request of: SHARMAINE SUE Procedure: XR chest 2V EXAM: XR chest 2V HISTORY: cough, weakness COMPARISON: 01/04/2017 chest x-ray. CT abdomen pelvis including the lower chest 11/22/2021. TECHNIQUE: PA, lateral chest x-ray. FINDINGS: No infiltrate or edema or other acute process. Postsurgical changes right lower chest better seen on prior AP. Small nodule right upper lung field probable small granuloma. Normal heart size and mediastinal contour unchanged. No developing pleural effusion or pneumothorax. Elevated right diaphragm consistent with previous lung surgery unchanged. XR/XR chest 2V IMPRESSION: Stable chest x-ray without new or acute appearing abnormality. Electronically authenticated by: RUBEN ALONZO Date: 03/24/2024 17:36
--- NOTE | 2024-03-24 16:20 | ECG_ITS ---
The [facility] Test Date: 2024-03-24 Pat Name: JANIE GARCIA Department: Room: - Gender: Female Global Program Manager: : 1965 Requested By: [id number] Order Number: [id number] Reading MD: RAJNI OMALLEY Measurements Intervals [place] Rate: 99 P: 68 MO: 132 QRS: 35 QRSD: 88 T: 37 QT: 340 QTc: 396 Interpretive Statements 1100 Sinus rhythm 1570 with occasional ventricular premature complexes [address] depression 9150 abnormal ECG No previous ECG available for comparison Electronically Signed On 03-24-2024 18:57:08 EDT by RAJNI OMALLEY
[2024-03-24 16:40] LABS: Bilirubin Urine SMALL (NEGATIVE); Blood Urine MODERATE (NEGATIVE); Clarity Urine CLEAR (CLEAR); Color Urine YELLOW (YELLOW); Glucose Urine UA NEGATIVE (NEGATIVE); Ketones Urine TRACE mg/dL (NEGATIVE); Leukocyte Esterase Urine NEGATIVE (NEGATIVE); Nitrite Urine NEGATIVE (NEGATIVE); Protein Urine >=300 mg/dL (NEG/TRACE); Specific Gravity Urine >=1.030 (1.005-1.025)
[2024-03-24 16:41] LABS: Urine Microscopic Indicated YES
[2024-03-24] MEDS: KETOROLAC TROMETHAMINE 30 MG/ML VIAL IVP (16:42)
[2024-03-24] MEDS: 0.9 % SODIUM CHLORIDE 1,000 ML 999 ML IV (16:42)
[2024-03-24] MEDS: ONDANSETRON PF 4 MG/2 ML VIAL IV (16:43)
[2024-03-24 16:47] LABS: Bacteria Urine SMALL #/HPF (NONE SEEN); Cast Seen? SEEN #/LPF (NONE SEEN); Crystals Seen? None Seen #/HPF (None Seen); Hyaline Casts Urine MODERATE; Mucus Urine TRACE (NONE SEEN); Squamous Epithelial Cell Urine FEW #/LPF (NONE/RARE)
[2024-03-24 16:49] LABS: Urine Culture Indicated YES
[2024-03-24 16:50] LABS: Internal Control Within Normal Limits; SARS-CoV-2 Ag NEGATIVE (NEGATIVE)
[2024-03-24 17:02] LABS: Hematocrit 30.5 % (36.0-48.0); Hemoglobin 10.6 g/dL (12.0-16.0); Mean Corpuscular HGB Conc 34.8 g/dL (29.9-35.2); Mean Corpuscular Hemoglobin 30.8 pg (26.7-34.0); Mean Corpuscular Volume 88.7 fL (81.0-99.0); Red Blood Count 3.44 10^6/uL (4.20-5.40)
[2024-03-24 17:06] LABS: Platelet Count 27 10^3/uL (150-450); White Blood Count 165.1 10^3/uL (4.0-11.0)
[2024-03-24 17:19] LABS: Alanine Aminotransferase 25 U/L (14-59); Albumin Globulin Ratio 1.2; Albumin Level 4.2 g/dL (3.4-5.0); Alkaline Phosphatase 125 U/L (46-116); Anion Gap 11.5; Aspartate Amino Transferase 27 U/L (15-37); BUN Creatinine Ratio 13.6; Bilirubin Total 1.6 mg/dL (0.2-1.0); Calcium 9.2 mg/dL (8.5-10.1); Carbon Dioxide 29.6 mmol/L (21.0-32.0); Chloride 96 mmol/L (98-107); Estimated GFR (African America 57 (>=60); Estimated GFR (Non-African Ame 47 (>=60); Globulin 3.4 g/dL; Glucose 123 mg/dL (74-106); Potassium 3.1 mmol/L (3.5-5.1); Sodium 134 mmol/L (136-145); Total Protein 7.6 g/dL (6.4-8.2)
[2024-03-24 17:35] LABS: Segmented Neut Absolute Manual 4.95 10^3/uL (1.4-6.5)
[2024-03-24 17:36] LABS: Blast Absolute Manual 141.98; Monocytes Absolute Manual 8.25 10^3/uL (0.30-0.80)
[2024-03-24 18:06] LABS: Lactate Dehydrogenase 1233 U/L (81-234)
--- NOTE | 2024-03-24 18:09 | ED.GENADUL1 ---
HPI HPI - General Adult General Chief complaint: Headache Stated complaint: Flu Like Symptoms Time Seen by Provider: 03/24/24 16:07 Source: patient Mode of arrival: walk-in Limitations: no limitations History of Present Illness HPI narrative: 58-year-old female to the emergency department with chief complaint of feeling generally unwell for the last few days. Patient reports that about a week ago she began to experience malaise, body aches, severe fatigue, headache, new bruising. Has remote history of lung cancer and skin cancer. She denies any fever, sweats, chills. No chest pain or shortness of breath. Related Data Allergies Allergy/AdvReac Type Severity Reaction Status Date / Time No Known Drug Allergies Allergy Verified 03/24/24 16:08 Opioid HPI Opioid Management Most Recent Opioid Data: No Data to Display Review of Systems ROS Status of ROS 10 or more systems reviewed and unremarkable except as noted in history and below Exam Narrative Exam Narrative: VITALS: I have reviewed the triage vital signs. GENERAL: Well developed, well appearing adult in no acute distress. NEURO: Alert and oriented. Moves all extremities. Face is symmetric and expressive. EYES: PERRL. No scleral icterus or conjunctival injection. No discharge. HENT: Normocephalic, atraumatic. Hearing is grossly intact. Nares grossly patent and without discharge. Mucous membranes moist. NECK: No JVD. Patient moves neck without restriction. CARDIO: Rhythm regular. Normal rate. No murmur, rub, or gallop. Pulses equal bilaterally in the upper and lower extremity. No lower extremity edema. PULM: Lungs clear to auscultation in all nicholas. No wheezes, rales, or rhonchi. No conversational dyspnea. No splinting, stridor, or accessory muscle use. GI/: Abdomen is soft and non-tender. Normoactive bowel sounds. EXTREMITIES: Symmetric muscle bulk. No joint swelling. No clubbing, cyanosis, or deformity. SKIN: Scattered bruising PSYCH: Mood, affect, and interaction is appropriate to the setting. Constitutional Vital Signs, click to edit/add: Last Vital Signs Temp 98.8 F 03/24/24 16:08 Pulse 92 H 03/24/24 17:19 Resp 22 H 03/24/24 17:19 BP 158/86 H 03/24/24 17:19 Pulse Ox 97 03/24/24 17:19 O2 Del Method Room Air 03/24/24 16:08 Course Vital Signs Vital signs: Vital Signs Temperature 98.8 F 03/24/24 16:08 Pulse Rate 107 H 03/24/24 16:08 Respiratory Rate 18 03/24/24 16:08 Blood Pressure 161/75 H 03/24/24 16:08 Pulse Oximetry 91 L 03/24/24 16:08 Oxygen Delivery Method Room Air 03/24/24 16:08 Temperature 98.8 F 03/24/24 16:08 Pulse Rate 92 H 03/24/24 17:19 Respiratory Rate 22 H 03/24/24 17:19 Blood Pressure 158/86 H 03/24/24 17:19 Pulse Oximetry 97 03/24/24 17:19 Oxygen Delivery Method Room Air 03/24/24 16:08 Medical Decision Making MDM Narrative Medical decision making narrative: 58-year-old female to the emergency department chief complaint of flulike illness. Vital stable, the patient is afebrile. She does have some odd atraumatic bruising about her body. Basic labs to be performed. Zofran, Toradol, fluids ordered for symptoms. BMP without acute abnormality. Her CBC is markedly abnormal however. I did discuss the results with Dr. Sanchez the on-call oncologist via telephone. 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 He recommends transfer to tertiary care. Patient has a preference for [facility] as this is who her previous cancer care in 01/2007 was through. Care was signed out to Dr. Zaragoza with transfer pending. Medical Records Medical records reviewed: Yes I reviewed the patient's medical records Lab Data Lab results reviewed: Yes I reviewed the patient's lab results Labs: Lab Results 03/24/24 03/24/24 03/24/24 Range/Units 16:20 16:30 16:40 WBC 165.1 H* (4.0-11.0) 10^3/uL RBC 3.44 L (4.20-5.40) 10^6/uL Hgb 10.6 L (12.0-16.0) g/dL Hct 30.5 L (36.0-48.0) % MCV 88.7 (81.0-99.0) fL MCH 30.8 (26.7-34.0) pg MCHC 34.8 (29.9-35.2) g/dL RDW 14.0 (11.0-15.0) % Plt Count 27 L* (150-450) 10^3/uL MPV 0.0 L (9.5-13.5) fL Seg Neuts % (Manual) 3.0 L (43.0-75.0) Lymphocytes % (Manual) 6.0 L (20.5-60.0) % Monocytes % (Manual) 5.0 (1.7-12.0) % Eosinophils % (Manual) 0.0 L (0.9-7.0) % Basophils % (Manual) 0.0 L (0.2-2.0) % Blast Cells % (Manual) 86.0 Neutrophils # (Manual) 4.95 (1.4-6.5) 10^3/uL Lymphocytes # (Manual) 9.90 H (1.20-3.80) 10^3/uL Monocytes # (Manual) 8.25 H (0.30-0.80) 10^3/uL Eosinophils # (Manual) 0.00 (0.00-0.70) 10^3/uL Basophils # (Manual) 0.00 (0.00-0.10) 10^3/uL Blast Cells # 141.98 Sodium 134 L (136-145) mmol/L Potassium 3.1 L (3.5-5.1) mmol/L Chloride 96 L (98-107) mmol/L Carbon Dioxide 29.6 (21.0-32.0) mmol/L Anion Gap 11.5 BUN 16.0 (7.0-18.0) mg/dL Creatinine 1.18 H (0.55-1.02) mg/dL Est GFR ( Amer) 57 L (>=60) Est GFR (Non-Af Amer) 47 L (>=60) BUN/Creatinine Ratio 13.6 Glucose 123 H (74-106) mg/dL Calcium 9.2 (8.5-10.1) mg/dL Total Bilirubin 1.6 H (0.2-1.0) mg/dL AST 27 (15-37) U/L ALT 25 (14-59) U/L Alkaline Phosphatase 125 H (46-116) U/L Total Protein 7.6 (6.4-8.2) g/dL Albumin 4.2 (3.4-5.0) g/dL Globulin 3.4 g/dL Albumin/Globulin Ratio 1.2 Urine Color Yellow (YELLOW) Urine Clarity Clear (CLEAR) Urine pH 6.0 (5.0-9.0) Ur Specific [place] >=1.030 A (1.005-1.025) Urine Protein >=300 A (NEG/TRACE) mg/dL Urine Glucose (UA) Negative (NEGATIVE) mg/dL Urine Ketones Trace A (NEGATIVE) mg/dL Urine Occult Blood Moderate A (NEGATIVE) Urine Nitrite Negative (NEGATIVE) Urine Bilirubin Small A (NEGATIVE) Urine Urobilinogen 1.0 (0.2-1.0) EU/dL Ur Leukocyte Esterase Negative (NEGATIVE) Urine RBC 5-10 A (0-2) #/HPF Urine WBC 2-5 A (NONE SEEN) #/HPF Ur Squamous Epith Cells Few A (NONE/RARE) #/LPF Urine Crystals None seen (None Seen) #/HPF Urine Bacteria Small A (NONE SEEN) #/HPF Urine Casts Seen A (NONE SEEN) #/LPF Hyaline Casts Moderate Urine Mucus Trace A (NONE SEEN) Ur Culture Indicated? Yes SARS-CoV-2 Ag (CV2AG) Negative (NEGATIVE) Critical Care Time Critical Care Time Critical Care Time: Yes Total Critical Care Time: 35 Attestation: Critical Care Procedure Note Authorized and Performed by: Yonathan Jimenez DO Total critical care time: 35 min Due to a high probability of clinically significant, life threatening deterioration, the patient required my highest level of preparedness to intervene emergently and I personally spent this critical care time directly and personally managing the patient. This critical care time included obtaining a history; examining the patient; pulse oximetry; ordering and review of studies; arranging urgent treatment with development of a management plan; evaluation of patient's response to treatment; frequent reassessment; and, discussions with other providers. This critical care time was performed to assess and manage the high probability of imminent, life-threatening deterioration that could result in multi-organ failure. It was exclusive of separately billable procedures and treating other patients and teaching time. Please see MDM section and the rest of the note for further information on patient assessment and treatment. Discharge Plan Discharge Chief Complaint: Headache Clinical Impression: AML (acute myeloblastic leukemia) Patient Disposition: Still a Patient Print Language: Croatian Referrals: SANA WAYNE [Primary Care Provider] - 1 week
[2024-03-24 18:15] LABS: Uric Acid 6.3 mg/dL (2.6-6.0)
[2024-03-24] MEDS: ALLOPURINOL 300 MG TABLET PO (20:30)
[2024-03-24 20:43] LABS: INR 1.63; Partial Thromboplastin Time 26.5 sec (22.3-36.2); Prothrombin Time 16.5 sec (9.0-11.6)
[2024-03-24] MEDS: 0.9 % SODIUM CHLORIDE 1,000 ML 100 ML IV (20:51)
[2024-03-24 21:10] LABS: Fibrinogen <50 mg/dL (200-400)
--- NOTE | 2024-03-24 21:30 | ED_ITS ---
HPI HPI - General Adult General Chief complaint: Headache Stated complaint: Flu Like Symptoms Time Seen by Provider: 03/24/24 16:07 Source: patient Mode of arrival: walk-in Limitations: no limitations History of Present Illness HPI narrative: 58-year-old female presents to the emergency department and was initially seen by Dr. Jimenez and signed out to me after discussing the case with him thoroughly. Please see his full history and physical exam. Related Data Allergies Allergy/AdvReac Type Severity Reaction Status Date / Time No Known Drug Allergies Allergy Verified 03/24/24 16:08 Opioid HPI Opioid Management Most Recent Opioid Data: No Data to Display Exam Constitutional Vital Signs, click to edit/add: Last Vital Signs Temp 98.2 F 03/24/24 23:12 Pulse 94 H 03/24/24 23:12 Resp 18 03/24/24 23:12 BP 130/79 03/24/24 23:12 Pulse Ox 92 L 03/24/24 23:12 O2 Del Method Room Air 03/24/24 22:58 Course Vital Signs Vital signs: Vital Signs Temperature 98.8 F 03/24/24 16:08 Pulse Rate 107 H 03/24/24 16:08 Respiratory Rate 18 03/24/24 16:08 Blood Pressure 161/75 H 03/24/24 16:08 Pulse Oximetry 91 L 03/24/24 16:08 Oxygen Delivery Method Room Air 03/24/24 16:08 Temperature 98.2 F 03/24/24 23:12 Pulse Rate 94 H 03/24/24 23:12 Respiratory Rate 18 03/24/24 23:12 Blood Pressure 130/79 03/24/24 23:12 Pulse Oximetry 92 L 03/24/24 23:12 Oxygen Delivery Method Room Air 03/24/24 22:58 Medical Decision Making MDM Narrative Medical decision making narrative: WBC back quite elevated at 165,000. Pathologist called and he is concerned about acute promyelocytic leukemia. Case discussed with Dr. Mccarthy at the [facility] which is the patient's preferred hospital. She recommends that we check a fibrinogen level and it came back at less than 50 and in discussing the case with her again she recommended cryoprecipitate be given. The patient was also given allopurinol 300 mg by mouth and blood cultures were obtained and the patient was given IV fluids. Our intention was to give Atra but that medication is not available here at this hospital. [facility] did not have any beds and neither did [facility]. I spoke to oncologist, Dr. Molina, at [facility] and they were unable to accommodate this patient. I have spoken to Dr. Rosales, oncologist, at [facility] who accepts the patient and requests that we send the patient from our emergency department to their emergency department. The patient is stable and agreeable for transfer. Differential Diagnosis Differential Diagnosis: Anemia, acute kidney injury, blood dyscrasia, COVID Lab Data Lab results reviewed: Yes I reviewed the patient's lab results Labs: Lab Results 03/24/24 03/24/24 03/24/24 Range/Units 16:20 16:30 16:40 WBC 165.1 H* (4.0-11.0) 10^3/uL RBC 3.44 L (4.20-5.40) 10^6/uL Hgb 10.6 L (12.0-16.0) g/dL Hct 30.5 L (36.0-48.0) % MCV 88.7 (81.0-99.0) fL MCH 30.8 (26.7-34.0) pg MCHC 34.8 (29.9-35.2) g/dL RDW 14.0 (11.0-15.0) % Plt Count 27 L* (150-450) 10^3/uL MPV 0.0 L (9.5-13.5) fL Seg Neuts % (Manual) 3.0 L (43.0-75.0) Lymphocytes % (Manual) 6.0 L (20.5-60.0) % Monocytes % (Manual) 5.0 (1.7-12.0) % Eosinophils % (Manual) 0.0 L (0.9-7.0) % Basophils % (Manual) 0.0 L (0.2-2.0) % Blast Cells % (Manual) 86.0 Neutrophils # (Manual) 4.95 (1.4-6.5) 10^3/uL Lymphocytes # (Manual) 9.90 H (1.20-3.80) 10^3/uL Monocytes # (Manual) 8.25 H (0.30-0.80) 10^3/uL Eosinophils # (Manual) 0.00 (0.00-0.70) 10^3/uL Basophils # (Manual) 0.00 (0.00-0.10) 10^3/uL Blast Cells # 141.98 PT 16.5 H (9.0-11.6) sec INR 1.63 APTT 26.5 (22.3-36.2) sec Fibrinogen <50 L (200-400) mg/dL Sodium 134 L (136-145) mmol/L Potassium 3.1 L (3.5-5.1) mmol/L Chloride 96 L (98-107) mmol/L Carbon Dioxide 29.6 (21.0-32.0) mmol/L Anion Gap 11.5 BUN 16.0 (7.0-18.0) mg/dL Creatinine 1.18 H (0.55-1.02) mg/dL Est GFR ( Amer) 57 L (>=60) Est GFR (Non-Af Amer) 47 L (>=60) BUN/Creatinine Ratio 13.6 Glucose 123 H (74-106) mg/dL Uric Acid 6.3 H (2.6-6.0) mg/dL Calcium 9.2 (8.5-10.1) mg/dL Total Bilirubin 1.6 H (0.2-1.0) mg/dL AST 27 (15-37) U/L ALT 25 (14-59) U/L Alkaline Phosphatase 125 H (46-116) U/L Lactate Dehydrogenase 1233 H (81-234) U/L Total Protein 7.6 (6.4-8.2) g/dL Albumin 4.2 (3.4-5.0) g/dL Globulin 3.4 g/dL Albumin/Globulin Ratio 1.2 Urine Color Yellow (YELLOW) Urine Clarity Clear (CLEAR) Urine pH 6.0 (5.0-9.0) Ur Specific [place] >=1.030 A (1.005-1.025) Urine Protein >=300 A (NEG/TRACE) mg/dL Urine Glucose (UA) Negative (NEGATIVE) mg/dL Urine Ketones Trace A (NEGATIVE) mg/dL Urine Occult Blood Moderate A (NEGATIVE) Urine Nitrite Negative (NEGATIVE) Urine Bilirubin Small A (NEGATIVE) Urine Urobilinogen 1.0 (0.2-1.0) EU/dL Ur Leukocyte Esterase Negative (NEGATIVE) Urine RBC 5-10 A (0-2) #/HPF Urine WBC 2-5 A (NONE SEEN) #/HPF Ur Squamous Epith Cells Few A (NONE/RARE) #/LPF Urine Crystals None seen (None Seen) #/HPF Urine Bacteria Small A (NONE SEEN) #/HPF Urine Casts Seen A (NONE SEEN) #/LPF Hyaline Casts Moderate Urine Mucus Trace A (NONE SEEN) Ur Culture Indicated? Yes SARS-CoV-2 Ag (CV2AG) Negative (NEGATIVE) Blood Type B Positive Imaging Data Chest x-ray: Radiologist's impression: ITS Impressions Chest X-Ray 03/24/24 16:20 IMPRESSION: Stable chest x-ray without new or acute appearing abnormality. Electronically authenticated by: RUBEN ALONZO Date: 03/24/2024 17:[address] 03/24/24 21:45 IMPRESSION: 1. No acute intracranial abnormality. No hemorrhage or mass effect. 2. Subtle nonspecific low-density in the white matter. Electronically authenticated by: ELLIOTT ISLVERMAN Date: 03/24/2024 22:32 Critical Care Time Critical Care Time Critical Care Time: Yes Total Critical Care Time: 120 Attestation: Due to the high probability of sudden and clinically significant deterioration in the patient's condition he/she required the highest level of my preparedness to intervene urgently I provided critical care time including documentation time, medication orders and management, reevaluation, vital sign assessment, ordering and reviewing of lab tests, ordering and reviewing of x-ray studies, and admission orders. Aggregate critical care time is 120 minutes including only time during which I was engaged in work directly related to his/her care and did not include time spent treating other patients simultaneously. Discharge Plan Discharge Chief Complaint: Headache Clinical Impression: AML (acute myeloblastic leukemia) Patient Disposition: [facility] Time of Disposition Decision: 23:33 Discharge location: [facility] Condition: Fair Mode of Transportation: EMS
--- NOTE | 2024-03-24 21:45 | CT_ITS ---
The [address] [address] Patient Name: JANIE GARCIA MRN: [id number] date: 1965 Sex: F Assigned Patient Location: ER Current Patient Location: ER Accession/Order Number: [id number] Exam Date: 03/24/2024 22:00 Report Date: 03/24/2024 22:32 At the request of: THOM ORTIZ Procedure: CT head/brain wo con EXAM: CT head/brain wo con HISTORY: MORALES, low platelet count, new onset leukemia INDICATION: 58 years old; Female. TECHNIQUE: CT Head (ax/cor/sag reformats). Ionizing radiation dose reduced via iterative reconstruction/FBP blend and body size kV/mA adjustment. Comparison: None FINDINGS: POSTOPERATIVE CHANGES: None. BRAIN PARENCHYMA: No intraparenchymal or extra-axial hemorrhage. No mass effect. No midline shift or herniation. There are symmetric CSF densities in the lentiform nuclei bilaterally. There is no associated mass effect in the appearance is most consistent with dilated perivascular spaces. Subtle nonspecific low-density is seen within the subcortical white matter. There is no associated mass effect. VENTRICLES/EXTRA-AXIAL SPACES: Normal for patient's age. SINUSES/MASTOIDS: The sinuses are clear although the paranasal sinuses are not completely included in the examination. Mastoids and middle ears are clear. MSK: No displaced or depressed calvarial fracture is present. OTHER: No hyperdense intraluminal thrombus is seen. CT/CT head/brain wo con IMPRESSION: 1. No acute intracranial abnormality. No hemorrhage or mass effect. 2. Subtle nonspecific low-density in the white matter. Electronically authenticated by: ELLIOTT SILVERMAN Date: 03/24/2024 22:32
[2024-03-25] VITALS (20 sets, daily range): BP systolic 121–138; BP diastolic 60–79; PULSE 84–108; O2SAT 88–100
[2024-03-25] MEDS: 0.9 % SODIUM CHLORIDE 250 ML IV (02:20)
[2024-03-25 03:18] LABS: Basophils Absolute Auto 0.1 10^3/uL (0.0-0.1); Basophils Percent Auto 0.1 % (0.2-2.0); Hemoglobin 8.2 g/dL (12.0-16.0); Immature Granulocytes Abs Auto 4.01 10^3/uL (0.00-0.03); Immature Granulocytes Pct Auto 2.6 % (0.0-0.5); Lymphocytes Absolute Auto 6.8 10^3/uL (1.2-3.8); Lymphocytes Percent Auto 4.4 % (20.5-60.0); Mean Corpuscular HGB Conc 35.3 g/dL (29.9-35.2); Mean Corpuscular Hemoglobin 31.1 pg (26.7-34.0); Mean Corpuscular Volume 87.9 fL (81.0-99.0); Monocytes Absolute Auto 140.2 10^3/uL (0.3-0.8); Monocytes Percent Auto 89.6 % (1.7-12.0); Neutrophils Absolute Auto 5.4 10^3/uL (1.4-6.5); Neutrophils Percent Auto 3.3 % (43.0-75.0); Red Blood Count 2.64 10^6/uL (4.20-5.40); Red Cell Distribution Width 14.4 % (11.0-15.0)
[2024-03-25 03:29] LABS: Magnesium 1.7 mg/dL (1.8-2.4); Phosphorus 2.9 mg/dL (2.6-4.7); Uric Acid 5.6 mg/dL (2.6-6.0)
[2024-03-25 03:31] LABS: Fibrinogen 106 mg/dL (200-400)
[2024-03-25 03:34] LABS: Hematocrit 23.2 % (36.0-48.0); INR 1.56; Partial Thromboplastin Time 27.1 sec (22.3-36.2); Platelet Count 17 10^3/uL (150-450); Prothrombin Time 15.8 sec (9.0-11.6); White Blood Count 156.5 10^3/uL (4.0-11.0)
[2024-03-25] MEDS: MAGNESIUM OXIDE 400 MG TABLET 800 MG PO (03:53)
[2024-03-25] MEDS: PHYTONADIONE (VIT K1) 10 MG/ML AMPUL 5 MG PO (03:53)
[2024-03-25] MEDS: HYDROXYUREA 500 MG CAPSULE 2000 MG PO (04:26)
[2024-03-25] MEDS: ONDANSETRON PF 4 MG/2 ML VIAL IV ×2 (04:29→07:35)
[2024-03-25] MEDS: MORPHINE SULFATE 4 MG/ML VIAL IV ×2 (04:31→07:34)
[2024-03-25] MEDS: 0.9 % SODIUM CHLORIDE 1,000 ML 100 ML IV (07:34)
--- NOTE | 2024-03-25 08:42 | PC.NURSE ---
Tried to call report to [facility] with 2 separate attempts. Was put on hold for over 10 minutes without even talking to an shrimp peeling machine operator. Tried main number with same results.
== END 2024-03-25 08:36 | disposition short-term general hospital (02) ==
PROVIDERS: Student in an Organized Health Care Education/Training Program; Emergency Provider Emergency Medicine; PCP Family Medicine
DX: C92.00 Acute myeloblastic leukemia, not having achieved remission (principal); Z85.118 Personal history of other malignant neoplasm of bronchus and lung; Z85.828 Personal history of other malignant neoplasm of skin; Z20.822 Contact with and (suspected) exposure to COVID-19
CPT/HCPCS: 36415; 70450; 71046; 80053; 81001; 83615; 83735; 84100; 84550; 85007; 85025; 85027; 85384; 85610; 85730; 86900; 86901; 87040; 87086; 87811; 93005; 96374; 96375; 96376; 99285; J1885; J2270; J2405; J3430; P9012

== ENCOUNTER 2024-07-17 19:40 | Outpatient (REF) | payer OTHER, SELFPAY | END 2024-07-17 19:41 | disposition home or self-care (01) | LOC: LAB 19:40 | PROVIDERS: PCP Family Medicine; Visit Provider Physician Assistant | DX: Z01.419 Encounter for gynecological examination (general) (routine) without abnormal findings (principal); Z97.10 Presence of artificial limb (complete) (partial), unspecified | CPT/HCPCS: 87624; 88175 ==

== ENCOUNTER 2024-07-24 14:29 | Outpatient (OUT) | payer OTHER, SELFPAY ==
--- NOTE | 2024-07-24 14:35 | US_ITS ---
[address] [address] Patient Name: JANIE GARCIA MRN: [id number] date: 1965 Sex: F Assigned Patient Location: [facility] Current Patient Location: [facility] Accession/Order Number: [id number] Exam Date: 07/24/2024 14:31 Report Date: 07/24/2024 15:43 At the request of: RHIANNON JOHNSON Procedure: US pelvis w/ transvaginal EXAM: US pelvis w/ transvaginal HISTORY: PELVIC PAIN COMPARISON: None. TECHNIQUE: Real-time transvaginal imaging of the pelvis. Findings: The uterus is surgically absent. The bilateral ovaries are not visualized due to overlying bowel gas. Impression 1. Surgically absent uterus. Electronically authenticated by: PORTILLO BROWN Date: 07/24/2024 15:43
== END 2024-07-24 14:30 | disposition home or self-care (01) ==
LOC: NOMS 14:29
PROVIDERS: PCP Family Medicine; Visit Provider Obstetrics & Gynecology
DX: N94.89 Other specified conditions associated with female genital organs and menstrual cycle (principal)
CPT/HCPCS: 76830; 76856

== ENCOUNTER 2024-11-28 09:00 | Outpatient (RCR) | payer OTHER, SELFPAY | END 2024-12-18 07:00 | disposition home or self-care (01) | LOC: PT 09:00 | PROVIDERS: PCP Family Medicine | DX: M62.81 Muscle weakness (generalized) (principal); S43.421D Sprain of right rotator cuff capsule, subsequent encounter | CPT/HCPCS: 97110; 97112; 97163 ==

== ENCOUNTER 2025-03-13 08:09 | Emergency (ER) | payer BC, SELFPAY ==
--- OUTSIDE RECORDS SUMMARY | 2025-03-05 08:15 | XMS_ITS | Encounter Summary ---
Author Organization [facility] Address [address] [place] [address] Care Team Providers Care Brand Specialist Name Role Phone House Sr., Mike SANCHEZ Primary Care Provider + July Renee ENGINE SPECIALIST.TECHNICAL WRITING LEAD/MGR Unavailable [phone] Stephanie Carter RN Unavailable [phone] Sofia Lay TELEPHOTO INSTALLER Unavailable Unavailable Opal Barbosa RN Unavailable Unavailable Source Comments In the event this information is protected by the Federal Confidentiality of Alcohol and Drug AbusePatient Records regulations: The Federal rules restrict any use of the information to criminally investigate or prosecute any alcohol or drug abuse patient.[facility] Reason for Visit * Reason Comments Corneal evaluation * Consult, Test, Treat (Routine) - Closed Specialty Diagnoses / Procedures Referred By Martha t Referred To Contact Ophthalmology Diagnoses 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) Procedures CONSULT TO OPHTHALMOLOGY OFFICE/OUTPATIENT [facility] [place] [address] [place] [address] Phone: tel: fax: Referral ID Status Reason Start Date Expiration Date V isits Requested Visits Authorized [id number] Closed PCP Requested Referral 11/12/2024 11/12/2025 1 1 Encounter Details Date Type Department Care Team (Latest Contact Info) Description 03/05/2025 8:15 AM EDT Office Visit [facility] Ophthalmology [address] [address] Juventino Abad MD [address] [place] [address] Diagnostics, [facility] [address], [place] [id number] Retinal pigment epithelium tear, right eye (Primary Dx); 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); Corneal scar; Age-related nuclear cataract of both eyes Social History Tobacco Use Types Packs/Day Years Used Date Smoking Tobacco: Former Cigarettes 1 20.4 0 08/07/1988 - 01/05/2009 Smokeless Tobacco: Never Alcohol Use Standard Drinks/Week Comments No 0 (1 standard drink = 0.6 oz pur e alcohol) PHQ-2 Answer Date Recorded PHQ-2 score 0 11/12/2024 Area Deprivation Index Answer Date Christian rded National Score (1-100), lower number is lower ri sk 91 03/21/2023 State Score (1-10), lower number is lower risk 9 03/21/2023 Data from: https://www.neighborhoodatlas.medicine.[facility].edu/. Last address used for calculation [address] 03/21/2023 Comments No Sex and Gender Information Value Date Recorded Sex Assigned at Not on file Legal Sex Female 8:59 AM EST Gender Identity Not on file Sexual Orientation Not on file documented as of this encounter Functional Status * Are you deaf or do you have serious difficulty hearing? Answer Date of Assessment Author No 01/16/2015 9:22 AM EDT Tono Horn * Are you blind or do you have serious difficulty seeing, even when wearing glasses? Answer Date of Assessment Author No 01/16/2015 9:22 AM EDT Tono Horn * Do you have serious difficulty walking or climbing stairs? Answer Date of Assessment Author No 01/16/2015 9:22 AM Tono Garcia * Do you have difficulty dressing or bathing? Answer Date of Assessment Author No 01/16/2015 9:22 AM Tono Garcia * Because of a physical, mental, or emotional condition, do you have difficulty doing errands alone such as visiting a doctor's office or shopping? Answer Date of Assessment Author No 01/16/2015 9:22 AM Tono Garcia documented as of this encounter Mental Status * Because of a physical, mental, or emotional condition, do you have serious difficulty concentrating, remembering, or making decisions? Answer Entry Date Author No 01/16/2015 9:22 AM Tono Garcia documented in this encounter Patient Instructions * Patient Instructions* Juventino Abad MD - 03/05/2025 10:47 AM EDT We discussed your vision changes in the right eye: - You have a change in the retina in an area called the macula in your right eye. This is likely due to the bleeding you experienced behind the eye during your leukemia treatment last March. Some ofthe light-sensing cells in this area have been disrupted, which is causing the distortion and waviness in your vision. - Based on the imaging and examination, this area has healed as much as it likely will, and furtherimprovement is unlikely. The condition is not expected to worsen, but it is important to monitor for any changes. - There is no surgical or medical treatment available to restore the damaged cells in the macula. However, we will continue to monitor your condition to ensure it does not progress. - If you notice a significant worsening of your vision, please call our office immediately to schedule an appointment. We discussed follow-up care: - I recommend repeating the imaging test of your retina in 6 months to 1 year to monitor for any changes. Please contact our office to schedule this when the time comes. - You have a mild cataract in both eyes. While it is not currently severe, cataracts can worsen over time. Cataract surgery may be an option in the future if they begin to significantly affect your vision. Please let us know if you have any additional questions or concerns. documented in this encounter Progress Notes * Juventino Abad MD - 03/05/2025 10:43 AM EDT The patient presents for evaluation of corneal and visual changes. She reports a history of a hemorrhage behind OD in March of last year, which occurred while she was hospitalized for leukemia. The hemorrhage has since resolved, but she now experiences visual distortion in OD. She describes straight lines appearing with indentations and words not coming in clearly. She expresses uncertainty about her ability to rely solely on OD for vision. She is a regular wearer of soft contact lenses. 1. 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 This disruption is causing visual distortion and is unlikely to improve significantly as most healing has already occurred. - Monitor for any changes in vision; advised patient to report any worsening immediately. - Repeat OCT imaging in 6-12 months to ensure stability. 2. 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 Currently in remission. 3. Corneal scar (H17.9) No significant findings on corneal examination that would contribute to current visual symptoms. 4. Age-related nuclear cataract of both eyes (H25.13) Mild nuclear cataracts observed in both eyes, not significantly impacting vision at this time. - Monitor progression of cataracts; surgical intervention may be considered in the future if visionis affected. She was referred by a Dr. In [place], Dr Chaves I have confirmed and edited as necessary the relevant ophthalmic history, ROS, and the neuro exam findings as obtained by others. I have seen and examined Aminta Fallon. I have discussed the case and the management of this patient's care with the Resident/Fellow, if applicable. I also have reviewed and agree with the assessment and plan as stated above and agree withall of its relevant components. Recording using ambient [employer] software for draft documentation of the visit was discussed with the patient/authorized food service sales representatives; all questions welcomed and answered. Patient/authorized food service sales representatives agreed to proceed Juventino Abad MD documented in this encounter Plan of Treatment Upcoming Encounters Date Type Department Care Team (Latest Contact Info) Description 04/03/2025 2:00 PM EDT Results Only Main [place] [address] [address] [place] [address] labs - no longer has port 04/03/2025 3:00 PM EDT Visit (SP) Office Hematology/Oncology [address] [place] [address] [place] [address] [place] [address] C92.41 07/08/2025 10:15 AM EST Appointment Radiology Pet CT [address] [place] [place] [address] CT CHEST WO IV 07/14/2025 11:00 AM EST Visit (SP) Office Hematology/Oncology [address] [place] [address] [place] [address] Ignacio Anderson MD [address] [place] [place] [address] 6 MONTH FOLLOW UP AFTER CT SCAN documented as of this encounter Procedures Procedure Name Priority Date/Time Associated Diagnosis Comments OCT MACULA CIRRUS OU (BOTH EYES) Routine 03/05/2025 10:28 AM EDT Retinal pigment epithelium tear, right eye OCT ANTERIOR SEGMENT SPECIAL ORDER Routine 03/05/2025 9:19 AM EDT Corneal scar CORNEAL TOPOGRAPHY PENTACAM OU (BOTH EYES) Routine 03/05/2025 8:44 AM EDT 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 Energy Analyst Information Protohistorian: YVONNE. OCT Macula Interpretation Right Eye Abnormal foveal contour. Findings include RPE Irregularity, Atrophy. Left Eye Normal without fluid. Interval Change Right Eye Initial. Left Eye Initial. Result Thierry Abad MD OPHTHALMOLOGY Final Result * OCT ANTERIOR SEGMENT SPECIAL ORDER (03/05/2025 9:19 AM EDT) Anatomical Region Laterality Modality Other Narrative 03/05/2025 10:51 AM EDT Date of Procedure 03/05/2025. Energy Analyst Information Protohistorian: YVONNE. Notes Few superficial scars left cornea us Juventino Abad MD OPHTHALMOLOGY Final Result * CORNEAL TOPOGRAPHY PENTACAM OU (BOTH EYES) (03/05/2025 8:44 AM EDT) Anatomical Region Laterality Modality Other Narrative 03/05/2025 10:51 AM EDT Date of Procedure 03/05/2025. Energy Analyst Information Protohistorian: Stop time: 8:43 AM. Astigmatism Right Eye Regular. Left Eye Regular. Interval Change Right Eye Intial . Left Eye Intial . 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) Acute myeloid leukemia in remission Corneal scar Corneal opacity, unspecified Age-related nuclear cataract of both eyes Senile nuclear sclerosis documented in this encounter Administered Medications Inactive Administered Medications - up to 3 most recent administrations Medication Order MAR Action Action Date Dose Rate Site PHENYLephrine 2.5 % 1 drop (AK-DILATE, BRAIN-SYNEPHRINE) 1 drop, BOTH EYES, DIRECTED, Starting on Mon03/05/25 at 0830, Until Mon03/05/25 at 2028, Administer for dilation PROTECT FROM LIGHTIndications: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),Corneal scar Given 03/05/2025 8:44 AM EDT 1 drop documented in this encounter Care Teams Brand Specialist Relationship Specialty Start Date End Date Mike Moya Sr., PCP - General Family Medicine 01/09/15 July Renee APRN.TECHNICAL WRITING LEAD/MGR [address] [place] [address] Nurse Practitioner Hematology/Oncology 05/16/24 Stephanie Carter, UCHE [address] [place] [address] Specialty Movable Bulkhead Installer Hematology/Oncology 05/16/24 Sofia Lay LSW Weight Engineer 06/20/24 Opal Barbosa, RN Specialty Movable Bulkhead Installer Hematology/Oncology 11/10/24 documented as of this encounter
[2025-03-13] VITALS (37 sets, daily range): BP systolic 118–170; BP diastolic 66–86; PULSE 62–92; TEMP 36.5; O2SAT 95–100; BMI 27.4
--- OUTSIDE RECORDS SUMMARY | 2025-03-13 08:25 | XMS_ITS | Encounter Summary ---
Author Organization [facility] Address [address] [place] [address] Care Team Providers Care Screener And Blender Operator Name Role Phone House Sr., Mike SANCHEZ Primary Care Provider + Bernard Garrett MD Unavailable Unavail able July Renee SOAKING PIT OPERATOR.PRESCHOOL ASSISTANT Unavailable [phone] Stephanie Carter RN Unavailable [phone] Sofia Lay Unavailable Unavailable Opal Barbosa RN Unavailable Unavailable Source Comments In the event this information is protected by the Federal Confidentiality of Alcohol and Drug AbusePatient Records regulations: The Federal rules restrict any use of the information to criminally investigate or prosecute any alcohol or drug abuse patient.[facility] Reason for Visit * Reason Comments Refill Request Encounter Details Date Type Department Care Team (Late st Contact Info) Description 01/07/2025 Refill Hematology/Oncology [address] [place] [address] [place] [address] [place] [id number] Refill Request Social History Tobacco Use Types Packs/Day Years [...] is lower risk 9 03/21/2023 Data from: https://www.neighborhoodatlas.[facility].edu/. Last address used for calculation [address] [...] No 01/16/2015 9:22 AM Tono Garcia * Are you blind or do you have serious difficulty seeing, even when wearing glasses? Answer Date of Assessment Author No 01/16/2015 9:22 AM Tono Garcia * Do you have serious difficulty walking [...] AM Tono Garcia documented in this encounter Plan of Treatment Upcoming Encounters Date Type Department Care Team (Latest Contact Info) Description 04/03/2025 2:00 PM EDT Results Only Main [place] [address] [address] [place] [address] labs - no longer has port 04/03/2025 3:00 PM EDT Visit (SP) Office Hematology/Oncology [address] [place] [address] [place] [address] [place] [address] C92.41 07/08/2025 10:15 AM EST Appointment Radiology Pet CT [address] [place] [address] [place] [address] CT CHEST WO IV 07/14/2025 11:00 AM EST Visit (SP) Office Hematology/Oncology [address] [place] [address] [place] [address] Ignacio Anderson MD [address] [place] [address] [place] [address] 6 MONTH FOLLOW UP AFTER CT SCAN documented as of this encounter Visit Diagnoses Diagnosis 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 [facility] [place] [address] Specialty Donor Relations Manager Hematology/Oncology 05/16/24 Sofia Lay LSW Claim Specialist 06/20/24 Opal Barbosa, UCHE Specialty Donor Relations Manager Hematology/Oncology 11/10/24 documented as of this encounter
--- OUTSIDE RECORDS SUMMARY | 2025-03-13 08:25 | XMS_ITS ---
Author Organization [facility] Address [address] [place] [address] Care Team Providers Care Supervisor Filter Assembly Name Role Phone House Sr., Mike SANCHEZ Primary Care Provider + July Renee CAROUSEL ATTENDANT.BIOMATERIALS ENGINEER Unavailable [phone] Stephanie Carter RN Unavailable [phone] Sofia Lay AIR CONDITIONING TECHNICIAN Unavailable Unavailable Opal Barbosa RN Unavailable Unavailable Active Problems Problem Noted Date Diagnosed Date Red blood cell antibody positive 06/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 Treatment Complete July Renee, CAROUSEL ATTENDANT.BIOMATERIALS ENGINEER 1 of 1 cycle started
--- OUTSIDE RECORDS SUMMARY | 2025-03-13 08:25 | XMS_ITS | Encounter Summary ---
Author Organization [facility] Address [address] [place] [address] Care Team Providers Care Armament Aircraft Mechanic Name Role Phone House Sr., Mike SANCHEZ Primary Care Provider + Bernard Garrett MD Unavailable Unavail able July Renee ELECTROCARDIOGRAPH REPAIRER.DINKER Unavailable [phone] Stephanie Carter RN Unavailable [phone] Sofia Lay Unavailable Unavailable Opal Barbosa RN Unavailable Unavailable Source Comments In the event this information is protected by the Federal Confidentiality of Alcohol and Drug AbusePatient Records regulations: The Federal rules restrict any use of the information to criminally investigate or prosecute any alcohol or drug abuse patient.[facility] Encounter Details Date Type Department Care Team (Late st Contact Info) Description 08/06/2024 Get Medical Advice Hematology/Oncology [address] [place] [address] [place] [address] [place] [address] Medical leave Social History Tobacco Use Types Packs/Day Years Used Date Smoking Tobacco: Former Cigarettes 1 20.4 0 08/07/1988 - 01/05/2009 Smokeless Tobacco: Never Alcohol Use Standard Drinks/Week Comments No 0 (1 standard drink = 0.6 oz pur e alcohol) PHQ-2 Answer Date Recorded PHQ-2 score 0 05/02/2024 Area Deprivation Index Answer Date Christian rded National Score (1-100), lower number is lower ri sk 91 03/21/2023 State Score (1-10), lower number is lower risk 9 03/21/2023 Data from: https://www.neighborhoodatlas.[facility]/. Last address used for calculation [address] [...] 04/03/2025 2:00 PM EDT Results Only Main [place] [address] [address] [place] [address] labs - no longer has port 04/03/2025 3:00 PM EDT Visit (SP) Office Hematology/Oncology [address] [place] [address] [place] [address] [place] [address] C92.41 07/08/2025 10:15 AM EST Appointment Radiology Pet CT [address] [place] [address] CT CHEST WO IV 07/14/2025 11:00 AM EST Visit (SP) Office Hematology/Oncology [address] [place] [address] [place] [address] Ignacio Anderson MD [address] [place] [address] 6 MON[address] FOLLOW UP AFTER CT SCAN documented as of this encounter Visit Diagnoses Not on filedocumented in this encounter Care Teams Armament Aircraft Mechanic Relationship Specialty Start Date End Date Mike Moya Sr., DO PCP - General Family Medicine 01/09/15 Bernard Garrett MD Physician Hematology/Oncology 05/16/24 02/07/25 July Renee, ELECTROCARDIOGRAPH REPAIRER.DINKER [address] [place] [address] [place] [address] Nurse Practitioner Hematology/Oncology 05/16/24 Stephanie Carter, UCHE [address] [place] [address] [place] [address] Specialty Filling Station Attendant Hematology/Oncology 05/16/24 Sofia Lay LSW Weaver Apprentice 06/20/24 Opal Barbosa, RN Specialty Filling Station Attendant Hematology/Oncology 11/10/24 documented as of this encounter
--- OUTSIDE RECORDS SUMMARY | 2025-03-13 08:25 | XMS_ITS | Encounter Summary ---
Author Organization [facility] Address [facility] [place] [address] Care Team Providers Care High School Academic Coach Name Role Phone House Sr., Mike SANCHEZ Primary Care Provider + Bernard Garrett MD Unavailable Unavail able July Renee RETAIL PERSONAL BANKER.DISTRICT COURT ADMINISTRATOR Unavailable [phone] Stephanie Carter RN Unavailable [phone] Sofia Lay Unavailable Unavailable Opal Barbosa RN Unavailable Unavailable Source Comments In the event this information is protected by the Federal Confidentiality of Alcohol and Drug AbusePatient Records regulations: The Federal rules restrict any use of the information to criminally investigate or prosecute any alcohol or drug abuse patient.[facility] Encounter Details Date Type Department Care Team (Late st Contact Info) Description 06/28/2024 Patient Msg Hematology/Oncology [address] [place] [address] Opal Barbosa, RN Social History Tobacco Use Types Packs/Day Years [...] is lower risk 9 03/21/2023 Data from: https://www.neighborhoodatlas.medicine.[facility]/. Last address used for calculation [address] [...] 04/03/2025 2:00 PM EDT Results Only Main [place] [address] [address] [place] [address] labs - no longer has port 04/03/2025 3:00 PM EDT Visit (SP) Office Hematology/Oncology [address] [place] [address] [place] [address] [place] [address] C92.41 07/08/2025 10:15 AM EST Appointment Radiology Pet CT [address] [facility] [place] [address] CT CHEST WO IV 07/14/2025 11:00 AM EST Visit (SP) Office Hematology/Oncology [address] [place] [address] [place] [address] Ignacio Anderson MD [address] [place] [address] 6 MONTH FOLLOW UP AFTER CT SCAN documented as of this encounter Visit Diagnoses Not on filedocumented in this encounter Care Teams High School Academic Coach Relationship Specialty Start Date End Date Mike Moya Sr., PCP - General Family Medicine 01/09/15 Bernard Garrett MD Physician Hematology/Oncology 05/16/24 02/07/[address] ADMINISTRATOR [address] [place] [address] [place] [address] Nurse Practitioner Hematology/Oncology 05/16/24 Stephanie Carter, UCHE [address] [place] [address] [place] [address] Specialty X Ray Developing Machine Operator Hematology/Oncology 05/16/24 Sofia Lay LSW Paint Mixer 06/20/24 Opal Barbosa, UCHE Specialty X Ray Developing Machine Operator Hematology/Oncology 11/10/24 documented as of this encounter
--- OUTSIDE RECORDS SUMMARY | 2025-03-13 08:25 | XMS_ITS | Encounter Summary ---
Author Organization [facility] Address [address] [place] [address] Care Team Providers Care Reading Interventionist Name Role Phone House Sr., Mike SANCHEZ Primary Care Provider + Bernard Garrett MD Unavailable Unavail able July Renee AIR CONTROL/ANTI AIR WARFARE OFFICER.BROILER SUPERVISOR Unavailable [phone] Stephanie Carter RN Unavailable [phone] Sofia Lay Unavailable Unavailable Opal Barbosa RN Unavailable Unavailable Source Comments In the event this information is protected by the Federal Confidentiality of Alcohol and Drug AbusePatient Records regulations: The Federal rules restrict any use of the information to criminally investigate or prosecute any alcohol or drug abuse patient.[facility] Encounter Details Date Type Department Care Team (Late st Contact Info) Description 06/28/2024 Get Medical Advice Hematology/Oncology [address] [place] [address] [place] [address] [place] [address] Arsenic Appt-jul Social History Tobacco Use Types Packs/Day Years [...] is lower risk 9 03/21/2023 Data from: https://www.neighborhoodatlas.medicine.[facility]/. Last address used for calculation [address] [...] 04/03/2025 2:00 PM EDT Results Only Main [place] [address] [place] [address] labs - no longer has port 04/03/2025 3:00 PM EDT Visit (SP) Office Hematology/Oncology [address] [place] [address] [place] [address] [facility] [address] [id number] 07/08/2025 10:15 AM EST Appointment Radiology Pet CT [address] [facility] [place] [address] CT CHEST WO IV 07/14/2025 11:00 AM EST Visit (SP) Office Hematology/Oncology [address] [place] [address] [place] [address] Ignacio Anderson MD [address] [facility] [place] [address] [address] FOLLOW UP AFTER CT SCAN documented as of this encounter Visit Diagnoses Not on filedocumented in this encounter Care Teams Reading Interventionist Relationship Specialty Start Date End Date Mike Moya Sr., PCP - General Family Medicine 01/09/15 Bernard Garrett MD Physician Hematology/Oncology 05/16/24 02/07/25 July Renee, DAWNA.BROILER SUPERVISOR [address] [place] [address] [place] [address] Nurse Practitioner Hematology/Oncology 05/16/24 Stephanie Carter, UCHE [address] [place] [address] [place] [address] Specialty Director Content Marketing Hematology/Oncology 05/16/24 Sofia Lay LSW Plate Gauger 06/20/24 Opal Barbosa, RN Specialty Director Content Marketing Hematology/Oncology 11/10/24 documented as of this encounter
--- OUTSIDE RECORDS SUMMARY | 2025-03-13 08:26 | XMS_ITS | Encounter Summary ---
Author Organization [facility] Address [address] [place] [address] Care Team Providers Care Grapple Crew Leader Name Role Phone Mike Moya MD Primary Care Provider [phone] Encounter Details Date Type Department Care Team (Late st Contact Info) Description 07/24/2024 Clinisync Result Encounter [facility] External Department Unsolicited Rhiannon Chairez, DO [address] [facility] [place] [address] Social History Tobacco Use Types Packs/Day Years Used Date Smoking Tobacco: Former Cigarettes 1 10 Smokeless Tobacco: Never Alcohol Use Standard Drinks/Week Comments Never 0 (1 standard drink = 0.6 oz pure alcohol) caffeine intake: 3-4 cups per day Comments Unknown Sex and Gender Information Value Date Recorded Sex Assigned at Female 10/09/2023 12:30 PM EST Legal Sex Female 6:48 PM EDT Gender Identity Female 10/09/2023 12:30 PM EST Sexual Orientation Straight 10/09/2023 12 :30 PM EST documented as of this encounter Plan of Treatment Not on file documented as of this encounter Procedures Procedure Name Priority Date/Time Associated Diagnosis Comments US PELVIS W/ TRANSVAGINAL 07/24/2024 3:43 PM EST documented in this encounter Results * US PELVIS W/ TRANSVAGINAL (07/24/2024 3:43 PM EST) Anatomical Region Laterality Modality Other 07/24/2024 3:43 PM EST Narrative 07/24/2024 3:45 [place] [address] Ultrasound Report Signed Patient: AMINTA GARCIA MR#: [id number] : 1965 Acct:[id number] Age/Sex: 58 / F ADM Date: 07/24/24 Loc: [facility] Attending Dr: Rhiannon Chairez D.O. Ordering Physician: Rhiannon Chairez D.O. Date of Service: 07/24/24 Procedure(s): US pelvis w/ transvaginal Accession Number(s): [id number] cc: Rhiannon Chairez D.O.; MIKE MOYA [place] [address] Patient Name: AMINTA GARCIA MRN: [id number] date: 1965 Sex: F Assigned Patient Location: [facility] Current Patient Location: [facility] Accession/Order Number: [id number] Exam Date: 07/24/2024 14:31 Report Date: 07/24/2024 15:43 At the request of: RHIANNON CHAIREZ Procedure: US pelvis w/ transvaginal EXAM: US pelvis w/ transvaginal HISTORY: PELVIC PAIN COMPARISON: None. TECHNIQUE: Real-time transvaginal imaging of the pelvis. Findings: The uterus is surgically absent. The bilateral ovaries are not visualized due to overlying bowel gas. Impression 1. Surgically absent uterus. Electronically authenticated by: PORTILLO SALAZAR Date: 07/24/2024 15:43 Dictated By: Portillo Salazar M.D. Signed By: 07/24/24 1545 DD/ 1543 TD/TT: Police Manager: Procedure Note Radiology, Radiologist, MD - 07/24/2024 [facility] [place] [id number] Ultrasound Report Signed Patient: AMINTA GARCIA KMR#: [id number] : 1965Acct:[id number] Age/Sex: 58 / FADM Date: 07/24/24 Loc: [facility] Attending Dr: Rhiannon Chairez D.O. Ordering Physician: Rhiannon Chairez D.O. Date of Service: 07/24/24 Procedure(s): US pelvis w/ transvaginal Accession Number(s): [id number] cc: Rhiannon Chairez D.O.; MIKE MOYA [facility] [address] [address] Patient Name: AMINTA GARCIA MRN: [facility]:[id number] date: 1965 Sex: F Assigned Patient [facility]: [facility] Current Patient Location: [facility] Accession/Order Number: [id number] Exam Date: 07/24/2024 14:31 Report Date: 07/24/2024 15:43 At the request of: RHIANNON CHAIREZ Procedure: US pelvis w/ transvaginal EXAM: US pelvis w/ transvaginal HISTORY: PELVIC PAIN COMPARISON: None. TECHNIQUE: Real-time transvaginal imaging of the pelvis. Findings: The uterus is surgically absent. The bilateral ovaries are not visualized due to overlying bowel gas. Impression 1. Surgically absent uterus. Electronically authenticated by: PORTILLO SALAZAR Date: 07/24/2024 15:43 Dictated By: Portillo Salazar M.D. Signed By:07/24/24 1545 DD/ 1543 TD/TT: Police Manager: us Rhiannon Chairez DO [facility] Final Result documented in this encounter Visit Diagnoses Not on filedocumented in this encounter Care Teams Grapple Crew Leader Relationship Specialty Start Date End Date Mike Moya MD PCP - General Family Medicine 10/10/23 documented as of this encounter
--- OUTSIDE RECORDS SUMMARY | 2025-03-13 08:26 | XMS_ITS | Clinical Summary ---
Author Organization [facility] Address [address] [place] [address] Care Team Providers Care Daytime Babysitter Name Role Phone Unavailable Primary Care Provider Unavailabl e Social History Tobacco Use Types Packs/Day Years Used Date Smoking Tobacco: Never Assessed [place] Safety & Environment Answer Date Rec orded Fear of Current or Ex-Partner Not on file Emotionally Abused Not on file 09/28/2023 Physically Abused Not on file 09/28/2023 Sexually Abused Not on file 09/28/2023 Physically or Sexually Abused Not on file Comments Unknown Sex and Gender Information Value Date Recorded Sex Assigned at Not on file Legal Sex Female 10:32 PM EDT Gender Identity Not on file Sexual Orientation Not on file Plan of Treatment Not on file
--- OUTSIDE RECORDS SUMMARY | 2025-03-13 08:26 | XMS_ITS | Clinical Summary ---
Author Organization [facility] Address [address] [place] [address] Care Team Providers Care Financial Services Education Consultant Name Role Phone Mike Moya DO Primary Care Provider [phone] Bernard Garrett MD Unavailable [phone] Madelin Bean MD Unavailable [phone] Floresita Mena MD Unavailable [phone] Allergies Active Allergy Reactions Criticality Noted Date Comments *Seasonal Headache Low 03/25/2024 Medications Fexofenadine HCl (NERIS PO) Take by mouth. Ac tive Pantoprazole [address] tablet DR Take 1 tablet by mouth daily. Active Lisinopril 10 MG tablet Take 1 tablet by mouth daily. 4 Active Cyanocobalamin 100 MCG tablet Take 1 tablet by mouth daily. Active cholecalciferol 10 MCG (400 UNIT) tablet Take 1 tablet by mouth daily. Active budesonide-formot chepe 160-4.5 mcg/puff Aerosol inhaler Inhale 2 puffs 2 times daily. 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 Begin with consolidation. Do NOT start taking until meet with provider. 126 capsule 1 4 Active Additional Information Patient not taking.Reported on 05/09/2024 Ondansetron 8 MG Tab Dispersible tablet Dissolve 1 tablet on top of tongue every 6 hours as needed for Nausea / Vomiting. 12 tablet 04/29/2024 3:28 PM EDT 4 Active Senna 8.6 MG tablet Take 1 tablet by mouth every 12 hours as needed. 4 Active Additional Information Patient not taking.Reported on 05/09/2024 Polyethylene glycol 17 g Pack packet Take 1 packet by mouth daily as needed. 4 Active Additional Information Patient not taking.Reported on 05/09/2024 witch ronald-glycerin Pads Apply 1 Application topically as needed for Itching. Active Additional Information Patient not taking.Reported on 05/09/2024 Potassium chloride 20 MEQ Tab CR tablet Take 1 tablet by mouth daily. 30 tablet 04/29/2024 3:28 PM EDT 4 Active Magnesium Oxide 140 MG capsule Take 1 capsule by mouth daily. 30 capsule 04/29/2024 3:28 PM EDT 4 Active Lidocaine HCl (Lidocaine viscous) 2 % Solution Take 15 mL by Mouth/Throat route as directed 4 times daily as needed. 100 mL 04/29/2024 3:28 PM EDT 4 Active Active Problems Problem Noted Date Diagnosed Date Physical deconditioning 04/19/2024 Assessment & Plan (04/25/2024 3:44 PM EDT): - 2/2 acute illness, prolonged admission - PT/OT following, currently recommending Inpatient Rehab Emesis 04/09/2024 Assessment & Plan (04/26/2024 2:47 PM EDT): Improved - Intermittent nausea but no recent emesis - Possibly r/t large volume intake with TF and free water, now with reintroduction of solid food - DHT placed 04/04 in setting of severe mucositis, changed to NG 04/12 with emesis and had 2L output - CT A/P 04/12 as above, c/f enteritis - Hold PRN Compazine and Zofran with prolonged QTc - PRN Haldol 0.5mg Q6h QT prolongation 04/09/2024 Assessment & Plan (04/26/2024 2:49 PM EDT): Improved - Intermitted RBBB on EKGs, QTc 477 on 04/25 - Likely d/t electrolyte abnormalities - Replete Mg, K prn. - Arsenic plan as above - Holding PRN Zofran, Compazine Diarrhea 04/03/2024 Assessment & Plan (04/28/2024 9:04 AM EDT): - Varying with constipation and diarrhea, most recently diarrhea again with 5 BMs 04/25 am. Now without diarrhea last 48 hours. - CT A/P 04/12 with c/f small bowel enteritis, see above - Cdiff negative 04/02 and 04/11, molecular panel 04/12 negative - Cont guar gum per RD recs Transaminitis 03/28/2024 Assessment & Plan (04/26/2024 2:49 PM EDT): - Initially noted 03/28 and resolved, uptrending again 04/25 - Fluconazole switched to Micafungin 03/28 (also with prolonged QTc). Now off ppx given count recovery - RUQ US 03/29 overall unremarkable; hepatic steatosis and possible liver parenchymal disease. - Monitor LFTs daily for now Elevated Serum Lactate 03/27/2024 Retinal hemorrhage of both eyes 03/27/2024 Acute respiratory insufficiency 03/26/2024 Assessment & Plan (04/25/2024 3:45 PM EDT): Resolved - Not requiring O2 since 04/16. Recurrent O2 needs with sleeping, previously with fevers, SOB and tachypnea. Has required up to 7L NC this admit. - No home baseline requirement and has had neg sleep study in past - Most recently likely d/t PNA, c/f fungal source - Initial hypoxia with Differentiation Syndrome, volume overload/edema, PNA, DAH. S/p Cefepime thru 03/31 as above. - CT PE 03/25 neg for PE, revealed FEROZ GGO - CT Chest 04/12 with increased volume loss and consolidation in the right base suspicious for pneumonia - Previously diuresing for goal even, holding for now. - Abx/Antifungal as above - BP control as below. - Pulmonary toilet, PEP, IS. - Dulera Q12h in place of home Symbicort (not on formulary) - Goal for SpO2 > 92%. Fever 03/26/2024 Assessment & Plan (04/24/2024 9:10 AM EDT): - Afebrile since 04/13 - Likely d/t PNA, c/f fungal source - Previous fever 03/25, likely 2/2 PNA, Differentiation Syndrome. No positive cultures at the time. Completed 7 day course of Cefepime 03/31 - Blood cultures 04/11 and 04/12 Neg - Urine culture, RVP, Cdiff 04/11: Neg - CT Chest 04/12 with consolidation in the right base suspicious for pneumonia - CT A/P 04/12 with mild wall thickening of proximal small bowel suggestive of enteritis,infectious or inflammatory. - ID consulted, appreciate recs - Completed an empiric course of Cefepime (04/11-04/19) - Completed 7 day course of Flagyl 04/17 - Rec'd Vanco 04/11-04/16 - Started Cresemba 04/12 for mold coverage (not Vori d/t QT prolongation), continue until see with ID as outpatient 06/18 (Discussed with 04/24) - Repeat CT Chest in 6 weeks (scheduled 06/03) ) and follow up with ID as above History of NSCLC (2008) 03/26/2024 Assessment & Plan (04/05/2024 1:50 PM EDT): - S/p RLL lobectomy and adjuvant chemotherapy with cisplatin/pemetrexed (complicated by renal failure requiring dialysis, with subsequent recovered renal function). - Yearly surveillance - CT PE 03/26 with indeterminate few stellate left lung nodules, largest at the lung apex measuring 12 mm - Previous yearly CT Chest notes: A nodular cluster of opacities within the left lung apex measures 1 x 1.4 cm - Follows with [facility] Melanoma 03/26/2024 Assessment & Plan (03/31/2024 1:24 PM EDT): - Stage I sacrum lesion s/p resection 2007 Leukemic infiltrate of retina 03/26/2024 Assessment & Plan (04/23/2024 7:38 AM EDT): - Vision changes in R eye noted 2 days prior to admit - Optho consult 03/26, appreciate recs - DFE with numerous retinal hemorrhages in each eye, improved per notes 04/05 - Pt plan to follow up locally with Optho, [facility] scheduled for 05/28 as to not be lost to follow up, can cancel if gets an appt locally - Notify Optho if vision worsens Essential hypertension 03/26/2024 Assessment & Plan (04/24/2024 12:04 PM EDT): - Held home Lisinopril with tenuous state, e/o TLS - Rec'd Amlodipine while inpatient, transitioned to home Lisinopril 04/24 GERD 03/26/2024 Assessment & Plan (03/26/2024 3:59 PM EDT): - Home PPI Oral lesions/Mucositis 03/26/2024 Assessment & Plan (04/25/2024 3:46 PM EDT): - 2/2 Chemotherapy. 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 (Idarubicin D1-4 given high risk) - Missed evening dose of ATRa on D10 d/t mucositis - Arsenic held 04/09-04/13 with QT prolongation and concern for sepsis . Resumed OSCAR at 50% dosing 04/13-04/16 (QTc improved), 75% dosing 04/16 evening, increased to 100% 04/18 - Deferred BMBx prior to starting treatment d/t high risk APL with symptomatic DIC and urgent need to start chemotherapy. - BMBx 04/23, results pending - LP with IT chemo (hyperleukocytosis on admit) 04/23, REX - TTE 03/25 Normal to hyperdynamic LV, EF 65-70%. - Pancytopenia 2/2 APL and chemotherapy Follow transfusion parameters as per below. No transfusions today. For high risk APL * If Hgb <7: give 1 unit of PRBCs * If fibrinogen < 200, give 2 pools cryo * If PLT <20K, give 1 unit of pheresed platelets, irradiated * If INR >2.0, give 2 units FFP - Keep K>4, Mg >2 (AFTER risk of TLS, while getting OSCAR) - Previously rec'd Dexamethasone with prednisone taper with DS, completed 04/20 - Check QTc every Mon/ while receiving OSCAR. - Discontinued ppx avc/germania at count recovery - Monitoring for Differentiation Syndrome: fever, dyspnea, weight gain, pulmonary infiltrates/effusions, increasing WBC. Call Attending if any concerns. Acute management includes holding Atra or Arsenic under direction of Attending MD ONLY and consider Dexamethasone 10mg BID - Plan to discharge on Monday once bmbx results Resolved Problems Problem Noted Date Diagnosed Date Resolved Date Ventricular tachycardia 04/11/202404/07 Hypernatremia 04/09/2024 04/24/2024 Steroid-induced hyperglycemia 03/30/2024 04/24/2024 Constipation 03/29/2024 04/03/2024 Headache 03/26/2024 04/16/2024 Social History Tobacco Use Types Packs/Day Years Used Date Smoking Tobacco: Former Cigarettes Smokeless Tobacco: Never Tobacco Cessation:Counseling Given: Not Answered Alcohol Use Standard Drinks/Week Comments Not Currently 0 (1 standard drink = 0.6 oz pur e alcohol) [facility] Utilities Answer Date Recorded In the past 12 months has e electric, gas, oil, or water [employer] threatened to shut off services in your home? No 04/02/2024 AUDIT-C Answer Date Recorded Q1: How often do you have a drink containing alc ohol? Never 04/02/2024 Average Number of Drinks Not on file 024 Frequency of Binge Drinking Not on file 03/08 Hunger Vital Sign Answer Date Recorded Within the past 12 months, y ou worried that your food would run out before you got the money to buy more. Never true 04/02/20 24 Within the past 12 months, t he food you bought just didn't last and you didn't have money to get more. Never true 04/02/2024 PRAPARE - Transportation Answer Date Re corded In the past 12 months, has l ack of transportation kept you from medical appointments or from getting medications? No 03/08 In the past 12 months, has l ack of transportation kept you from meetings, work, or from getting things needed for daily living? No 04/02/2024 Housing Stability Vital Sign Answer Joe e Recorded In the last 12 months, was t here a time when you were not able to pay the mortgage or rent on time? No 04/02/2024 In the past 12 months, how m any times have you moved where you were living? 1 04/02/2024 At any time in the past 12 m [facility], were you homeless or living in a fci (including now)? No 04/02/2024 Comments Unknown Sex and Gender Information Value Date Recorded Sex Assigned at Not on file Legal Sex Female 10:58 PM EDT Gender Identity Not on file Sexual Orientation Not on file Last Filed Vital Signs Vital Sign Reading Time Taken Comments Blood Pressure 99/58 05/09/2024 2:12 PM EDT Pulse 94 05/09/2024 2:12 PM EDT Temperature 36.9 C (98.4 F) 05/09/2024 2:12 PM EDT Respiratory Rate 16 05/09/2024 2:12 PM EDT Oxygen Saturation 99% 05/09/2024 2:12 PM EDT Inhaled Oxygen Concentration - - Weight 68.2 kg (150 lb 4.8 oz) 05/09/2024 2:12 P M EDT Height 167.6 cm (5' 6 ) 03/26/2024 1:42 AM EDT Body Mass Index 24.26 03/26/2024 1:42 AM EDT Plan of Treatment Health Maintenance Due Date Last Done Comments TETANUS 1965 HIV SCREENING DISCUSSION 1980 HEP B VACCINE (1 of 3 - 19+ 3-dose series) 1984 TDAP (ADULT) 1984 ZOSTER (SHINGLES) VACCINE (1 of 2) 1984 CERVICAL CANCER SCREENING DISCUSSION 1986 LIPID SCREENING 2005 MAMMOGRAM SCREENING DISCUSSION 2005 COLORECTAL CANCER SCREENING DISCUSSION 2010 PNEUMOCOCCAL VACCINE SERIES (2 of 2 - PPSV23) 08/21/2020 06/26/2020 COVID-19 VACCINE (5 - 2023-2 5 season) 2024 12/17/2021, 05/25/2021, 11/05/2020, Additional history exists INFLUENZA VACCINE (#1) 2025 , 06/08/2023, 05/06/2020, Additional history exists PNEUMOCOCCAL VACCINE SERIES Discontinued 06/26/2020 HEPATITIS C VIRUS SCREENING Completed 03/25/2024 Medical Devices Implanted Type Area Adventure Therapist Device Identifier Shelf Expiration Date Model / Serial / Lot Cath Cvc 7fr 16cm Super Kits - [id number] Implanted:Qty: 1 on 03/25/2024 by Chauncey Whitfield MD at [facility] Right: Neck [employer] [id number] 2025 [id number] Description:Implant time-out completed by intra-procedural staff including this RN, septic tank service technician, and performing physician. The following was completed. RN reads out loud implant type/size/ expiration date, and verbalizes location. Holds package up to tech to visually verify implant details. Tech reads back package details MD verifies verbally correct implant Time-out was completed for each coil during embolization, if applicable. Port Mri Dual Powerport - [id number] Implanted:Qty: 1 on 04/26/2024 by Loan Franklin DO at [facility] Right: Chest Wall [employer] [id number] 08/06/2025 [id number] / / [id number] Description:Implant time-out completed by intra-procedural staff including this RN, septic tank service technician, and performing physician. The following was completed. RN reads out loud implant type/size/ expiration date, and verbalizes location. Holds package up to tech to visually verify implant details. Tech reads back package details MD verifies verbally correct implant Time-out was completed for each coil during embolization, if applicable. ' Procedures Procedure Name Priority Date/Time Associated Diagnosis Comments HEPATITIS BATTERY, CHRONIC Routine 03/25/2024 11:02 AM EDT from Last 3 Months or Most Recently Relevant to Health Maintenance Results * HEPATITIS BATTERY, CHRONIC (03/25/2024 11:02 AM EDT) Hepatitis B Surface Ag Negative Negative 03/25/2024 1:24 PM EDT [facility] Hep B Surface Ab Negative Negative 03/25/2024 1:24 PM EDT [facility] Hep B Core Ab,Total (IgG+IgM) Negative Negative 03/25/2024 1:24 PM EDT [facility] Hepatitis C Antibody Negative Negative 03/25/2024 1:24 PM EDT [facility] Blood Line Draw / Unknown 03/25/2024 11:02 AM EDT 03/25/2024 11:15 AM EDT Peggy De La Torre BUSHLER-FACULTY I ON CALL MEDICAL ASSISTANT IMMUNOLOGY ORDERABLES Final Result [facility] [address] [address] from Last 3 Months or Most Recently Relevant to Health Maintenance Insurance [facility] Advance Directives For more information, please contact: [phone] (7:30 AM - 6PM [facility], Monday-Monday) * Full Code (Latest Code Status on File) Date Activated Date Inactivated Comments 03/26/2024 1:35 AM * Full Code Date Activated Date Inactivated Comments 03/25/2024 3:23 PM 03/26/2024 1:35 AM Care Teams Financial Services Education Consultant Relationship Specialty Start Date End Date GriffinMike [address] [place] [address] PCP - General Family Medicine 03/24/24 Bernard Garrett MD [address] [place] [address] [place] [address] Hematology and Oncology 03/26/24 Madelin Bean MD [address] [place] [id number] Infectious Disease Infectious Disease 04/18/24 Floresita Mena MD [address] [place] [address] Hematology 04/25/24
--- OUTSIDE RECORDS SUMMARY | 2025-03-13 08:26 | XMS_ITS | Encounter Summary ---
Author Organization [facility] Address [address] [place] [address] Care Team Providers Care Junior Data Analyst Name Role Phone House Sr., Mike SANCHEZ Primary Care Provider + Bernard Garrett MD Unavailable Unavail able July Renee APRN.STEEL FLOOR PAN PLACING SUPERVISOR Unavailable [phone] Stephanie Carter RN Unavailable [phone] Sofia Lay Unavailable Unavailable Opal Barbosa RN Unavailable Unavailable Source Comments In the event this information is protected by the Federal Confidentiality of Alcohol and Drug AbusePatient Records regulations: The Federal rules restrict any use of the information to criminally investigate or prosecute any alcohol or drug abuse patient.[facility] Reason for Visit * Reason Comments Bone Marrow Biopsy Next Day Call Encounter Details Date Type Department Care Team (Late st Contact Info) Description 01/08/2025 Telephone Hematology/Oncology [address] [place] [address] Gena Flaherty LPN Bone Marrow Biopsy Next Day Call Social History Tobacco Use Types Packs/Day Years [...] is lower risk 9 03/21/2023 Data from: https://www.neighborhoodatlas.medicine.[facility]/. Last address used for calculation [...] AM Tono Garcia documented in this encounter Miscellaneous Notes * Telephone Encounter - Gena Flaherty LPN - 01/08/2025 3:32 PM EDT FOLLOW-UP BONE MARROW BIOPSY CALL BACK Phone call made to Aminta K Vasyl for follow-up Bone Marrow Biopsy procedure on 01-07-25. 1. Are you having any of the following? No 2. Has there been any bleeding from the site? NO 3. Describe the appearance of the biopsy site: Normal 4. Do you have any questions or concerns? No Gena Flaherty LPN documented in this encounter Plan of Treatment Upcoming Encounters Date Type Department Care Team (Latest Contact Info) Description 04/03/2025 2:00 PM EDT Results Only Main [facility] [address] [address] [place] [address] labs - no longer has port 04/03/2025 3:00 PM EDT Visit (SP) Office Hematology/Oncology [address] [place] [address] Cecy Guevara MD [address] [place] [address] [id number] 07/08/2025 10:15 AM EST Appointment Radiology Pet CT [address] [facility] [place] [address] CT CHEST WO IV 07/14/2025 11:00 AM EST Visit (SP) Office Hematology/Oncology [address] [place] [address] [place] [address] Ignacio Anderson MD [address] [place] [address] 6 MONTH FOLLOW UP AFTER CT SCAN documented as of this encounter Visit Diagnoses Not on filedocumented in this encounter Care Teams Junior Data Analyst Relationship Specialty Start Date End Date Mike Moya Sr., DO PCP - General Family Medicine 01/09/15 Bernard Garrett MD Physician Hematology/Oncology 05/16/24 02/07/25 July Renee, DAWNA.STEEL FLOOR PAN PLACING SUPERVISOR [address] [place] [address] [place] [address] Nurse Practitioner Hematology/Oncology 05/16/24 Stephanie Carter, RN [address] [place] [address] [place] [address] Specialty Core Sucker Hematology/Oncology 05/16/24 Sofia Lay LSW Overlocker 06/20/24 Opal Barbosa, RN Specialty Core Sucker Hematology/Oncology 11/10/24 documented as of this encounter
--- OUTSIDE RECORDS SUMMARY | 2025-03-13 08:26 | XMS_ITS | Encounter Summary ---
Author Organization [facility] Address [address] [place] [address] Care Team Providers Care Campaign Coordinator Name Role Phone House Sr., Mike SANCHEZ Primary Care Provider + Brenard Garrett MD Unavailable Unavail able July Renee TURNING MACHINE OPERATOR.SUB MASTER Unavailable [phone] Stephanie Carter RN Unavailable [phone] Sofia Lay Unavailable Unavailable Opal Barbosa RN Unavailable Unavailable Source Comments In the event this information is protected by the Federal Confidentiality of Alcohol and Drug AbusePatient Records regulations: The Federal rules restrict any use of the information to criminally investigate or prosecute any alcohol or drug abuse patient.[facility] Encounter Details Date Type Department Care Team (Late st Contact Info) Description 05/07/2024 Lab Requisition [facility] [address] [place] [address] [place] [address] [place] [address] Person encountering health services to consult on behalf of another person Social History Tobacco Use Types Packs/Day Years Used Date Smoking Tobacco: Never Smokeless Tobacco: Never Alcohol Use Standard Drinks/Week Comments No 0 (1 standard drink = 0.6 oz pur e alcohol) PHQ-2 Answer Date Recorded PHQ-2 score 0 05/02/2024 Area Deprivation Index Answer Date Chritsian rded National Score (1-100), lower number is lower ri sk 91 03/21/2023 State Score (1-10), lower number is lower risk 9 03/21/2023 Data from: https://www.neighborhoodatlas.[facility]/. Last address used for calculation [address] [...] 04/03/2025 2:00 PM EDT Results Only Main [facility] [address] [address] [place] [address] labs - no longer has port 04/03/2025 3:00 PM EDT Visit (SP) Office Hematology/Oncology [address] [place] [address] [place] [address] [place] [address] [id number] 07/08/2025 10:15 AM EST Appointment Radiology Pet CT [address] [address] CT CHEST WO IV 07/14/2025 11:00 AM EST Visit (SP) Office Hematology/Oncology [address] [place] [address] Ignacio Anderson MD [address] [place] [address] 6 MONTH FOLLOW UP AFTER CT SCAN documented as of this encounter Procedures Procedure Name Priority Date/Time Associated Diagnosis Comments OUTSIDE BONE MARROW SLIDE REVIEW Routine 05/07/2024 5:30 PM EDT Person encountering health services to consult on behalf of another person documented in this encounter Results * OUTSIDE BONE MARROW SLIDE REVIEW (05/07/2024 5:30 PM EDT) Case Report Bone Marrow Patholog y Report Case: [id number] Authorizing Provider: Cecy Guevara MD Collected: 05/07/2024 05:30 PM Ordering Location: [facility] Received: 05/07/2024 05:29 PM [facility] Pathologist: Zohreh Malave MD Specimen: Slide(s), 12 SLIDES [id number] 05/09/2024 1:38 PM EDT [facility] FINAL DIAGNOSIS A. Outside slides ([id number], 04/23/2024), the [facility], [place], [place]: Bone marrow, aspirate smear and core biopsy, with clot section: - Cellular marrow (50-60%) with trilineage hematopoiesis. - No morphologic evidence of acute leukemia. - See comment. Peripheral blood smear: - Normocytic anemia. - Leukopenia. 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 Flow cytometry on this bone marrow specimen shows no significantly increased blast population (2.1% of the total event) expressing HLA-DR, CD13, CD33, CD34, CD117 and CD123, and unremarkable B cells and T cells. Conventional cytogenetics reported a normal female karyotype. Molecular study on this specimen detected a short form (bcr3) PML-RATNA transcripts by APL quantitative PCR (MRN; 0.097%). The currently cellular bone marrow (50 to 60%) shows trilineage hematopoietic maturation with no significantly increased blasts. There is no morphologic evidence of acute leukemia on this specimen. However, given the presence of PML-RATNA transcripts (short form) by molecular study, this may represent genetically minimal involvement. Correlation with clinical findings is suggested 05/09/2024 1:38 PM EDT [facility] Performing Lab Diagnostic interpretation performed at [facility], [address] [place], [place] [address]IA# [id number] Assistant Teaching Professor: Luis Pittman M.D. 05/09/2024 1:38 PM EDT [facility] Microscopic Description PERIPHERAL BLOOD: CBC (04/23/2021) Diff: by report WBC 1.12 k/uL Neutrophils % 73.0 Hemoglobin 7.2 g/dL Lymphocytes % 23.7 MCV 85.5 fL Monocytes % 0.0 RDW-CV 16.2 % Eosinophils % 0.8 Platelet Count 237 k/uL Basophils % 0.0 Metamyelocytes % 1.7 Morphology/Interpreta tion: Leukopenia with mild granulocytic left shift. Normocytic anemia with mild polychromasia and anisopoikilocytosis including ovalocytes and teardrop cells.. BONE MARROW ASPIRATE: Result Normal Range 1 % Blasts 0-2 2 % Promyelocytes 1-5 65 % Myelos/Metas/Bands/Se gs 32-72 2 % Eosinophils 1-6 0 % Basophils 0-1 2 % Monocytes 0-4 24 % Erythroid precursors 13-37 4 % Lymphocytes 7-23 0 % Plasma cells 0-2 Myeloid/Erythro (1.5-4): 3.0. Cells counted: 300. Iron stain result: No particles, no ring sideroblasts. Specimen Quality: Cellular and spicular. Megakaryocytes: Present with predominantly unremarkable morphology progressive maturation with occasional nuclear irregularity or. Erythropoiesis: Megaloblastoid changes. Granulopoiesis: Progressive maturation, no significantly increased blasts. . BONE MARROW BIOPSY: Adequacy: Suboptimal small biopsy with fragmentation. Cellularity: 50 to 60%. ME ratio: Appears normal Hematopoiesis: Trilineage maturation.. Megakaryocytes: Present. Megakaryocyte morphology: Predominantly unremarkable. Lymphoid infiltrate: Rare small lymphoid aggregates composed of a small mature lymphocytes, favor reactive process Bone trabeculae: Unremarkable. Other: Submitted stains are reviewed at the [facility]. CD34 highlights vascular age and few scattered blasts (1-2%). CD117 highlights scattered immature cells and mast cells. CD33 is not contributory due to background staining. CLOT SECTION: Marrow particles: Many. Morphology: Similar to biopsy 05/09/2024 1:38 PM EDT [facility] Blocks or Slides MICROSCOPE SLIDE / Unknown 05/07/2024 5:30 PM EDT 05/07/2024 5:29 PM EDT us Cecy Guevara MD SURGICAL PATHOLOGY Final Resu lt [facility] [address] [place] [address], documented in this encounter Visit Diagnoses Diagnosis Person encountering health services to consult on behalf of another person Other person consulting on behalf of another person documented in this encounter Care Teams Campaign Coordinator Relationship Specialty Start Date End Date Mike Moya Sr., DO PCP - General Family Medicine 01/09/15 Bernard Garrett MD Physician Hematology/Oncology 05/16/24 02/07/25 July Renee APRN.SUB MASTER [address] [address] Nurse Practitioner Hematology/Oncology 05/16/24 Stephanie Carter, UCHE [address] [place] [address] Specialty Treatment Supervisor Hematology/Oncology 05/16/24 Sofia Lay LSW Research Clerk 06/20/24 Opal Barbosa, RN Specialty Treatment Supervisor Hematology/Oncology 11/10/24 documented as of this encounter
--- OUTSIDE RECORDS SUMMARY | 2025-03-13 08:26 | XMS_ITS | Clinical Summary ---
Author Organization [facility] Address [address] [place] [address] Phone Care Team Providers Care Peoplesoft Analyst Name Role Phone Unavailable Primary Care Provider Unavailabl e Social History Tobacco Use Types Packs/Day Years Used Date Smoking Tobacco: Never Assessed Comments Unknown Sex and Gender Information Value Date Recorded Sex Assigned at Not on file Legal Sex Female 9:23 PM EST Gender Identity Not on file Sexual Orientation Not on file Plan of Treatment Not on file
--- OUTSIDE RECORDS SUMMARY | 2025-03-13 08:26 | XMS_ITS ---
Author Organization [facility] Address [address] [place] [address] Care Team Providers Care Product Scientist Name Role Phone Mike Moya DO Primary Care Provider [phone] Bernard Garrett MD Unavailable [phone] Madelin Bean MD Unavailable Floresita Mena MD Unavailable Active Problems Problem Noted Date Diagnosed [...] 1 x 1.4 cm - Follows with [facility] Melanoma 03/26/2024 Assessment & Plan (03/31/2024 1:24 PM EDT): - Stage I sacrum lesion s/p resection 2006 Leukemic infiltrate of retina 03/26/2024 Assessment & [...] consulted, signed off 04/19 - Rec'd Morphine ASSOCIATE SALES REPRESENTATIVE 04/04-04/12, Scheduled Morphine stopped 04/18, No longer [...] to discharge on Monday once bmbx results Current Treatment and Therapy Plans IP HEM ATRA IDARUBICIN OSCAR (APML4) INDUCTION* Plan Start Date:03/25/2024 Plan Provider:Floresita Mena MD Linked Problems Acute promyelocytic leukemia not having achieved remission Treatment Medications Current Day (Days 1 through 60, Cycle 1 - Planned for 03/25/2024) arsenic (TRISENOX) chemo infusionIDArubicin (IDAMYCIN) chemo infusiontretinoin (VESANOID) arsenic trioxide (TRISENOX) 12 mg in Sodium chloride 0.9%, with overfill, tubing 136 mL (total volume) chemo infusionarsenic trioxide (TRISENOX) 6 mg in Sodium chloride 0.9%, with overfill, tubing 130 mL (total volume) chemo infusionarsenic trioxide (TRISENOX) 8.8 mg in Sodium chloride 0.9%, with overfill, tubing 132.8 mL (total volume) chemo infusionIDArubicin (IDAMYCIN) 22.68 mg in Sodium chloride 0.9%, with overfill, tubing 96.68 mL (total volume) chemo infusionIDArubicin (IDAMYCIN) 22.8 mg in Sodium chloride 0.9%, with overfill, tubing 96.8 mL (total volume) chemo infusiontretinoin (VESANOID) capsule; dose = 40 mgtretinoin (VESANOID) capsule; dose = 50 mgtretinoin 10 MG capsule [facility] OP TRANSFUSE RBC AND PLATELET* Plan Start Date:05/08/2024 Plan Provider:Vivi Mcqueen APRN-AGENT BROKER Linked Problems Acute promyelocytic leukemia not having achieved remission Treatment Medications No medications scheduled. Past Treatment and Therapy Plans ONCOLOGY TREATMENT B Plan Name Start Date Discontinue Date Treatment Medications Discontinue Reason Plan Provider Cycles IP/OP INTRATHECAL CHEMOTHERAPY 4 11/11/2024 methotrexate / cytarabine / hydrocortisone INTRATHECAL chemo injection Utility Discontinued Adi Chavez MD 1 of 2 cycles started Lifetime Dose Tracking * Chemical Lifetime Dose Automatic Entry Manual Entr y Idarubicin 47.136 mg/m2 (90.84 mg) 47.136 mg/m2 (90. 84 mg) 0 mg/m2 (0 mg) Resolved Problems Problem Noted Date Diagnosed Date Resolved Date Ventricular tachycardia 04/11/202404/07 Hypernatremia 04/09/2024 04/24/2024 Steroid-induced hyperglycemia 03/30/2024 04/24/2024 Constipation 03/29/2024 04/03/2024 Headache 03/26/2024 04/16/2024
--- OUTSIDE RECORDS SUMMARY | 2025-03-13 08:26 | XMS_ITS | Encounter Summary ---
Author Organization [facility] Address [address] [place] [address] Care Team Providers Care Surfacing Machine Operator Name Role Phone House Sr., Mike SANCHEZ Primary Care Provider + Bernard Garrett MD Unavailable Unavail able July Renee CAD DESIGNER.SPRING ASSEMBLER SUPERVISOR Unavailable [phone] Stephanie Carter RN Unavailable [phone] Sofia Lay Unavailable Unavailable Opal Barbosa RN Unavailable Unavailable Source Comments In the event this information is protected by the Federal Confidentiality of Alcohol and Drug AbusePatient Records regulations: The Federal rules restrict any use of the information to criminally investigate or prosecute any alcohol or drug abuse patient.[facility] Reason for Visit * Reason Comments Freight Elevator Operator - Other Tretinoin Cream Rx Encounter Details Date Type Department Care Team (Late st Contact Info) Description 01/20/2025 Telephone Hematology/Oncology [address] [place] [id number] [place] [address] [place] [phone] Freight Elevator Operator - Other (Tretinoin Cream Rx) Social History Tobacco Use Types Packs/Day Years [...] is lower risk 9 03/21/2023 Data from: https://www.neighborhoodatlas.medicine.[facility].edu/. Last address used for calculation [address] [...] encounter Miscellaneous Notes * Telephone Encounter - Donya Momin - 01/20/2025 2:17 PM EDT Aminta Fallon('s) pharmacy: Valerie from [facility] pharmacy is calling Cecy Guevara MD today regarding Freight Elevator Operator - Other (Tretinoin Cream Rx) Calling to check on refill. Said they have faxed requests and this is the final outreach to get the refill for medication. Patient has been identified by name and birthdate. Duration of symptoms: N/A Requesting response back: [phone] Opt[employer]5 (home) [phone] (cell) Donya Momin January 20, 2025 documented in this encounter Plan of Treatment Upcoming Encounters Date Type Department Care Team (Latest Contact Info) Description 04/03/2025 2:00 PM EDT Results Only Main [facility] [address] [address] [place] [address] labs - no longer has port 04/03/2025 3:00 PM EDT Visit (SP) Office Hematology/Oncology [address] [place] [address] [place] [address] [place] [address] C92.41 07/08/2025 10:15 AM EST Appointment Radiology Pet CT [address] [facility] [address] CT CHEST WO IV 07/14/2025 11:00 AM EST Visit (SP) Office Hematology/Oncology [address] [facility] [address] Ignacio Anderson MD [address] [facility] [address] 6 MONTH FOLLOW UP AFTER CT SCAN documented as of this encounter Visit Diagnoses Not on filedocumented in this encounter Care Teams Surfacing Machine Operator Relationship Specialty Start Date End Date Mike Moya Sr., DO PCP - General Family Medicine 01/09/15 Bernard Garrett MD Physician Hematology/Oncology 05/16/24 02/07/25 July Renee APRN.SPRING ASSEMBLER SUPERVISOR [address] [place] [address] [place] [address] Nurse Practitioner Hematology/Oncology 05/16/24 Stephanie Carter, UCHE [address] [facility] [address] [address] Specialty Freight Elevator Operator Hematology/Oncology 05/16/24 Sofia Lay LSW Aquaculture Program Director 06/20/24 Opal Barbosa, RN Specialty Freight Elevator Operator Hematology/Oncology 11/10/24 documented as of this encounter
--- OUTSIDE RECORDS SUMMARY | 2025-03-13 08:26 | XMS_ITS | Encounter Summary ---
Author Organization [facility] Address [address] [place] [address] Care Team Providers Care Weed Control Inspector Name Role Phone House Sr., Mike SANCHEZ Primary Care Provider + Bernard Garrett MD Unavailable Unavail able July Renee SCRAP STRIPPER HAND.TANK BUILDER Unavailable [phone] Stephanie Carter RN Unavailable [phone] Sofia Lay Unavailable Unavailable Opal Barbosa RN Unavailable Unavailable Source Comments In the event this information is protected by the Federal Confidentiality of Alcohol and Drug AbusePatient Records regulations: The Federal rules restrict any use of the information to criminally investigate or prosecute any alcohol or drug abuse patient.[facility] Encounter Details Date Type Department Care Team (Late st Contact Info) Description 08/15/2024 Get Medical Advice Hematology/Oncology [address] [place] [address] [place] [address] [place] [phone] Gabapentin Social History Tobacco Use Types Packs/Day Years Used Date Smoking Tobacco: Former Cigarettes 1 20.4 0 08/07/1988 - 01/05/2009 Smokeless Tobacco: Never Alcohol Use Standard Drinks/Week Comments No 0 (1 standard drink = 0.6 oz pur e alcohol) PHQ-2 Answer Date Recorded PHQ-2 score 1 08/15/2024 Area Deprivation Index Answer Date Christian rded National Score (1-100), lower number is lower ri sk 91 03/21/2023 State Score (1-10), lower number is lower risk 9 03/21/2023 Data from: https://www.neighborhoodatlas.[facility]/. Last address used for calculation [address] [...] of Assessment Author No 01/16/2015 9:22 AM Toon Garcia * Do you have difficulty dressing [...] Description 04/03/2025 2:00 PM EDT Results Only [facility] [address] [address] [place] [address] labs - no longer has port 04/03/2025 3:00 PM EDT Visit (SP) Office Hematology/Oncology [address] [place] [address] [place] [address] [place] [address] C92.41 07/08/2025 10:15 AM EST Appointment Radiology Pet CT [address] [facility] [place] [address] CT CHEST WO IV 07/14/2025 11:00 AM EST Visit (SP) Office Hematology/Oncology [address] [place] [address] [place] [address] Ignacio Anderson MD [address] [facility] [place] [address] 6 MONTH FOLLOW UP AFTER CT SCAN documented as of this encounter Visit Diagnoses Not on filedocumented in this encounter Care Teams Weed Control Inspector Relationship Specialty Start Date End Date Mike Moya Sr., DO PCP - General Family Medicine 01/09/15 Bernard Garrett MD Physician Hematology/Oncology 05/16/24 02/07/25 July Renee, SCRAP STRIPPER HAND.TANK BUILDER [address] [place] [address] [place] [address] Nurse Practitioner Hematology/Oncology 05/16/24 Stephanie Carter, UCHE [address] [place] [address] [place] [address] Specialty Tutorial Laboratory Supervisor Hematology/Oncology 05/16/24 Sofia Lay LSW Africana Studies Professor 06/20/24 Opal Barbosa, RN Specialty Tutorial Laboratory Supervisor Hematology/Oncology 11/10/24 documented as of this encounter
--- OUTSIDE RECORDS SUMMARY | 2025-03-13 08:26 | XMS_ITS | Encounter Summary ---
Author Organization [facility] Address [address] [place] [address] Care Team Providers Care Tissue Rewinder Name Role Phone House Sr., Mike SANCHEZ Primary Care Provider + Bernard Garrett MD Unavailable Unavail able July Renee SKIMMER.RATE ENGINEER Unavailable Stephanie Carter RN Unavailable [phone] Sofia Lay Unavailable Unavailable Opal Barbosa RN Unavailable Unavailable Source Comments In the event this information is protected by the Federal Confidentiality of Alcohol and Drug AbusePatient Records regulations: The Federal rules restrict any use of the information to criminally investigate or prosecute any alcohol or drug abuse patient.[facility] Encounter Details Date Type Department Care Team (Late st Contact Info) Description 11/25/2024 Get Medical Advice Hematology/Oncology [address] [place] [address] [place] [address] [place] [address] Papers need to extend for my disability leave. Social History Tobacco Use Types Packs/Day Years [...] is lower risk 9 03/21/2023 Data from: https://www.neighborhoodatlas.[facility].edu/. Last address used for calculation [address] [...] 04/03/2025 2:00 PM EDT Results Only Main [place] [address] [address] [place] [address] labs - no longer has port 04/03/2025 3:00 PM EDT Visit (SP) Office Hematology/Oncology [address] [place] [address], [place] [address] [place] [address] [place] [address] C92.41 07/08/2025 10:15 AM EST Appointment Radiology Pet CT [address] [place] [address] [place] [address] CT CHEST WO IV 07/14/2025 11:00 AM EST Visit (SP) Office Hematology/Oncology [address] [place] [address] [place] [address] Ignacio Anderson MD [address] [place] [address] 6 MONTH FOLLOW UP AFTER CT SCAN documented as of this encounter Visit Diagnoses Not on filedocumented in this encounter Care Teams Tissue Rewinder Relationship Specialty Start Date End Date Mike Moya Sr., PCP - General Family Medicine 01/09/15 Bernard Garrett MD Physician Hematology/Oncology 05/16/24 02/07/25 July Renee, DAWNA.RATE ENGINEER [address] [place] [address] [place] [address] Nurse Practitioner Hematology/Oncology 05/16/24 Stephanie Carter, UCHE [address] [place] [address] [place] [address] Specialty Waste Specialist Hematology/Oncology 05/16/24 Sofia Lay LSW Credit Card Clerk 06/20/24 Opal Barbosa, RN Specialty Waste Specialist Hematology/Oncology 11/10/24 documented as of this encounter
--- OUTSIDE RECORDS SUMMARY | 2025-03-13 08:26 | XMS_ITS | Clinical Summary ---
Author Organization [facility] Address [address] [place] [address] Care Team Providers Care Organizational Psychologist Name Role Phone Mike Moya MD Primary Care Provider [phone] Allergies No known active allergies Medications fexofenadine (Rosy Allergy) 180 MG tablet 1 (one) time each day at the same time. Active etodolac (Lodine) 400 MG tablet Take 400 mg by mouth in the morning and 400 mg before bedtime. 024 Active lisinopril 20 MG tablet Take 20 mg by mouth Daily Active pantoprazole (ProtoNix) 40 MG EC tablet Take 40 mg by mouth Daily 024 Active methylPREDNISolone (Medrol Dospak) 4 MG tabletsIndications:Cap sulitis of metatarsophalangeal (MTP) joint of right foot Follow schedule on MEDROL PACK package instructions to be used as directed 21 tablet 024 Active gabapentin (Neurontin) 300 MG capsule Take 600 mg by mouth in the morning and 600 mg in the evening. 025 2024 Active tretinoin (Vesanoid) 10 MG chemo capsule Take 40 mg by mouth twice a day. 024 Active acyclovir (Zovirax) 400 MG tablet Take 400 mg by mouth in the morning and 400 mg before bedtime. 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 Family History Medical History Relation Name Comments Heart disease Father Hypertension Mother Relation Name Status Comments Father Alive Mother Alive Social History Tobacco Use Types Packs/Day Years Used Date Smoking Tobacco: Former Cigarettes 1 10 Smokeless Tobacco: Never Tobacco Cessation:Counseling Given: Not Answered Alcohol Use Standard Drinks/Week Comments Never 0 (1 standard drink = 0.6 oz pure alcohol) caffeine intake: 3-4 cups per day Comments Unknown Sex and Gender Information Value Date Recorded Sex Assigned at Female 10/09/2023 12:30 PM EST Legal Sex Female 6:48 PM EDT Gender Identity Female 10/09/2023 12:30 PM EST Sexual Orientation Straight 10/09/2023 12 :30 PM EST Last Filed Vital Signs Vital Sign Reading Time Taken Comments Blood Pressure 125/79 11/09/2023 8:44 AM EDT Pulse 89 11/09/2023 8:44 AM EDT Temperature 36.7 C (98 F) 12/31/2022 9:38 AM EDT Respiratory Rate 18 12/31/2022 9:38 AM EDT Oxygen Saturation - - Inhaled Oxygen Concentration - - Weight 83.5 kg (184 lb) 11/09/2023 8:44 AM EDT Height 167.6 cm (5' 6 ) 11/09/2023 8:44 AM EDT Body Mass Index 29.7 11/09/2023 8:44 AM EDT Plan of Treatment Health Maintenance Due Date Last Done Comments CT Colonography 1965 Colonoscopy 1965 Colorectal Cancer Screening 1965 FIT-DNA 1965 FIT 1965 FOBT 1965 Sigmoidoscopy 1965 Mammogram 2005 Influenza Vaccine (#1) 2025 4, 06/08/2023, 05/06/2020, Additional history exists Cervical Cancer Screening 07/17/2029 HPV/Cotest 07/17/2029 Pap Smear 07/17/2029 07/17/2024 Procedures Procedure Name Priority Date/Time Associated Diagnosis Comments PAP SMEAR Routine 07/17/2024 12:00 AM EST from Last 3 Months or Most Recently Relevant to Health Maintenance Results * Pap Smear (07/17/2024 12:00 AM EST) Swab Cervical swab / Unknown us [facility] CYTOLOGY ORDERABLES Final Re sult EXTERNAL LAB from Last 3 Months or Most Recently Relevant to Health Maintenance Insurance [employer] Care Teams Organizational Psychologist Relationship Specialty Start Date End Date Mike Moya MD PCP - General Family Medicine 10/10/23
--- OUTSIDE RECORDS SUMMARY | 2025-03-13 08:26 | XMS_ITS | Encounter Summary ---
Author Organization [facility] Address [facility] [place] [address] Care Team Providers Care Thai Masseur Name Role Phone House Sr., Mike SANCHEZ Primary Care Provider + Bernard Garrett MD Unavailable Unavail able July Renee STUDENT SUPPORT COUNSELOR.UNDERGROUND CONDUIT INSTALLER Unavailable [phone] Stephanie Carter RN Unavailable [phone] Sofia Lay Unavailable Unavailable Opal Barbosa RN Unavailable Unavailable Source Comments In the event this information is protected by the Federal Confidentiality of Alcohol and Drug AbusePatient Records regulations: The Federal rules restrict any use of the information to criminally investigate or prosecute any alcohol or drug abuse patient.[facility] Encounter Details Date Type Department Care Team (Late st Contact Info) Description 11/16/2024 Patient Msg Hematology/Oncology [address] [place] [address] Provider, Ccf APPOINTMENTS SCHEDULED Social History Tobacco Use Types Packs/Day Years [...] is lower risk 9 03/21/2023 Data from: https://www.neighborhoodatlas.medicine.[facility]/. Last address used for calculation [address] [...] 04/03/2025 2:00 PM EDT Results Only Main [place] [address] [address] [place] [address] labs - no longer has port 04/03/2025 3:00 PM EDT Visit (SP) Office Hematology/Oncology [address] [place] [address] [place] [address] [place] [address] [id number] 07/08/2025 10:15 AM EST Appointment Radiology Pet CT [address] [facility] [place] [address] CT CHEST WO IV 07/14/2025 11:00 AM EST Visit (SP) Office Hematology/Oncology [address] [place] [address] [place] [address] Ignacio Anderson MD [address] [place] [address] [place] [address] [address] FOLLOW UP AFTER CT SCAN documented as of this encounter Visit Diagnoses Not on filedocumented in this encounter Care Teams Thai Masseur Relationship Specialty Start Date End Date Mike Moya Sr., PCP - General Family Medicine 01/09/15 Bernard Garrett MD Physician Hematology/Oncology 05/16/24 02/07/25 July Renee APRN.UNDERGROUND CONDUIT INSTALLER [address] [place] [address] [place] [address] Nurse Practitioner Hematology/Oncology 05/16/24 Stephanie Carter, UCHE [address] [place] [address] [place] [address] Specialty Assistant Chief Of Police Hematology/Oncology 05/16/24 Sofia Lay LSW Cable Weaver 06/20/24 Opal Barbosa, UCHE Specialty Assistant Chief Of Police Hematology/Oncology 11/10/24 documented as of this encounter
--- OUTSIDE RECORDS SUMMARY | 2025-03-13 08:26 | XMS_ITS | Encounter Summary ---
Author Organization [facility] Address [address] [place] [address] Care Team Providers Care Candle Wrapper Name Role Phone Mike Moya MD Primary Care Provider [phone] Encounter Details Date Type Department Care Team (Late st Contact Info) Description 08/02/2024 Orders Only [facility] [address] [place] [id number] [place] [address] [facility] [place] [address] Social History Tobacco Use Types Packs/Day Years [...] PAP SMEAR Routine 07/17/2024 12:00 AM EST documented in this encounter Results * Pap Smear (07/17/2024 12:00 AM EST) Swab Cervical swab / Unknown [facility] CYTOLOGY ORDERABLES Final Re sult EXTERNAL LAB documented in this encounter Visit Diagnoses Not on filedocumented in this encounter Care Teams Candle Wrapper Relationship Specialty Start Date End Date Mike Moya MD PCP - General Family Medicine 10/10/23 documented as of this encounter
--- OUTSIDE RECORDS SUMMARY | 2025-03-13 08:26 | XMS_ITS | Encounter Summary ---
Author Organization [facility] Address [address] [place] [address] Care Team Providers Care Steward/Stewardess Tourist Class Name Role Phone House Sr., Mike SANCHEZ Primary Care Provider + Bernard Garrett MD Unavailable Unavail able July Renee HEALTHCARE RECRUITER.RESEARCH ENGINEER MARINE EQUIPMENT Unavailable [phone] Stephanie Carter RN Unavailable [phone] Sofia Lay Unavailable Unavailable Opal Barbosa RN Unavailable Unavailable Source Comments In the event this information is protected by the Federal Confidentiality of Alcohol and Drug AbusePatient Records regulations: The Federal rules restrict any use of the information to criminally investigate or prosecute any alcohol or drug abuse patient.[facility] Reason for Visit * Auth/Cert (Routine) Specialty Diagnoses / Procedures Referred By Martha nguyễn Referred To Contact HOSP INPATIENT Diagnoses Acute Leukemia Procedures EVAL AND TREAT - PT HOSP MAIN [id number] [address] [place] [address] Phone: tel: Referral ID Status Reason Start Date Expiration Date Visits Re quested Visits Authorized [id number] 1 1 Encounter Details Date Type Department Care Team (Late st Contact Info) Description 03/24/2024 Hospital Encounter HOSP MAIN G[address] [place] [address] Christina Mccarthy MD [address] [facility] [address] [place] [address] Acute Leukemia Social History Tobacco Use Types Packs/Day Years [...] is lower risk 9 03/21/2023 Data from: https://www.neighborhoodatlas.medicine.[facility]/. Last address used for calculation [address] [...] Entry Date Author No 01/16/2015 9:22 AM EDT [place] documented in this encounter Plan of Treatment Upcoming Encounters Date Type Department Care Team (Latest Contact Info) Description 04/03/2025 2:00 PM EDT Results Only Main [place] [id number] [place] [address] labs - no longer has port 04/03/2025 3:00 PM EDT Visit (SP) Office Hematology/Oncology [address] [place] [address] Cecy Guevara MD [address] [place] [address] C92.41 07/08/2025 10:15 AM EST Appointment Radiology Pet CT [address] [place] [address] [place] [address] CT CHEST [place] IV 07/14/2025 11:00 AM EST Visit (SP) Office Hematology/Oncology [address] [place] [address] [place] [address] Ignacio Anderson MD [address] [place] [address] [place] [address] [address] MON[address] FOLLOW UP AFTER CT SCAN documented as of this encounter Visit Diagnoses Not on filedocumented in this encounter Care Teams Steward/Stewardess Tourist Class Relationship Specialty Start Date End Date Mike Moya Sr., PCP - General Family Medicine 01/09/15 Bernard Garrett MD Physician Hematology/Oncology 05/16/24 02/07/25 July Renee APRN.RESEARCH ENGINEER MARINE EQUIPMENT [address] [place] [address] [place] [address] Nurse Practitioner Hematology/Oncology 05/16/24 Stephanie Carter, UCHE [address] [facility] [place] [address] Specialty Joiner Helper Hematology/Oncology 05/16/24 Sofia Lay LSW Local Truck Driver 06/20/24 Opal Barbosa, UCHE Specialty Joiner Helper Hematology/Oncology 11/10/24 documented as of this encounter
--- OUTSIDE RECORDS SUMMARY | 2025-03-13 08:26 | XMS_ITS | Encounter Summary ---
Author Organization [facility] Address [facility] [place] [address] Care Team Providers Care Project Eng Name Role Phone House Sr., Mike SANCHEZ Primary Care Provider + Bernard Garrett MD Unavailable Unavail able July Renee DRY GOODS CLERK.POUCH MAKING MACHINE OPERATOR Unavailable [phone] Stephanie Carter RN Unavailable [phone] Sofia Lay Unavailable Unavailable Opal Barbosa RN Unavailable Unavailable Source Comments In the event this information is protected by the Federal Confidentiality of Alcohol and Drug AbusePatient Records regulations: The Federal rules restrict any use of the information to criminally investigate or prosecute any alcohol or drug abuse patient.[facility] Encounter Details Date Type Department Care Team (Late st Contact Info) Description 05/22/2024 Patient Msg Hematology/Oncology [address] [place] [address] Opal Barbosa, RN Calendar Social History Tobacco Use Types Packs/Day Years [...] is lower risk 9 03/21/2023 Data from: https://www.neighborhoodatlas.[facility]/. Last address used for calculation [...] encounter Miscellaneous Notes * Telephone Encounter - Opal Barbosa RN - 06/28/2024 1:47 PM EST I spoke with patient and I let her know that per Dr. Guevara, we are going to have her hold ATRA starting tomorrow for 2 weeks and resume on 07/15/24 and take for 2 weeks and then she will have a one week break (instead of a two week break) to finish this first cycle. I also sent her a [employer] message with these instructions. She expressed understanding and we see her on 07/10. So if she has any questions she can call me or we can talk when she comes in. documented in this encounter Plan of Treatment Upcoming Encounters Date Type Department Care Team (Latest Contact Info) Description 04/03/2025 2:00 PM EDT Results Only Main [place] [id number] [place] [address] labs - no longer has port 04/03/2025 3:00 PM EDT Visit (SP) Office Hematology/Oncology [address] [place] [address] Cecy Guevara MD [address] [place] [address] C92.41 07/08/2025 10:15 AM EST Appointment Radiology Pet CT [address] [facility] [place] [address] CT CHEST WO IV 07/14/2025 11:00 AM EST Visit (SP) Office Hematology/Oncology [address] [place] [address] [place] [address] Ignacio Anderson MD [address] [facility] [place] [address] [address] MON[address] FOLLOW UP AFTER CT SCAN documented as of this encounter Visit Diagnoses Not on filedocumented in this encounter Care Teams Project Eng Relationship Specialty Start Date End Date Mike Moya Sr., PCP - General Family Medicine 01/09/15 Bernard Garrett MD Physician Hematology/Oncology 05/16/24 02/07/25 July Renee APRN.POUCH MAKING MACHINE OPERATOR [address] [place] [address] [place] [address] Nurse Practitioner Hematology/Oncology 05/16/24 Stephanie Carter, RN [address] [place] [address] [place] [address] Specialty Health Care Coach Hematology/Oncology 05/16/24 Sofia Lay LSW Rails Developer 06/20/24 Opal Barbosa, RN Specialty Health Care Coach Hematology/Oncology 11/10/24 documented as of this encounter
--- OUTSIDE RECORDS SUMMARY | 2025-03-13 08:26 | XMS_ITS | Encounter Summary ---
Author Organization [facility] Address [address] [place] [address] Care Team Providers Care Sewer And Inspector Name Role Phone House Sr., Mike SANCHEZ Primary Care Provider + July Renee TECHNICAL SUPPORT PROFESSIONAL.PROCESSING REP Unavailable [phone] Stephanie Carter RN Unavailable [phone] Sofia Lay CHEMICAL OPERATIONS SPECIALIST Unavailable Unavailable Opal Barbosa RN Unavailable Unavailable Source Comments In the event this information is protected by the Federal Confidentiality of Alcohol and Drug AbusePatient Records regulations: The Federal rules restrict any use of the information to criminally investigate or prosecute any alcohol or drug abuse patient.[facility] Encounter Details Date Type Department Care Team (Late st Contact Info) Description 02/12/2025 Patient Msg [place] [address] [place] [address] Provider, Ccf Port removal instructions for Monday02/18/25 Social History Tobacco Use Types Packs/Day Years [...] is lower risk 9 03/21/2023 Data from: https://www.neighborhoodatlas.[facility]/. Last address used for calculation [...] 04/03/2025 2:00 PM EDT Results Only Main [place] [address] [address] [place] [address] labs - no longer has port 04/03/2025 3:00 PM EDT Visit (SP) Office Hematology/Oncology [address] [place] [address] [place] [address] [place] [address] C92.41 07/08/2025 10:15 AM EST Appointment Radiology Pet CT [address] [place] [address] [place] [address] CT CHEST WO IV 07/14/2025 11:00 AM EST Visit (SP) Office Hematology/Oncology [address] [place] [address] [place] [address] Ignacio Anderson MD [address] [place] [address] [place] [address] 6 MONTH FOLLOW UP AFTER CT SCAN documented as of this encounter Visit Diagnoses Not on filedocumented in this encounter Care Teams Sewer And Inspector Relationship Specialty Start Date End Date Mike Moya Sr., PCP - General Family Medicine 01/09/15 July Renee, TECHNICAL SUPPORT PROFESSIONAL.PROCESSING REP [address] [place] [address] [place] [address] Nurse Practitioner Hematology/Oncology 05/16/24 Stephanie Carter, UCHE [address] [place] [address] [place] [address] Specialty Prize Fighter Hematology/Oncology 05/16/24 Sofia Lay LSW Office Equipment Technician 06/20/24 Opal Barbosa, RN Specialty Prize Fighter Hematology/Oncology 11/10/24 documented as of this encounter
--- OUTSIDE RECORDS SUMMARY | 2025-03-13 08:27 | XMS_ITS ---
Author Organization [facility] Address [address] [place] [address] Care Team Providers Care Biodiesel Production Associate Name Role Phone Mike Moya DO Primary Care Provider [phone] Bernard Garrett MD Unavailable [phone] Madelin Bean MD Unavailable [phone] Floresita Mena MD Unavailable [phone] RX Hem/Onc Handoff Status:Enrolled (Active) Start date:04/24/2024 Enrollment date:04/24/2024 Overview High-risk APL [[place]ena but everything local] S/p APML4 Plan for [place] consolidation (NOT APML4) locally per MD discussions (mainly logistical reasons) ATRA consol RX [place] specialty ID: [email or web address] TREATMENT until ID f/up Continued Care and Services Coordination
--- OUTSIDE RECORDS SUMMARY | 2025-03-13 08:27 | XMS_ITS | Encounter Summary ---
Author Organization [facility] Address [address] [place] [address] Care Team Providers Care High School Biology Teacher Name Role Phone House Sr., Mike SANCHEZ Primary Care Provider + Bernard Garrett MD Unavailable Unavail able July Renee TOOL REPAIR TECHNICIAN.ENTERTAINMENT DANCER Unavailable [phone] Stephanie Carter RN Unavailable [phone] Sofia Lay Unavailable Unavailable Opal Barbosa RN Unavailable Unavailable Source Comments In the event this information is protected by the Federal Confidentiality of Alcohol and Drug AbusePatient Records regulations: The Federal rules restrict any use of the information to criminally investigate or prosecute any alcohol or drug abuse patient.[facility] Encounter Details Date Type Department Care Team (Late st Contact Info) Description 08/19/2024 Get Medical Advice Hematology/Oncology [address] [place] [address] [place] [address] [place] [address] Medical leave papers Social History Tobacco Use Types Packs/Day Years [...] is lower risk 9 03/21/2023 Data from: https://www.neighborhoodatlas.medicine.[facility]/. Last address used for calculation [...] 04/03/2025 2:00 PM EDT Results Only Main [place] [address] [address] [place] [address] labs - no longer has port 04/03/2025 3:00 PM EDT Visit (SP) Office Hematology/Oncology [facility] [place] [address] [place] [address] [place] [address] C92.41 07/08/2025 10:15 AM EST Appointment Radiology Pet CT [address] [facility] [place] [address] CT CHEST WO IV 07/14/2025 11:00 AM EST Visit (SP) Office Hematology/Oncology [address] [place] [address] [place] [address] Ignacio Anderson MD [address] [facility] [place] [address] 6 MONTH FOLLOW UP AFTER CT SCAN documented as of this encounter Visit Diagnoses Not on filedocumented in this encounter Care Teams High School Biology Teacher Relationship Specialty Start Date End Date Mike Moya Sr., PCP - General Family Medicine 01/09/15 Bernard Garrett MD Physician Hematology/Oncology 05/16/24 02/07/25 July Renee, TOOL REPAIR TECHNICIAN.ENTERTAINMENT DANCER [address] [place] [address] [place] [address] Nurse Practitioner Hematology/Oncology 05/16/24 Stephanie Carter, UCHE [address] [place] [address] [place] [address] Specialty Hairspring Inspector Hematology/Oncology 05/16/24 Sofia Lay LSW Ad Operations Specialist 06/20/24 Opal Barbosa, RN Specialty Hairspring Inspector Hematology/Oncology 11/10/24 documented as of this encounter
--- OUTSIDE RECORDS SUMMARY | 2025-03-13 08:27 | XMS_ITS | Clinical Summary ---
Author Organization [facility] Address [address] [place] [id number] Care Team Providers Care Dietetic Assistant Name Role Phone House Sr., Mike SANCHEZ Primary Care Provider + July Renee SENIOR PROJECT ACCOUNTANT.DEVELOPMENT LEAD Unavailable [phone] Stephanie Carter RN Unavailable [phone] Sofia Lay ACCIDENT EXAMINER Unavailable Unavailable Opal Barbosa RN Unavailable Unavailable Allergies No known active allergies Medications MULTI-VITAMIN ORAL Take 1 tablet by mouth once daily. Active POTASSIUM/MAGNESIU M (MAGNESIUM-POTASSI UM ORAL) Take by mouth. Activ e calcium phosphate dibas/vit D3 (VITAMIN D, WITH CALCIUM, ORAL) Take by mouth. Active pantoprazole DR (PROTONIX) 40 mg tablet Take 1 tablet by mouth once daily. 30 tablet 5 05/02/20 24 Active ondansetron orally disintegrating (ZOFRAN ODT) 8 mg disintegrating tablet Take 8 mg by mouth every 6 hours as needed. 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 For 2 weeks, then take a 2 week break. Repeat once the 14 day break has ended. 112 capsule 4 08/30/19 25 Active Additional Information Patient not taking.Reported on 03/05/2025 magnesium oxide (URO-MAG) 140 mg capIndications:Acu te promyelocytic leukemia in remission (HCC) Take 1 capsule by mouth once daily. 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 Take 600mg in the morning and 600mg at bedtime. 120 capsule 5 10/15/19 25 025 Active cholecalciferol (VITAMIN D3) 400 unit tab Take 1 tablet by mouth once daily. Active cyanocobalamin (VITAMIN B-12) 100 mcg tab Take 1 tablet by mouth once daily. Active etodolac (LODINE) 400 mg tablet Etodolac Active 400 MG PO Twice daily October 13, 2023 1:00am 09/25/19 24 Active glycerin-witch ronald (A.E.R. WITCH RONALD) 12.5-50 % pad Apply 1 application to affected area. 04/29/20 24 Active lisinopril (ZESTRIL) 10 mg tablet Take 1 tablet by mouth once daily. 03/20/20 24 Active Mag Aspart-Potassium Aspart 250-250 mg cap Take by mouth as directed. 01/21/20 22 Active senna (SENOKOT) 8.6 mg tab Take 8.6 mg by mouth two times a day as needed. 04/29/20 24 Active acyclovir (ZOVIRAX) 400 mg tablet Take 1 tablet by mouth two times a day. 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); Corneal scar; Age-related nuclear cataract of both eyes 02/24/2025 Telephone Hematology/[place]colog y [address] [place] [address] Kayla Smith MD Surface Water Manager - Other 02/18/2025 11:30 AM EDT - 02/18/2025 12:30 PM EDT Surgery Angio [address] [place] [address] Dylan Carias PA-C REMOVAL CATHETER PORT-A-CATH 02/18/2025 10:10 AM EDT - 02/18/2025 1:30 PM EDT Hospital Encounter HOSP MAIN FB36 [address] [place] [address] Dylan Carias PA-C 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) [C92.41] Discharge Disposition: Home 02/18/2025 9:15 AM EDT Visit (SP) Office [place]ematology/[place]olog y [address] [place] [address] Kayla Smith MD Palpitations (Primary Dx); 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); History of neuropathy; History of lung cancer; History of melanoma 02/18/2025 8:15 AM EDT Infusion Center Hematology/Oncolog y [address] [place] [address] BEAM DOFFER 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) 02/18/2025 Travel 02/18/2025 Orders Only [place]ematology/[place] y [address] [place] [address] Kayla Smith MD Palpitations (Primary Dx) 02/17/2025 Travel 02/12/2025 Patient Msg Angio [address] [place] [address] Provider, Ccf Port removal instructions for Monday02/18/25 01/29/2025 Travel 01/27/2025 Telephone [place]ematology[place] y [address] [place] [address] Kayla Smith MD 01/20/2025 Telephone Hematology[place]olog y [address] [place] [address] Kayla Smith MD Surface Water Manager - Other (Tretinoin Cream Rx) 01/08/2025 Telephone Hematology/[place]colog y [address] [place] [address] Gena Flaherty LPN Bone Marrow Biopsy Next Day Call 01/07/2025 10:45 AM EDT Visit (SP) Office Hematology/Oncolog y [address] [place] [address] 1, Bmbx Room 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) (Primary Dx) 01/07/2025 9:15 AM EDT Visit (SP) Office Hematology/[place]colog y [address] [place] [address] Kayla Smith MD 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) (Primary Dx); History of neuropathy; History of lung cancer 01/07/2025 Orders Only Hematology/[place] y [address] [place] [address] Kayla Smith MD 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) (Primary Dx) 01/07/2025 Refill Hematology/[place]colog y [address] [place] [address] Kayla Smith MD Refill Request 01/06/2025 10:00 AM EDT Visit (SP) Office Hematology/Oncolog y [address] [place] [address] Bernard Garrett MD 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) (Primary Dx); History of lung cancer; Pulmonary nodules 01/06/2025 9:30 AM EDT Infusion Center Hematology/Oncolog y [address] [place] [address] 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) 01/06/2025 Travel 12/28/2024 Orders Only Hematology/[place] y [address] [place] [address] Kayla Smith MD 12/26/2024 10:30 AM EDT Infusion Center Hematology/Oncolog y [address] [facility] [place] [place] [address] 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) (Primary Dx) 12/26/2024 Orders Only Hematology/[place]olog y [address] [place] [address] Kayla Smith MD 12/24/2024 10:30 AM EDT Infusion Center Hematology/Oncolog y [address] [place] [address] 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) (Primary Dx) 12/24/2024 10:00 AM EDT Nurse Visit Hematology/Oncolog y [address] [place] [address] Es Martinez Nurse Phong High risk medication use (Primary Dx) 12/23/2024 1:00 PM EDT Office Visit Pulmonary Medicine [address] [place] [address] Jose Grayson MD Multiple lung nodules on CT (Primary Dx); History of primary non-small cell carcinoma of right lung; S/P partial lobectomy of lung; 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); History of melanoma; Restrictive pattern present on pulmonary function testing 12/23/2024 12:30 PM EDT Procedure Pulmonary Medicine [address] [address] 7, Pulm Fct Lab Main Spirometry 12/23/2024 12:15 PM EDT Procedure Pulmonary Medicine [address] [address] 7, Pulm Fct Lab Main Spirometry 12/23/2024 12:00 PM EDT Procedure Pulmonary Medicine [address] [address] 8, Pulm Fct Lab Main Spirometry 12/23/2024 11:30 AM EDT - 12/23/2024 11:59 PM EDT Hospital Encounter Radiology [address] [place] [address] Multiple lung nodules on CT [R91.8] Discharge Disposition: Home 12/20/2024 Orders Only Hematology/[place]olog y [address] [place] [address] Kayla Smith MD 12/19/2024 10:30 AM EDT Infusion Center Hematology/Oncolog y [address] [place] [address] 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) (Primary Dx) 12/16/2024 10:30 AM EDT Infusion Center Hematology/Oncolog y [address] [facility] [place] [address] 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) (Primary Dx) 12/16/2024 10:15 AM EDT Nurse Visit Hematology/Oncolog y [address] [facility] [place] [place] [address] Michelle Mi Nurse Phong High risk medication use (Primary Dx); 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) (Primary Dx) 12/12/2024 Travel from Last 3 Months Immunizations Immunization Administration Dates Next Due influenza (IIV3) vaccine, ag e 6 mo - 64 yr, trivalent (AFLURIA, FLULAVAL, FLUVIRIN, FLUZONE) 05/16/2024 influenza (IIV3) vaccine, tr ivalent (AFLURIA, FLULAVAL, FLUVIRIN, FLUZONE) 05/23/2013 influenza (IIV4) vaccine, ag e 6 mo - 64 yr, quadrivalent, PF (AFLURIA, FLUARIX, FLULAVAL, FLUZONE) 06/08/2023,05/06/2020,05/05/2020 pneumococcal conjugate (PCV1 3) vaccine, 13 valent (PREVNAR 13) 06/26/2020 Social History Tobacco Use Types Packs/Day Years Used Date Smoking Tobacco: Former Cigarettes 1 20.4 0 08/07/1988 - 01/05/2009 Smokeless Tobacco: Never Tobacco Cessation:Counseling Given: Not Answered Alcohol Use Standard Drinks/Week Comments No 0 (1 standard drink = 0.6 oz pur e alcohol) PHQ-2 Answer Date Recorded PHQ-2 score 0 11/12/2024 Area Deprivation Index Answer Date Christian rded National Score (1-100), lower number is lower ri sk 91 03/21/2023 State Score (1-10), lower number is lower risk 9 03/21/2023 Data from: https://www.neighborhoodatlas.medicine.[facility].edu/. Last address used for calculation [address] 03/21/2023 Comments No Sex and Gender Information Value Date Recorded Sex Assigned at Not on file Legal Sex Female 8:59 AM EST Gender Identity Not on file Sexual Orientation Not on file Last Filed Vital Signs Vital Sign Reading Time Taken Comments Blood Pressure 160/89 02/18/2025 1:19 PM EDT Pulse 65 02/18/2025 1:19 PM EDT Temperature 36.3 C (97.3 F) 02/18/2025 12:03 PM EDT Respiratory Rate 14 02/18/2025 1:19 PM EDT Oxygen Saturation 98% 02/18/2025 1:19 PM EDT Inhaled Oxygen Concentration - - Weight 76.8 kg (169 lb 5 oz) 02/18/2025 9:06 AM EDT Height 166.1 cm (5' 5.39 ) 01/06/2025 9:52 AM ED T Body Mass Index 27.84 01/06/2025 9:52 AM EDT Plan of Treatment Upcoming Encounters Date Type Department Care Team (Latest Contact Info) Description 04/03/2025 2:00 PM EDT Results Only Main [facility] [id number] [place], [place] [id number] labs - no longer has port 04/03/2025 3:00 PM EDT Visit (SP) Office Hematology/Oncology [address] [place], [place] [id number] [place] [address] [place] [address] C92.41 07/08/2025 10:15 AM EST Appointment Radiology Pet CT [address] [facility] [facility] [place] [address] CT CHEST WO IV 07/14/2025 11:00 AM EST Visit (SP) Office Hematology/Oncology [address] [facility] [facility] [place] [address] Ignacio Anderson MD [address] [facility] [place] [address] 6 MONTH FOLLOW UP AFTER CT SCAN Health Maintenance Due Date Last Done Comments Cervical Cancer Screening 1976 Anxiety Screening 1983 Depression Screening 1983 HIV Screening 1983 DTaP,Tdap,Td Vaccine (1 - Tdap) 1984 Shingrix Vaccine (1 of 2) [address] Colonography 2010 Cologuard (FIT-DNA) 2010 Colonoscopy 2010 Colorectal Cancer Screening 2010 Fecal Occult Blood 2010 Lipid Screening 2010 Sigmoidoscopy 2010 Pneumococcal Vaccine: 50+ (2 of 2 - PPSV23) 08/21/2020 06/26/2020 Influenza Vaccine (#1) 2025 , 06/08/2023, 05/06/2020, Additional history exists Diabetes Screening 02/19/2028 02/18/2025, 0 01/06/2025, 12/24/2024, Additional history exists Hepatitis C Screening Completed 03/25/2024 Medical Devices Implanted Type Area Occupational Therapy Specialist Device Identifier Shelf Expiration Date Model / Serial / Lot Port Port Chest Wall Procedures Procedure Name Priority Date/Time Associated Diagnosis Comments OCT MACULA CIRRUS OU (BOTH EYES) Routine 03/05/2025 10:28 AM EDT Retinal pigment epithelium tear, right eye OCT ANTERIOR SEGMENT SPECIAL ORDER Routine 03/05/2025 9:19 AM EDT Corneal scar CORNEAL TOPOGRAPHY PENTACAM OU (BOTH EYES) Routine 03/05/2025 8:44 AM EDT 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 IR PORTOCATH REMOVAL Routine 02/18/2025 1:29 PM EDT 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) SURGICAL PATHOLOGY Routine 02/18/2025 1: 11 PM EDT RMVL STEPHANY CVC W/O SUBQ PORT/AIRCRAFT ARMORER 02/18/2025 11:55 AM EDT 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) COMPREHENSIVE METABOLIC PANEL Routine 02/18/2025 8:30 AM EDT 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) CBC + DIFF Routine 02/18/2025 8:30 AM EDT 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) DIAGNOSTIC BONE MARROW BIOPSIES & ASPIRATIONS Routine 01/07/2025 10:48 AM EDT 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) FLOW CYTOMETRY FOR LEUKEMIA/LYMPHOMA (FCLL) REFLEX Routine 01/07/2025 10:45 AM EDT 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) FLOW CYTOMETRY FOR LEUKEMIA/LYMPHOMA (FCLL) PERFORMABLE Routine 01/07/2025 10:45 AM EDT 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) PML/RATNA RTPCR Routine 01/07/2025 10:45 AM EDT 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) CBC + DIFF Routine 01/07/2025 10:45 AM EDT 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) FLOW CYTOMETRY FOR LEUKEMIA/LYMPHOMA (FCLL) Routine 01/07/2025 10:45 AM EDT 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) DNA EXTRACTION BONE MARROW (BUFFY COAT) Routine 01/07/2025 10:45 AM EDT 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) BONE MARROW CHROMOSOME ANAL Routine 01/07/2025 10:45 AM EDT 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) BONE MARROW ANALYSIS Routine 01/07/2025 10:45 AM EDT 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) COMPREHENSIVE METABOLIC PANEL Routine 01/06/2025 11:34 AM EDT 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) CBC + DIFF Routine 01/06/2025 11:34 AM EDT 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) CARDIAC 12/26/2024 9:51 AM EDT ECG COMPLETE 12/24/2024 10:33 AM EDT MAGNESIUM BLD Routine 12/24/2024 10:17 AM EDT 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) COMPREHENSIVE METABOLIC PANEL Routine 12/24/2024 10:16 AM EDT 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) CBC + DIFF Routine 12/24/2024 10:16 AM EDT 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) SPIROMETRY WITH DILATOR IF OBSTRUCTED Routine 12/23/2024 12:29 PM EDT Multiple lung nodules on CT History of primary non-small cell carcinoma of right lung S/P partial lobectomy of lung 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) History of melanoma LUNG VOLUMES Routine 12/23/2024 12:29 PM EDT Multiple lung nodules on CT History of primary non-small cell carcinoma of right lung S/P partial lobectomy of lung 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) History of melanoma LUNG DIFFUSION CAPACITY (DLCO) Routine 12/23/2024 12:29 PM EDT Multiple lung nodules on CT History of primary non-small cell carcinoma of right lung S/P partial lobectomy of lung 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) History of melanoma CT CHEST WO IVCON Routine 12/23/2024 11: 49 AM EDT Multiple lung nodules on CT CARDIAC 12/17/2024 10:11 AM EDT MAGNESIUM BLD Routine 12/16/2024 11:11 AM EDT 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 Shaker Out Information Breaker Tender: YVONNE. OCT Macula Interpretation Right Eye Abnormal foveal contour. Findings include RPE Irregularity, Atrophy. Left Eye Normal without fluid. Interval Change Right Eye Initial. Left Eye Initial. us Juventino See MD OPHTHALMOLOGY Final Result * OCT ANTERIOR SEGMENT SPECIAL ORDER (03/05/2025 9:19 AM EDT) Anatomical Region Laterality Modality Other Narrative 03/05/2025 10:51 AM EDT Date of Procedure 03/05/2025. Shaker Out Information Breaker Tender: YVONNE. Notes Few superficial scars left cornea us Juventino See MD OPHTHALMOLOGY Final Result * CORNEAL TOPOGRAPHY PENTACAM OU (BOTH EYES) (03/05/2025 8:44 AM EDT) Anatomical Region Laterality Modality Other Narrative 03/05/2025 10:51 AM EDT Date of Procedure 03/05/2025. Shaker Out Information Breaker Tender: Stop time: 8:43 AM. Astigmatism Right Eye Regular. Left Eye Regular. Interval Change Right Eye Intial . Left Eye Intial . us Juventino See MD OPHTHALMOLOGY Final Result * IR PORTOCATH REMOVAL (02/18/2025 1:29 PM EDT) Anatomical Region Laterality Modality Other 02/18/2025 1:29 PM EDT Impressions 02/18/2025 1:46 PM EDT IMPRESSION: SUCCESSFUL REMOVAL OF PORTED CATHETER. 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 MEDICATION RECONCILIATION: The patient's medications and allergies were reviewed in the electronic medical record and reconciled to the proposed procedure/treatment. BETI-PROCEDURE DISCUSSION: The appropriate elements of the pre-procedure discussion, safety check list and sign-out were performed. TIME OUT: A time out was performed immediately prior to procedure start with the nursing and interventional team, correctly identifying the name, date of , procedure, anatomy (including marking of site and side if applicable), patient position, procedure consent form, relevant diagnostic and radiology test results, antibiotic administration if applicable, safety precautions, and procedure-specific equipment needs. Start of procedure: 1225 End of procedure: 1252 Patient position: Supine Anesthesia: Local Patient monitoring: not applicable Local anesthesia: 1 % lidocaine Estimated Infiltration: 10 cc TECHNIQUE: The patient's chest and neck were prepped and draped using all elements of maximal sterile barrier technique (cap, mask, sterile gown, sterile gloves, a large sterile sheet, hand hygiene and cutaneous antisepsis). After local anesthesia, a small incision was made over the port reservoir and the catheter was removed with gentle traction after blunt and sharp dissection. Hemostasis was obtained by direct manual compression. Sponge count was verified and all sponges were accounted for. Incision was closed with interrupted deep 3.0 Vicryl sutures and a running subcuticular 3.0 Monocryl suture. Incision was covered with steri strips and a sterile dressing. The patient tolerated the procedure well. There were no significant complications and no other complications during the procedure. CONCLUSION: The patient was comfortable and discharged home in stable condition. Estimated Blood Loss: less than 3cc Number and Type of Removed Specimens: 1: Surgical pathology (port reservoir with catheter tip) ATTENDING RADIOLOGIST: None ADVANCED PRACTICE PROVIDER: Dylan Carias PA-C RECREATION LEADER: None The procedure was performed by the: advanced practice provider, without an assistant superintendent for curriculum. The advanced practice provider performed the following procedural activities: Entire procedure us Kayla Smith MD INTERVENTIONAL RADIOLOGY Roula shane Result * SURGICAL PATHOLOGY (02/18/2025 1:11 PM EDT) Case Report Surgical Pathology Report Case: [id number] Authorizing Provider: Dylan Carias PA-C Collected: 02/18/2025 01:11 PM Ordering Location: [place] [address] Received: 02/18/2025 05:01 PM Pathologist: Lizbeth Jacobs MD Specimen: Hardware/Device/F oreign Body, R CW port 02/19/2025 2:51 PM EDT [facility] FINAL DIAGNOSIS A. Chest, port, removal: - Unremarkable vascular port (gross examination only) HG/WE February 19, 2025 8:57 AM Gross examination performed at [facility], [address] [place] [address] 02/19/2025 2:51 PM EDT [facility] at 1451 EDT Gross Description A. Hardware/Device/F oreign Body Received fresh designated port is a vascular port with the inscription Bard [id number]. There is an attached white cylindrical tube that measures 21 cm in length. There is no tissue present. The specimen is reviewed by Dr. Jacobs. WE February 19, 2025 8:57 AM Gross examination performed at [facility], [address] [place] [address] 02/19/2025 2:51 PM EDT [facility] Clinical History leukemia 02/19/2025 2:51 PM EDT [facility] Performing Lab Diagnostic interpretation performed at: [facility], [address] [place] [address], [place] [address] [facility]# [id number] Procurement Agent: Luis Pittman MD 02/19/2025 2:51 PM EDT [facility] Tissue ELECTRONIC HARDWARE / Unknown 02/18/2025 1:11 PM EDT 02/18/2025 5:01 PM EDT us Dylan Carias PA-C SURGICAL PATHOLOGY Final Result [facility] [address] [facility] [address] [place] [address], [place] * (ABNORMAL) COMPREHENSIVE METABOLIC PANEL (02/18/2025 8:30 AM EDT) Only the most recent of4 resultswithin the time period is included. Protein, Total 6.7 6.3 - 8.0 g/dL 02/18/2025 9:02 AM EDT [facility] Albumin 4.4 3.9 - 4.9 g/dL 02/18/2025 9:02 AM EDT [facility] Calcium, Total 9.1 8.5 - 10.2 mg/dL 02/18/2025 9:02 AM EDT [facility] Bilirubin, Total 0.7 0.2 - 1.3 mg/dL 02/18/2025 9:02 AM EDT [facility] Alkaline Phosphatase 144(H) 34 - 123 U/L 02/18[facility]2025 [facility] AST 21 13 - 35 U/L 02/18/2025 9:02 AM EDT [facility] ALT 20 7 - 38 U/L 02/18/2025 9:02 AM EDT [facility] Glucose 96 74 - 99 mg/dL 02/18/2025 9:02 AM [facility] Comment: The [place] [employer] (ADA) provides guidance for cutoff values for fasting glucose and random glucose. The ADA defines fasting as no caloric intake for at least 8 hours. Fasting plasma glucose results between 100 to 125 mg/dL indicate increased risk for diabetes (prediabetes). Fasting plasma glucose results greater than or equal to 126 mg/dL meet the criteria for diagnosis of diabetes. In the absence of unequivocal hyperglycemia, results should be confirmed by repeat testing. In a patient with classic symptoms of hyperglycemia or hyperglycemic crisis, random plasma glucose results greater than or equal to 200 mg/dL meet the criteria for diagnosis of diabetes. Reference: Standards of Medical Care in Diabetes 2016, [place] [employer]. Diabetes Care. 2016.39(Suppl 1). BUN 18 7 - 21 mg/dL 02/18/2025 9:02 AM [facility] Creatinine 0.70 0.58 - 0.96 mg/dL 02/18/2025 9:02 AM [facility] Sodium 143 136 - 144 mmol/L 02/18/2025 9:02 AM [facility] Potassium 3.9 3.7 - 5.1 mmol/L 02/18/2025 9:02 AM [facility] Chloride 105 98 - 107 mmol/L 02/18/2025 9:02 AM [facility] CO2 27 22 - 30 mmol/L 02/18/2025 9:02 AM [facility] Anion Gap 11 8 - 15 mmol/L 02/18/2025 9:02 AM [facility] Estimated Glomerular Filtration Rate 100 >=60 mL/min/1.7 3m 02/18/2025 9:02 AM [facility] Comment:Estimated Glomerular Filtration Rate (eGFR) is calculated using the 2020 CKD-EPI creatinine equation. This equation utilizes serum creatinine, sex, and age as parameters. The creatinine assay has traceable calibration to isotope dilution- mass spectrometry. Refer to KDIGO guidelines for clinical interpretation. In patients with unstable renal function, e.g. those with acute kidney injury, the eGFR may not accurately reflect actual GFR. Blood BLOOD SPECIMEN / Unknown Port - Continuous Access Dev. / Unknown 02/18/2025 8:30 AM EDT 02/18/2025 8:31 AM EDT us Kayla Smith MD LABORATORY Final Result [facility] [address] [place] [address], * COMPLETE BLOOD COUNT AND DIFFERENTIAL (02/18/2025 8:30 AM EDT) Only the most recent of5 resultswithin the time period is included. WBC 5.88 3.70 - 11.00 k/uL 02/18/2025 8:38 AM EDT [facility] RBC 4.33 3.90 - 5.20 m/uL 02/18/2025 8:38 AM EDT [facility] Hemoglobin 13.5 11.5 - 15.5 g/dL 02/18/2025 8:38 AM EDT [facility] Hematocrit 38.5 36.0 - 46.0 % 02/18/2025 8:38 AM EDT [facility] MCV 88.9 80.0 - 100.0 fL 02/18/2025 8:38 AM EDT [facility] MCH 31.2 26.0 - 34.0 pg 02/18/2025 8:38 AM EDT [facility] MCHC 35.1 30.5 - 36.0 g/dL 02/18/2025 8:38 AM EDT [facility] RDW-CV 12.0 11.5 - 15.0 % 02/18/2025 8:38 AM EDT [facility] Platelet Count 184 150 - 400 k/uL 02/18/2025 8:38 AM EDT [facility] MPV 9.9 9.0 - 12.7 fL 02/18/2025 8:38 AM EDT [facility] Neutrophils % 59.8 % 02/18/2025 8:38 AM EDT [facility] Abs Neut 3.51 1.45 - 7.50 k/uL 02/18/2025 8:38 AM EDT [facility] Lymphocytes % 28.2 % 02/18/2025 8:38 AM EDT [facility] Abs Lymph 1.66 1.00 - 4.00 k/uL 02/18/2025 8:38 AM EDT [facility] Monocytes % 8.8 % 02/18/2025 8:38 AM EDT [facility] Abs Starke 0.52 <0.87 k/uL 02/18/2025 8:38 AM EDT [facility] Eosinophils % 2.4 % 02/18/2025 8:38 AM EDT [facility] Abs Eosin 0.14 <0.46 k/uL 02/18/2025 8:38 AM EDT [facility] Basophils % 0.5 % 02/18/2025 8:38 AM EDT [facility] Abs Baso 0.03 <0.11 k/uL 02/18/2025 8:38 AM EDT [facility] Immature Granulocytes % 0.3 % 02/18/2025 8:38 AM EDT [facility] Abs Immature Gran <0.03 <0.10 k/uL 025 8:38 AM EDT [facility] NRBC 0.0 /100 WBC 02/18/2025 8:38 AM EDT [facility] Absolute nRBC <0.01 <0.01 k/uL 02/18/2025 8:38 AM EDT [facility] Diff Type Auto 02/18/2025 8:38 AM EDT [facility] Blood BLOOD SPECIMEN / Unknown Port - Continuous Access Dev. / Unknown 02/18/2025 8:30 AM EDT 02/18/2025 8:31 AM EDT Kayla Smith MD LABORATORY Final Result Performing Organization Address City/State/[facility] Co de Phone Number [facility] [address] [place] [address], * DIAGNOSTIC BONE MARROW BIOPSIES & ASPIRATIONS (01/07/2025 10:48 AM EDT) Narrative Belgica Pineda APRN.DEVELOPMENT LEAD - 01/07/2025 10:48 AM EDT Belgica Pineda APRN.CNP 01/07/2025 10:52 AM BONE MARROW BIOPSY Date/Start Time: 01/07/2025 10:30 AM Date/Stop Time: 01/07/2025 10:45 AM Performed by: Belgica Pineda APRN.DEVELOPMENT LEAD Authorized by: Belgica Pineda APRN.CNP Where was Patient When this Procedure was Performed: [facility] Ambulatory Informed Consent Consent Obtained: Written [place] Protocol A moment to CARE was completed. SIGN IN Sign in communication not applicable due to emergent procedure. Personnel directly involved with the procedure wore the appropriate PPE. Special Equipment: Yes (On Control) Patient/Surrogate Stated/Verified: Patient name, Date of , Relevant allergies and Intended procedure TIME OUT Relevant labs, photos, and/or imaging studies have been reviewed. Consent documented and matches the intended procedure. Correct side/site marked and visible. Medications required for procedure verified. Fire risk assessed and interventions discussed. No implant(s) inserted. Pre-Procedure Details: The area was prepped with povidone Iodine (Betadine) and allowed to dry. A sterile partial body drape was applied following the usual aseptic technique. Medications: Local Anesthesia (see MAR): Lidocaine 2% (10 ml) Anxiolysis (see MAR): Lorazapem Procedure Details: Patient Position: Left lateral decubitus Aspiration Laterality: Unilateral Aspiration Site: Right posterior superior iliac crest Biopsy Laterality: Unilateral Biopsy Site: Right posterior sperior iliac crest OnControl biopsy system was used. Using aseptic technique, bone marrow aspiration was performed. A touch prep was taken. Core biopsy was obtained 1.3 (0.6, 0.7) cm. The core biopsy was confirmed. Number of External Insertion Sites: 1 Pressure dressing applied to Bone Marrow site(s). Hemostasis maintained. Post-Procedure Details: Patient Tolerance: Patient tolerated the procedure well with no immediate complications Estimated Blood Loss: scant Specimens Sent: bone marrow analysis, bone marrow chromosome analysis, DNA extraction and flow cytometry (PML RATNA) Teaching Complete: Bone Marrow Biopsy Post-procedure teaching complete Post-procedure care was reviewed and explained. Patient instructed to communicate complaints of redness, swelling, increased or unresolved pain, bleeding chills, bruising, and/or fever. Patient verbalized understanding. SIGN OUT All instruments, equipment, possible retained foreign bodies accounted for. Comments: Professional Bass Fisher: Gricel Carmona us Belgica Pineda SENIOR PROJECT ACCOUNTANT.DEVELOPMENT LEAD PROCEDURE Final R esult * FLOW CYTOMETRY FOR LEUKEMIA/LYMPHOMA (FCLL) REFLEX (01/07/2025 10:45 AM EDT) Interpretation There is no immunophenotypic evidence of involvement by a lymphoproliferative disorder or abnormal blast population. Correlation with the clinical and bone marrow histopathologic findings is suggested. January 09, 2025 5:36 PM EDT [facility] at 1724 EDT Results Specimen type: Bone marrow aspirate Morphology comments: See associated bone marrow pathology report [id number] . Viability: 95% Flow Cytometry Bone Marrow Immunophenotyping Marker Normal Cell Type Result (Lymphocytes) CD3 T-cells Normal Pattern CD4 T-cell subset Normal Pattern CD5 T-cells Normal Pattern CD7 T/NK-cells Normal Pattern CD8 T-cell subset Normal Pattern CD13 Myeloid Normal Pattern CD16/56 NK cells Normal Pattern CD19 B-cells Normal Pattern CD34 Blasts Normal Pattern CD45 Mann-leukocyte Normal Pattern kappa/lambda B-cells Normal Pattern Flow cytometric analysis of the bone marrow aspirate reveals that 6% of total events have the CD45 and light scatter properties of lymphocytes. The lymphocytes are composed of T-cells (72%, CD4:CD8 ratio = 0.61), NK cells (3%), and polytypic B-cells (25%). Few hematogones are present. Granulocytic elements are 72% of events. Blasts are not increased. 5:36 PM EDT [facility] Gross Description A. Bone Marrow Received 2 mL bone marrow in heparin. 5:36 PM EDT [facility] Diagnosis Comment This assay is not designed to detect minimal residual disease, plasma cell neoplasms, or myeloid antigen maturational patterns. This test was developed and its performance characteristics determined by [facility] Pathology and Laboratory Medicine [place] [facility] It has not been cleared or approved by the FDA. [facility] is regulated under CLIA as qualified to perform high-complexity testing. This test is used for clinical purposes. It should not be regarded as investigational or for research. 5:36 PM EDT [facility] Performing Lab Diagnostic interpretation performed at [facility], [address] [place], [place] [id number] CLIA# [id number] Procurement Agent: Luis Pittman M.D. 5:36 PM EDT [facility] Bone Marrow BONE MARROW SPECIMEN / Unknown 01/07/2025 10:45 AM EDT 01/07/2025 2:56 PM EDT us Kayla Smith MD SURGICAL PATHOLOGY Final Resu lt Performing Organization Address City/[facility] Co de Phone Number [facility] [address] [place] [address], [place] * FLOW CYTOMETRY FOR LEUKEMIA/LYMPHOMA (FCLL) PERFORMABLE (01/07/2025 10:45 AM EDT) Pathologist [facility] Flow Cytometry Order Status Results will be reported under F case ID when completed 01/07/2025 2:56 PM EDT [facility] Bone Marrow BONE MARROW SPECIMEN / Unknown 01/07/2025 10:45 AM EDT 01/07/2025 11:49 AM EDT us Kayla Smith MD LABORATORY Final Result Performing Organization Address [facility] [place] de Phone Number [facility] [address] [place] [address], [place] * DNA EXTRACTION BONE MARROW (BUFFY COAT) (01/07/2025 10:45 AM EDT) Pathologist [facility] DNA Extraction Bone Marrow (Buffy Coat) This specimen was received and successfully processed for future DNA purification should molecular testing be needed. Specimens will be available for 3 years from date of collection. To order testing on this specimen for [facility] patients, please place an [facility] order for DNA and RNA Clinical Testing ([id number]). To order testing for patients outside of the [facility] system, please request DNA and RNA for Clinical Testing, order code [id number]. If additional paperwork is required for testing, please send completed forms via secure email to [email or web address]. 01/11/2025 12:01 PM EDT [facility] Bone Marrow BONE MARROW SPECIMEN / Unknown 01/07/2025 10:45 AM EDT 01/07/2025 11:49 AM EDT us Kayla Smith MD LABORATORY Final Result Performing Organization Address City/[facility]/ZIP Co de Phone Number [facility] [address] [place] [address], * PML/RATNA RTPCR (01/07/2025 10:45 AM EDT) PML RATNA Bone Marrow 01/24/2025 5:12 PM EDT [facility] PML-RATNA Translocation See Note 01/24/2025 5:12 PM EDT [facility] Comment: Test RESULT UNITS REFERENCE RANGE (*=OUT OF RANGE) ---- ----- ------ --------- Specimen Source RNA Sample ID [id number] PML-RATNA transcript level 0.000 NCN Interpretation SEE BELOW Results reviewed by Mike Suggs, PhD, HCLD (ABB). The PML-RATNA fusion transcript associated with t(15;17) (q22;q21) is not detected by quantitative RT-PCR. Methodology and Interpretation PML-RATNA transcripts are associated with the t(15;17) chromosomal translocation seen in acute promyelocytic leukemia (APL). Quantitative RT-PCR is performed to detect the PML-RATNA fusion transcript based on standardized protocols developed by [employer] and [employer] (EAC) Program (Gabert et al, Leukemia 2003, 17:7644-7469). This assay detects the short form (bcr3), long form (bcr1) and the variant exon 6 (bcr2) PML-RATNA transcripts. PML-RATNA transcript levels are expressed as normalized copy number (NCN) of PML-RATNA using ABL1 as an internal control. Two or more positive PML-RATNA PCR tests (NCN greater than or equal to 1) after therapy are a strong predictor of subsequent hematologic relapse in APL. Repeatedly negative PCR results, defined as NCN less than 1, are associated with long-term survival in the majority of patients. The method of transcript quantitation in this assay has changed as of 04/24/2014. A PML-RATNA NCN of 10 in the current assay corresponds approximately to a PML-RATNA/ABL1 ratio of 0.001 in the old assay. The lower limit of PML-RATNA positive leukemia detection in this assay is dependent on the quality of RNA obtained and the cellularity of the sample. Analytic assay sensitivity is determined at 1:100,000. This assay is a PCR-based test. Since genetic variation and other problems can affect the accuracy of PCR based testing, the results should always be interpreted in light of clinical data. This test is performed pursuant to a license agreement with [employer] This test was developed and its analytical performance characteristics have been determined by [facility]. It has not been cleared or approved by FDA. This assay has been validated pursuant to the CLIA regulations and is used for clinical purposes. This test was performed at [facility], [facility] [address] [place] [address] CLIENT SERVICES- Director: Juanita Puga M.D., Ph.D. PML-RATNA Translocation, Q See Note 01/24/2025 5:12 PM EDT [employer] Comment: Performed By: [facility] [address] [place] [address] Procurement Agent: Han Dean MD, PhD CLIA Number: [id number] Bone Marrow BONE MARROW SPECIMEN / Unknown 01/07/2025 10:45 AM EDT 01/07/2025 11:49 AM EDT Kayla Smith MD LABORATORY Final Result [employer] [address] [place] [address] * BONE MARROW ANALYSIS (01/07/2025 10:45 AM EDT) Case Report Bone Marrow Patholog y Report Case: [id number] Authorizing Provider: Kayla Smith MD Collected: 01/07/2025 10:45 AM Ordering Location: Hematology/Oncology Received: 01/07/2025 11:49 AM Pathologist: Bell Umaña MD Specimens: A) - Bone Marrow, Aspirate, Right, Posterior, Iliac Crest B) - Bone Marrow, Biopsy, Right, Posterior, Iliac Crest C) - Bone Marrow, Clot, Right, Posterior, Iliac Crest D) - Blood 01/09/2025 5:36 PM EDT [facility] FINAL DIAGNOSIS A-C. Bone marrow, aspirate smear, touch imprint and core biopsy, with clot section: - Normocellular bone marrow with trilineage hematopoiesis. - Lymphoid aggregate present, favor reactive. - Stainable iron is present. - See comment. D. Peripheral blood smear: - No diagnostic abnormalities. 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 Morphologic review demonstrates a normocellular bone marrow for age (approximately 40%) showing maturing trilineage hematopoiesis with no overt morphologic evidence of dysplasia or increased blasts. Flow cytometric immunophenotypic studies do not show evidence of a lymphoproliferative disorder or increase CD34 positive blasts ([id number]). Overall, there is no morphologic evidence of residual acute promyelocyte leukemia, however correlation with the results of the pending quantitative RT-PCR studies for PML-RATNA is essential to rule out presence of minimal residual disease. Correlation with the clinical findings and the results of the pending cytogenetic and molecular studies is suggested. 01/09/2025 5:36 PM EDT [facility] Microscopic Description PERIPHERAL BLOOD: CBC (01/06/2025 11:34 AM) Diff: Auto WBC 6.79 k/uL Neutrophils % 69.4 Hemoglobin 13.4 g/dL Lymphocytes % 20.8 MCV 91.5 fL Monocytes % 5.7 RDW-CV 13.5 % Eosinophils % 3.4 Platelet Count 195 k/uL Basophils % 0.3 Immature Granulocytes % 0.4 Morphology/Interpreta tion: Morphologically unremarkable peripheral blood smear. BONE MARROW ASPIRATE: Result Normal Range 1 % Blasts 0-2 1 % Promyelocytes 1-5 64 % Myelos/Metas/Bands/Se gs 32-72 2 % Eosinophils 1-6 0 % Basophils 0-1 3 % Monocytes 0-4 21 % Erythroid precursors 13-37 8 % Lymphocytes 7-23 0 % Plasma cells 0-2 Myeloid/Erythro (1.5-4): 3.4 Cells counted: 300. Iron stain result: Stainable iron is present. No ring sideroblasts seen. Specimen Quality: Adequately spicular and cellular. Megakaryocytes: Present, largely unremarkable morphology. Erythropoiesis: Progressive maturation. Granulopoiesis: Progressive maturation. Other: Blasts and promyelocytes are not increased. BONE MARROW BIOPSY: Adequacy: Suboptimal, due to small size, fragmentation and aspiration artifact. Cellularity: Relatively normal, approximately 40%. ME ratio: Normal. Hematopoiesis: Trilineage hematopoiesis. Megakaryocytes: Adequate. Megakaryocyte morphology: Largely unremarkable morphology. Lymphoid infiltrate: No aggregates. Bone trabeculae: Unremarkable. Other: Hemosiderin laden macrophages present. CLOT SECTION: Marrow particles: Many. Morphology: Superior to biopsy. Other: Occasional lymphoid aggregate is seen predominantly composed of small lymphocytes and few histiocytes, favor reactive. Hemosiderin-laden macrophages present. ANCILLARY TESTS: Flow cytometry: Performed, see associated flow cytometry report [id number] . Cytogenetics: Pending. FISH: Not performed. Molecular: PML::RATNA quantitative RT-PCR studies pending. Buffy coat stored. 01/09/2025 5:36 PM EDT [facility] Gross Description A. Bone Marrow, Aspirate, Right, Posterior, Iliac Crest Received are air-dried bone marrow aspirate smears. Submitted for light microscopy. B. Bone Marrow, Biopsy, Right, Posterior, Iliac Crest Received in formalin are two segments of cylindrical tissue aggregating to 1.9 x 0.5 x 0.3 cm, red-brown and of a firm consistency. Totally submitted in formalin in one cassette after decalcification. C. Bone Marrow, Clot, Right, Posterior, Iliac Crest Received in formalin are multiple segments of red-brown hemorrhagic material aggregating to 2.4 x 1.5 x 0.5 cm. Totally submitted in one cassette. D. Blood Received is a peripheral blood smear. Submitted for light microscopy. Gross examination performed at [facility], [address] [place] [address] January 07, 2025 7:39 PM 01/09/2025 5:36 PM EDT [facility] Performing Lab Diagnostic interpretation performed at: [facility], [address] [place] [address], [facility] [place] [address] CLIA# [id number] Procurement Agent: Luis Pittman MD 01/09/2025 5:36 PM EDT [facility] Disclaimer Laboratory Developed Test (LDT) Disclaimer: Performance characteristics of immunohistochemical, immunofluorescent, and chromogenic in-situ hybridization tests have been determined by the performing laboratory within [facility] Medicine Department ([facility], [facility], [facility], [facility], [facility], [facility], or [facility]) in a manner consistent with CLIA requirements. One or more of these tests may not have been cleared or approved by the FDA. [facility] is regulated under CLIA as qualified to perform high-complexity testing. These tests are used for clinical purposes. These should not be regarded as investigational or for research. Positive and negative controls stain appropriately. 01/09/2025 5:36 PM EDT [facility] Bone Marrow BLOOD SPECIMEN / Unknown 01/07/2025 10:45 AM EDT 01/07/2025 11:49 AM EDT Bone marrow specimen (specimen) SPECIMEN FROM BONE MARROW OBTAINED BY BIOPSY / Unknown 01/07/2025 10:45 AM EDT 01/07/2025 11:49 AM EDT Bone marrow specimen (specimen) SPECIMEN FROM BONE MARROW OBTAINED BY ASPIRATION / Unknown 01/07/2025 10:45 AM EDT 01/07/2025 11:49 AM EDT Bone marrow specimen (specimen) BLOOD SPECIMEN / Unknown 01/07/2025 10:45 AM EDT 01/07/2025 1:27 PM EDT Kayla Smith MD LABORATORY Final Result [facility] [place] [address], * BONE MARROW CHROMOSOME ANAL (01/07/2025 10:45 AM EDT) Pathologist [facility] Accession Number: [id number] Doctor: KAYLA SMITH Pathologist: [facility] No: [id number] Clinical diagnosis: Acute promyelocytic leukemia Specimen Type: Bone marrow Received Date: 01/07/2025 Number of cells counted: 20 Number of cells analyzed: 20 Number of cells karyotyped: 20 Banding resolution: 400 Banding method: G-banding DIAGNOSIS: 46,XX[20] INTERPRETATION: Normal, female karyotype COMMENT: Ten metaphase cells were analyzed from the culture supplemented with GM-CSF and ten metaphase cells were analyzed from the 24 hour unstimulated culture. Twenty cells analyzed showed a 46,XX karyotype. There was no significant numerical chromosome abnormality and no structural change detected within the limits of resolution. Clinical and pathologic correlation is recommended. Interpretation performed by Angélica Mederos, PhD Performed by [facility] ([id number]), Division of Laboratory Medicine [facility] Department of Pathology & Laboratory Medicine, Diagnostics [place] [address] [place] [address] Toll free: 01/15/2025 12:15 PM EDT [facility] Bone Marrow BONE MARROW SPECIMEN / Unknown 01/07/2025 10:45 AM EDT 01/07/2025 11:49 AM EDT Kayla Smith MD LABORATORY Final Result Performing Organization Address City/[facility]/ZIP Co de Phone Number [facility] [address] [facility] [place] [address], * CARDIAC (12/26/2024 9:51 AM EDT) Narrative 12/26/2024 9:51 AM EDT Ordered by an unspecified provider. [facility] Provider CARDIOLOGY Final Result * MAGNESIUM (12/24/2024 10:17 AM EDT) Only the most recent of2 resultswithin the time period is included. Magnesium 2.2 1.7 - 2.3 mg/dL 12/24/2024 11:37 AM EDT [facility] Blood BLOOD SPECIMEN / Unknown Port - Continuous Access Dev. / Unknown 12/24/2024 10:17 AM EDT 12/24/2024 10:46 AM EDT Bernard Garrett MD LABORATORY Final Re sult [facility] [address] [place] [address] * LUNG DIFFUSION CAPACITY (DLCO) (12/23/2024 12:29 PM EDT) 12/23/2024 12:2 9 PM EDT Narrative PULMONARY FUNCTION LAB - 01/01/2025 2:44 PM EDT [facility] [address] [place] [address] Test Date: 2024-12-23 Pat Name: AMINTA GARCIA Department: Room: Gender: Female Shaker Out: : 1965 Requested By: Order Number: [id number] Reading MD: Ky De Leon MD Interpretive Statements Spirometry: Current ATS/ERS acceptability and repeatability standards for spirometry met. Start of test and EOFE criteria met. Lung Volumes: The TGVs are repeatable X 3. The RVs and TLCs are repeatable X 2. DLCO: Current ATS/ERS acceptability and repeatability standards for DLCO met with 2 acceptable maneuvers. DLCO is hemoglobin corrected. Hemoglobin obtained from [facility] on 12/16/2024.//Ag IMPRESSION: Spirometry shows no obstruction. The TLC is reduced indicating restriction. The diffusing capacity corrected for hemoglobin is mildly reduced. The presence of a reduced lung diffusion capacity - that normalizes when measured independent of alveolar volume (kCO) is consistent with a nonparenchymal disorder but does not rule out parenchymal or pulmonary vascular disorder. Electronically Signed On 01-01-2025 14:44:39 EDT by Ky De Leon MD ID: [id number] Name: AMINTA GARCIA Race: White Ht: 65.87 in Wt: 171.30 lbs Age: 59 Gender: Female : 1965 Dx: Other nonspecific abnormal finding of lung field Smoking Hx: Non-smoker Doctor: JOSE GRAYSON Test Date: 12/23/2024 Site: Tech: Kylee Edmondson PRE-BRONCH POST-BRONCH Antonino LLN Pred ULN %Pred ZScore Antonino %Pred %Chg ZScore SPIROMETRY FVC 1.91 2.35 3.23 4.14 59 -2.50 FEV1 1.34 1.84 2.56 3.24 52 -2.72 FEV1/FVC 0.70 0.68 0.80 0.89 88 -1.33 FEFMax 4.06 4.80 6.62 8.43 61 -2.32 FEF50 1.07 1.90 3.51 5.12 30 -2.49 FIF50 2.40 FEF50/FIF50 0.45 90-100 FIVC 1.85 [id number] 0.69 1.23 2.39 3.94 29 -2.70 ExpiredTime 8.68 TimeToFEFMax 0.10 KETTY 0.05 VolExtrap% 3 LUNG VOLUMES FRC(Pleth) 1.68 2.16 3.02 3.89 55 -2.58 ERV 0.58 1.08 53 RV(Pleth) 1.10 1.44 2.07 2.70 53 -2.55 SVC 1.86 2.35 3.23 4.14 57 -2.59 IC 1.27 2.15 58 TLC(Pleth) 2.95 4.45 5.33 6.22 55 -4.46 RV/TLC(Pleth) 37 30 39 48 95 -0.34 LUNG DIFFUSION DLCOunc 15.57 16.28 22.45 28.62 69 -1.84 DLCOStdPB 15.36 16.28 22.45 28.62 68 -1.89 DLCORefHb 15.36 21.80 70 VA 3.12 4.27 5.37 6.47 58 -3.36 Kco 5.15 3.21 4.15 5.21 124 1.55 Hgb 12.50 12-18 Comments: Spirometry: Current ATS/ERS acceptability and repeatability standards for spirometry met. Start of test and EOFE criteria met. Lung Volumes: The TGVs are repeatable X 3. The RVs and TLCs are repeatable X 2. DLCO: Current ATS/ERS acceptability and repeatability standards for DLCO met with 2 acceptable maneuvers. DLCO is hemoglobin corrected. Hemoglobin obtained from [facility] on 12/16/2024.//Ag us Jose Grayson MD SCHEDULED PROCEDURES Final Re sult [facility] [address] [place] [address] * LUNG VOLUMES (12/23/2024 12:29 PM EDT) 12/23/2024 12:2 9 PM EDT Narrative [facility] - 01/01/2025 2:44 PM EDT [facility] [address] [place] [address] Test Date: 2024-12-23 Pat Name: AMINTA GARCIA Department: Room: Gender: Female Shaker Out: : 1965 Requested By: Order Number: [id number] Reading MD: Ky De Leon MD Interpretive Statements Spirometry: Current ATS/ERS acceptability and repeatability standards for spirometry met. Start of test and EOFE criteria met. Lung Volumes: The TGVs are repeatable X 3. The RVs and TLCs are repeatable X 2. DLCO: Current ATS/ERS acceptability and repeatability standards for DLCO met with 2 acceptable maneuvers. DLCO is hemoglobin corrected. Hemoglobin obtained from [facility] on 12/16/2024.//Ag IMPRESSION: Spirometry shows no obstruction. The TLC is reduced indicating restriction. The diffusing capacity corrected for hemoglobin is mildly reduced. The presence of a reduced lung diffusion capacity - that normalizes when measured independent of alveolar volume (kCO) is consistent with a nonparenchymal disorder but does not rule out parenchymal or pulmonary vascular disorder. Electronically Signed On 01-01-2025 14:44:39 EDT by Ky De Leon MD ID: [id number] Name: AMINTA GARCIA Race: White Ht: 65.87 in Wt: 171.30 lbs Age: 59 Gender: Female : 1965 Dx: Other nonspecific abnormal finding of lung field Smoking Hx: Non-smoker Doctor: JOSE GRAYSON Test Date: 12/23/2024 Site: Tech: Kylee Edmondson PRE-BRONCH POST-BRONCH Antonino LLN Pred ULN %Pred ZScore Antonino %Pred %Chg ZScore SPIROMETRY FVC 1.91 2.35 3.23 4.14 59 -2.50 FEV1 1.34 1.84 2.56 3.24 52 -2.72 FEV1/FVC 0.70 0.68 0.80 0.89 88 -1.33 FEFMax 4.06 4.80 6.62 8.43 61 -2.32 FEF50 1.07 1.90 3.51 5.12 30 -2.49 FIF50 2.40 FEF50/FIF50 0.45 90-100 FIVC 1.85 [id number] 0.69 1.23 2.39 3.94 29 -2.70 ExpiredTime 8.68 TimeToFEFMax 0.10 KETTY 0.05 VolExtrap% 3 LUNG VOLUMES FRC(Pleth) 1.68 2.16 3.02 3.89 55 -2.58 ERV 0.58 1.08 53 RV(Pleth) 1.10 1.44 2.07 2.70 53 -2.55 SVC 1.86 2.35 3.23 4.14 57 -2.59 IC 1.27 2.15 58 TLC(Pleth) 2.95 4.45 5.33 6.22 55 -4.46 RV/TLC(Pleth) 37 30 39 48 95 -0.34 LUNG DIFFUSION DLCOunc 15.57 16.28 22.45 28.62 69 -1.84 DLCOStdPB 15.36 16.28 22.45 28.62 68 -1.89 DLCORefHb 15.36 21.80 70 VA 3.12 4.27 5.37 6.47 58 -3.36 Kco 5.15 3.21 4.15 5.21 124 1.55 Hgb 12.50 12-18 Comments: Spirometry: Current ATS/ERS acceptability and repeatability standards for spirometry met. Start of test and EOFE criteria met. Lung Volumes: The TGVs are repeatable X 3. The RVs and TLCs are repeatable X 2. DLCO: Current ATS/ERS acceptability and repeatability standards for DLCO met with 2 acceptable maneuvers. DLCO is hemoglobin corrected. Hemoglobin obtained from [facility] on 12/16/2024.//Ag us Jose Grayson MD SCHEDULED PROCEDURES Final Re sult [facility] [address] [place] [id number] * SPIROMETRY WITH DILATOR IF OBSTRUCTED (12/23/2024 12:29 PM EDT) FVC PRE (L) 1.91 L [facility] FVC PREDICTED (L) 3.23 L [facility] FVC LLN (L) 2.35 L [facility] FVC ULN (L) 4.14 L [facility] FEV1 PRE (L) 1.34 L [facility] FEV1 PREDICTED (L) 2.56 L [facility] FEV1 LLN (L) 1.84 L [facility] FEV1 ULN (L) 3.24 L [facility] FEV1/FVC PRE (%) 70 % [facility] FEV1/FVC PREDICTED (%) 80 % [facility] FEV1/FVC LLN (%) 68 % [facility] FEF25% PRE (L/S) 3.11 L/S [facility] FEF75% PRE (L/S0 0.21 L/S [facility] FEF75% PREDICTED (L/S) 0.70 L/S [facility] FEF75% LLN (L/S) 0.28 L/S [facility] FEF75% ULN (L/S) 1.63 L/S [facility] VHT16-55% PRE (L/S) 0.69 L/S [facility] ZZU54-15% PREDICTED (L/S) 2.39 L/S [facility] SQB35-09% LLN (L/S) 1.23 L/S [facility] PEF PRE (L/S) 4.06 L/S [facility] PEF LLN (L/S) 4.80 L/S [facility] PEF ULN (L/S) 8.43 L/S [facility] VC (L) BOX 1.86 L [facility] SVC PREDICTED (L) 3.23 L/S [facility] SVC LLN (L) 2.35 L/S [facility] SVC ULN (L) 4.14 L/S [facility] IC BOX (L) 1.27 L [facility] IC PREDICTED (L) 2.15 L/S [facility] ERV BOX (L) 0.58 L [facility] ERV PREDICTED (L) 1.08 L/S [facility] DLCO (ml/min/mmHg) 15.57 ml/min/mmH g [facility] DLCO PREDICTED (ml/min/mmHg) 22.45 ml/min/mmH g [facility] DLCO LLN (ml/min/mmHg) 16.28 ml/min/mmH g [facility] DLCO ULN (ml/min/mmHg) 28.62 ml/min/mmH g [facility] FET PRE (S) 8.68 S [facility] FRC Box (L) 1.68 L [facility] RV Box (L) 1.10 L [facility] RV Box PREDICTED (L) 2.07 L [facility] TLC Box (L) 2.95 L [facility] TLC Box PREDICTED (L) 5.33 L [facility] RV/TLC Box (%) 37 % [facility]UL[facility] RV/TLC Box PREDICTED (%) 39 % [facility] VA (L) 3.12 L [facility] VA PREDICTED (L) 5.37 L [facility] DLCO/VA (ml/min/mmHg/L) 0.05 ml/min/mmH g/L [facility] DLCO/VA PREDICTED (ml/min/mmHg/L) 0.04 ml/min/mmH g/L [facility] DLCOcor (ml/min/mmHg) 16.03 ml/min/mmH g [facility] DLCOcor PREDICTED (ml/min/mmHg) 22.45 ml/min/mmH g [facility] DLCO/VAcor (ml/min/mmHg/L) 0.05 ml/min/mmH g/L [facility] 12/23/2024 12:2 9 PM EDT Narrative [facility] - 01/01/2025 2:44 PM EDT [facility] [address] [place] [address] Test Date: 2024-12-23 Pat Name: AMINTA GARCIA Department: Room: Gender: Female Shaker Out: : 1965 Requested By: Order Number: [id number] Reading MD: Ky De Leon MD Interpretive Statements Spirometry: Current ATS/ERS acceptability and repeatability standards for spirometry met. Start of test and EOFE criteria met. Lung Volumes: The TGVs are repeatable X 3. The RVs and TLCs are repeatable X 2. DLCO: Current ATS/ERS acceptability and repeatability standards for DLCO met with 2 acceptable maneuvers. DLCO is hemoglobin corrected. Hemoglobin obtained from [facility] on 12/16/2024.//Ag IMPRESSION: Spirometry shows no obstruction. The TLC is reduced indicating restriction. The diffusing capacity corrected for hemoglobin is mildly reduced. The presence of a reduced lung diffusion capacity - that normalizes when measured independent of alveolar volume (kCO) is consistent with a nonparenchymal disorder but does not rule out parenchymal or pulmonary vascular disorder. Electronically Signed On 01-01-2025 14:44:39 EDT by Ky De Leon MD ID: [id number] Name: AMINTA GARCIA Race: White Ht: 65.87 in Wt: 171.30 lbs Age: 59 Gender: Female : 1965 Dx: Other nonspecific abnormal finding of lung field Smoking Hx: Non-smoker Doctor: JOSE GRAYSON Test Date: 12/23/2024 Site: Tech: Kylee Edmondson PRE-BRONCH POST-BRONCH Antonino LLN Pred ULN %Pred ZScore Antonino %Pred %Chg ZScore SPIROMETRY FVC 1.91 2.35 3.23 4.14 59 -2.50 FEV1 1.34 1.84 2.56 3.24 52 -2.72 FEV1/FVC 0.70 0.68 0.80 0.89 88 -1.33 FEFMax 4.06 4.80 6.62 8.43 61 -2.32 FEF50 1.07 1.90 3.51 5.12 30 -2.49 FIF50 2.40 FEF50/FIF50 0.45 90-100 FIVC 1.85 XYU76-72 0.69 1.23 2.39 3.94 29 -2.70 ExpiredTime 8.68 TimeToFEFMax 0.10 KETTY 0.05 VolExtrap% 3 LUNG VOLUMES FRC(Pleth) 1.68 2.16 3.02 3.89 55 -2.58 ERV 0.58 1.08 53 RV(Pleth) 1.10 1.44 2.07 2.70 53 -2.55 SVC 1.86 2.35 3.23 4.14 57 -2.59 IC 1.27 2.15 58 TLC(Pleth) 2.95 4.45 5.33 6.22 55 -4.46 RV/TLC(Pleth) 37 30 39 48 95 -0.34 LUNG DIFFUSION DLCOunc 15.57 16.28 22.45 28.62 69 -1.84 DLCOStdPB 15.36 16.28 22.45 28.62 68 -1.89 DLCORefHb 15.36 21.80 70 VA 3.12 4.27 5.37 6.47 58 -3.36 Kco 5.15 3.21 4.15 5.21 124 1.55 Hgb 12.50 12-18 Comments: Spirometry: Current ATS/ERS acceptability and repeatability standards for spirometry met. Start of test and EOFE criteria met. Lung Volumes: The TGVs are repeatable X 3. The RVs and TLCs are repeatable X 2. DLCO: Current ATS/ERS acceptability and repeatability standards for DLCO met with 2 acceptable maneuvers. DLCO is hemoglobin corrected. Hemoglobin obtained from [facility] on 12/16/2024.//Ag us Jose Grayson MD SCHEDULED PROCEDURES Final Re sult [facility] [address] [place] [address] * CT CHEST WO IVCON (12/23/2024 11:49 AM EDT) Anatomical Region Laterality Modality Chest Computed Tomogra phy 12/23/2024 11:4 9 AM EDT Impressions 12/23/2024 1:55 PM EDT IMPRESSION: Stable postoperative changes of right lower lobectomy with associated volume loss. Right lung fibrotic changes, which may be postoperative or related to prior radiation. New indeterminate 10 mm anterior left lower lobe groundglass nodule. Resolution of the previously seen right lung solid nodules and left lung nonsolid nodule, as described. Continued attention on follow-up. Stable 13 mm part solid nodule with cystic lucencies in the left apex, which may represent lesion along the adenocarcinoma spectrum. Continued attention on follow-up. No thoracic lymphadenopathy. 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 Nonsmall cell lung cancer status post right lower lobectomy (2008). Lung nodule follow-up. Technique: Spiral CT acquisition of the chest from the thoracic inlet to the upper abdomen without contrast. MQ: CTCWO_6 CT Radiation dose: Integrated Dose-length product (DLP) for this visit = 217 mGy*cm CT Dose Reduction Employed: Automated exposure control (AEC) Comparison: Type of study and date/time RESULT: Limitations: None. Lines, tubes, and devices: Left chest wall chemotherapy port with tip in the right atrium. Lung parenchyma and airways: Postoperative changes of right lower lobectomy with associated volume loss. Scarring resulting in traction bronchiectasis and architectural distortion in the right upper lobe and posteriolateral middle lobe, unchanged. The previously seen 2-4 mm nodules in the right lower lobe and middle lobe have resolved in the interim, suggesting benign infectious/inflammatory etiology. Stable 13 mm part solid nodule with cystic lucencies in the left apex (4:34). Stable 2-3 mm subpleural nodule in the left apex (4:35). Resolution of the previously seen 5 mm nonsolid nodule in the left upper lobe. Interval development of 10 mm anterior left lower lobe groundglass nodule (4:141). The central airways are patent. Pleural space: No pleural effusion. Stable pleural thickening with calcification along the right posterior costophrenic recess. Lower neck, lymph nodes, and mediastinum: The imaged thyroid gland is normal. No lymphadenopathy in the supraclavicular, axillary, mediastinal, or hilar regions. Heart, pericardium, and thoracic vessels: The thoracic aorta and main pulmonary artery are normal in caliber. Mild thoracic aorta and proximal arch branch vessel atherosclerotic calcifications. The cardiac chambers are normal in size. Multivessel coronary artery atherosclerotic calcifications are noted, although the study is not optimized for coronary assessment. No pericardial effusion or thickening. Bones and soft tissues: No destructive bone lesion. Thoracic degenerative changes. Partial osseous bridging between the lateral right sixth and seventh ribs, likely related to prior thoracostomy. Resolution of the previously seen nodular densities in the chest wall. Chest wall is otherwise unremarkable. Upper abdomen: No acute abnormality in the imaged upper abdomen. Cholelithiasis. Localizer images: No additional findings. 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 Nonsmall cell lung cancer status post right lower lobectomy (2008). Lung nodule follow-up. Technique: Spiral CT acquisition of the chest from the thoracic inlet to the upper abdomen without contrast. MQ: CTCWO_6 CT Radiation dose: Integrated Dose-length product (DLP) for this visit = 217 mGy*cm CT Dose Reduction Employed: Automated exposure control (AEC) Comparison: Type of study and date/time RESULT: Limitations: None. Lines, tubes, and devices: Left chest wall chemotherapy port with tip in the right atrium. Lung parenchyma and airways: Postoperative changes of right lower lobectomy with associated volume loss. Scarring resulting in traction bronchiectasis and architectural distortion in the right upper lobe and posteriolateral middle lobe, unchanged. The previously seen 2-4 mm nodules in the right lower lobe and middle lobe have resolved in the interim, suggesting benign infectious/inflammatory etiology. Stable 13 mm part solid nodule with cystic lucencies in the left apex (4:34). Stable 2-3 mm subpleural nodule in the left apex (4:35). Resolution of the previously seen 5 mm nonsolid nodule in the left upper lobe. Interval development of 10 mm anterior left lower lobe groundglass nodule (4:141). The central airways are patent. Pleural space: No pleural effusion. Stable pleural thickening with calcification along the right posterior costophrenic recess. Lower neck, lymph nodes, and mediastinum: The imaged thyroid gland is normal. No lymphadenopathy in the supraclavicular, axillary, mediastinal, or hilar regions. Heart, pericardium, and thoracic vessels: The thoracic aorta and main pulmonary artery are normal in caliber. Mild thoracic aorta and proximal arch branch vessel atherosclerotic calcifications. The cardiac chambers are normal in size. Multivessel coronary artery atherosclerotic calcifications are noted, although the study is not optimized for coronary assessment. No pericardial effusion or thickening. Bones and soft tissues: No destructive bone lesion. Thoracic degenerative changes. Partial osseous bridging between the lateral right sixth and seventh ribs, likely related to prior thoracostomy. Resolution of the previously seen nodular densities in the chest wall. Chest wall is otherwise unremarkable. Upper abdomen: No acute abnormality in the imaged upper abdomen. Cholelithiasis. Localizer images: No additional findings. IMPRESSION IMPRESSION: Stable postoperative changes of right lower lobectomy with associated volume loss. Right lung fibrotic changes, which may be postoperative or related to prior radiation. New indeterminate 10 mm anterior left lower lobe groundglass nodule. Resolution of the previously seen right lung solid nodules and left lung nonsolid nodule, as described. Continued attention on follow-up. Stable 13 mm part solid nodule with cystic lucencies in the left apex, which may represent lesion along the adenocarcinoma spectrum. Continued attention on follow-up. No thoracic lymphadenopathy. Manganese Heater: PSCB Transcribe Date/Time: Dec 23 2024 12:37P Dictated by : FRANCO MULTANI MD This examination was interpreted and the report reviewed and electronically signed by: JOHANNE SNYDER MD on Dec 23 2024 1:53PM EST Jose Grayson MD CT-PAMA Final Result * CARDIAC (12/17/2024 10:11 AM EDT) Narrative 12/17/2024 10:11 AM EDT Ordered by an unspecified provider. [facility] CARDIOLOGY Final Result from Last 3 Months Insurance BLUE CARD PPO OOS Care Teams Dietetic Assistant Relationship Specialty Start Date End Date Mike Moya Sr., PCP - General Family Medicine 01/09/15 July Renee, SENIOR PROJECT ACCOUNTANT.DEVELOPMENT LEAD [address] [place] [address] Nurse Practitioner Hematology/Oncology 05/16/24 Stephanie Carter, RN [address] [address] Specialty Surface Water Manager Hematology/Oncology 05/16/24 Sofia Lay LSW Buyer Agent 06/20/24 Opal Barbosa, [facility] Specialty Surface Water Manager Hematology/Oncology 11/10/24
--- OUTSIDE RECORDS SUMMARY | 2025-03-13 08:27 | XMS_ITS | Clinical Summary ---
Author Organization [facility] Address [id number] [place] [address] Care Team Providers Care Form Tamper Operator Name Role Phone Mike Moya DO Primary Care Provider Allergies No known active allergies Medications lisinopril (PRINIVIL,ZESTR IL) 20 mg tablet Take 20 mg by mouth daily. Active fexofenadine (NERIS) 180 mg tablet Take 180 mg by mouth daily. Active citalopram (CeleXA) 20 mg tablet Take 20 mg by mouth daily. Active cyanocobalamin (vitamin B-12) 100 MCG tablet Take 100 mcg by mouth daily. Active cholecalciferol , vitamin D3, 400 units tablet Take 400 Units by mouth daily. Active jrxticyp-ccxv-A A-calcium &mins (THERAGRAN-M) 9 mg iron-400 mcg tablet Take 1 tablet by mouth daily. Active pantoprazole (PROTONIX) 20 mg EC tablet Take 20 mg by mouth daily as needed for heartburn. Active pregabalin (LYRICA) 75 mg capsule Take 75 mg by mouth 3 (three) times a day. 2 tabs in the morning, 1 at noon, 2 in the evening Active Family History Medical History Relation Name Comments Heart disease Father Hypertension Mother Relation Name Status Comments Father Mother Alive Social History Tobacco Use Types Packs/Day Years Used Date Smoking Tobacco: Former Cigarettes Q uit: 2008 Smokeless Tobacco: Never Alcohol Use Standard Drinks/Week Comments Never 0 (1 standard drink = 0.6 oz pur e alcohol) AUDIT-C Answer Date Recorded Frequency of Alcohol Consumption Never 08/28/2019 Average Number of Drinks Not on file 020 Frequency of Binge Drinking Not on file 08/08 PHQ-2 Answer Date Recorded Total Score 0 05/05/2020 Childcare Answer Date Recorded Childcare Unknown 01/16/2019 Employment Answer Date Recorded Employment Unknown 01/16/2019 Purpose - Life Answer Date Recorded Purpose and direction in life Unknown Comments No Sex and Gender Information Value Date Recorded Sex Assigned at Not on file Legal Sex Female 5:01 PM EDT Gender Identity Not on file Sexual Orientation Not on file Last Filed Vital Signs Vital Sign Reading Time Taken Comments Blood Pressure 127/71 05/27/2020 8:50 AM EDT Pulse 80 05/27/2020 8:50 AM EDT Temperature 36.6 C (97.8 F) 05/27/2020 6:30 AM EDT Respiratory Rate 17 05/27/2020 8:50 AM EDT Oxygen Saturation 98% 05/27/2020 8:50 AM EDT Inhaled Oxygen Concentration - - Weight 86.2 kg (190 lb) 05/27/2020 6:30 AM EDT Height 167.6 cm (5' 5.98 ) 05/27/2020 6:30 AM ED T Body Mass Index 30.68 05/27/2020 6:30 AM EDT Plan of Treatment Health Maintenance Due Date Last Done Comments Depression Screening 1977 Tobacco Screening 1977 Adult BMI Screening 1983 DTaP,Tdap and Td Vaccines (1 - Tdap) 1984 Zoster (Shingles) Vaccine (1 of 2) 2015 Influenza Vaccine 04/07/2025 05/16/2024, 05/23/2013 Medical Devices Not on file Insurance [employer] Care Teams Form Tamper Operator Relationship Specialty Start Date End Date Mike Moya DO PCP - General Family Medicine 08/28/19
--- OUTSIDE RECORDS SUMMARY | 2025-03-13 08:27 | XMS_ITS | Encounter Summary ---
Author Organization [facility] Address [address] [place] [address] Care Team Providers Care Service Planner Name Role Phone House Sr., Mike SANCHEZ Primary Care Provider + Bernard Garrett MD Unavailable Unavail able July Renee RETIREMENT PLAN COUNSELOR.PROTOTYPE CARPENTER Unavailable [phone] Stephanie Carter RN Unavailable [phone] Sofia Lay Unavailable Unavailable Opal Barbosa RN Unavailable Unavailable Source Comments In the event this information is protected by the Federal Confidentiality of Alcohol and Drug AbusePatient Records regulations: The Federal rules restrict any use of the information to criminally investigate or prosecute any alcohol or drug abuse patient.[facility] Encounter Details Date Type Department Care Team (Late st Contact Info) Description 08/28/2024 Get Medical Advice Hematology/Oncology [address] [place] [address] [place] [address] [place] [id number] Atra Social History Tobacco Use Types Packs/Day Years [...] is lower risk 9 03/21/2023 Data from: https://www.neighborhoodatlas.[facility] Last address used for calculation [...] Description 04/03/2025 2:00 PM EDT Results Only [facility] [address] [address] [place] [address] labs - no longer has port 04/03/2025 3:00 PM EDT Visit (SP) Office Hematology/Oncology [address] [place] [id number] [place] [address] [place] [address] C92.41 07/08/2025 10:15 AM EST Appointment Radiology Pet CT [address] [place] [address] CT CHEST WO IV 07/14/2025 11:00 AM EST Visit (SP) Office Hematology/Oncology [address] [place] [address] [place] [address] Ignacio Anderson MD [address] [place] [address] 6 [address] FOLLOW UP AFTER CT SCAN documented as of this encounter Visit Diagnoses Not on filedocumented in this encounter Care Teams Service Planner Relationship Specialty Start Date End Date Mike Moya Sr., DO PCP - General Family Medicine 01/09/15 Bernard Garrett MD Physician Hematology/Oncology 05/16/24 02/07/25 July Renee, RETIREMENT PLAN COUNSELOR.PROTOTYPE CARPENTER [address] [place] [address] [place] [address] Nurse Practitioner Hematology/Oncology 05/16/24 Stephanie Carter, [facility] [address] [place] [address] [place] [address] Specialty Culinary Arts Teacher Hematology/Oncology 05/16/24 Sofia Lay LSW Varnishing Unit Tool Setter 06/20/24 Opal Barbosa, RN Specialty Culinary Arts Teacher Hematology/Oncology 11/10/24 documented as of this encounter
--- OUTSIDE RECORDS SUMMARY | 2025-03-13 08:27 | XMS_ITS | Encounter Summary ---
Author Organization [facility] Address [address] [place] [address] Care Team Providers Care Bankruptcy Judge Name Role Phone Mike Moya DO Primary Care Provider [phone] Bernard Garrett MD Unavailable [phone] Madelin Bean MD Unavailable Floresita Mena MD Unavailable [phone] Reason for Visit * Reason Onset Date Comments Medication Management 05/10/2024 Prescripti on clarification request Encounter Details Date Type Department Care Team (Late st Contact Info) Description 05/10/2024 Telephone [facility] [address] [place] [address] Rica Funez, medical physicist Management (Prescription clarification request) Social History Tobacco Use Types Packs/Day Years Used Date Smoking Tobacco: Former Cigarettes Smokeless Tobacco: Never Alcohol Use Standard Drinks/Week Comments Not Currently 0 (1 standard drink = 0.6 oz pur e alcohol) [facility] Utilities Answer Date Recorded In the past 12 months has [employer], gas, oil, or water company threatened to shut off services in your [...] any time in the past 12 m [facility], were you homeless or living in a usp (including now)? No 04/02/2024 Comments Unknown Sex and Gender Information Value Date Recorded Sex Assigned at Not on file Legal Sex Female 10:58 PM EDT Gender Identity Not on file Sexual Orientation Not on file documented as of this encounter Functional Status * Are you deaf or do you have serious difficulty hearing? Answer Date of Assessment Author Yes 03/26/2024 1:42 AM Lillian Dangelo RN * Are you blind or do you have serious difficulty seeing, even when wearing glasses? Answer Date of Assessment Author No 03/26/2024 1:42 AM Lillian Dangelo RN * Do you have serious difficulty walking or climbing stairs (5 years or older)? Answer Date of Assessment Author No 03/26/2024 1:42 AM Lillian Dangelo RN * Do you have difficulty dressing or bathing (5 yrs or older)? Answer Date of Assessment Author No 03/26/2024 1:42 AM Lillian Dangelo RN * Because of a physical, mental, or emotional condition, do you have difficulty doing errands alone such as visiting a doctor's office or shopping (5 yrs or older)? Answer Date of Assessment Author No 03/26/2024 1:42 AM EDT Lillian Carrasco RN documented as of this encounter Mental Status * Because of a physical, mental, or emotional condition, do you have serious difficulty concentrating, remembering, or making decisions (5 yrs or older)? Answer Entry Date Author No 03/26/2024 1:42 AM EDT Lillian Carrasco RN documented in this encounter Miscellaneous Notes * Telephone Encounter - Lu Santamaria RN - 05/10/2024 11:39 AM EDT Received message from Dr. Mena: I'm not sure exactly how Dr. Guevara prescribed it but given that she will take over her care and patient will not return to us, would go with the prescription instructions on Dr. Guevara's Rx. Of note, Dr. Guevara is at a different practice completely ([facility]) so pharmacy should probably reach out to their office for additional clarifications, as she will be the prescribing provider for the rest of treatment. Called [facility] and they stated they will reach out to Ddr. Guevara's office forclarification. * Telephone Encounter - Rica Fnuez RN - 05/10/2024 10:56 AM EDT Images from the original note were not included. documented in this encounter Plan of Treatment Not on file documented as of this encounter Visit Diagnoses Not on filedocumented in this encounter Care Teams Bankruptcy Judge Relationship Specialty Start Date End Date Mike Moya DO [address] [place] [id number] PCP - General Family Medicine 03/24/24 Bernard Garrett MD [address] [place] [address] [place] [address] Hematology and Oncology 03/26/24 Madelin Bean MD [address] [place] [id number] Infectious Disease Infectious Disease 04/18/24 Floresita Mena MD [address] [place], [place] [address] [place] [address] Hematology 04/25/24 documented as of this encounter
--- NOTE | 2025-03-13 08:29 | ECG_ITS ---
[facility] Test Date: 2025-03-13 Pat Name: JANIE GARCIA Department: Room: - Gender: Female Nail Making Machine Tender: : 1965 Requested By: [id number] Order Number: [id number] [place] MD: PAL HERNANDEZ M.D. Measurements Intervals [place] Rate: 64 P: 60 WY: 152 QRS: 38 QRSD: 90 T: 48 QT: 424 QTc: 434 Interpretive Statements 1100 Sinus rhythm [address] depression 9150 abnormal ECG Compared to ECG 03/24/2024 16:33:21 Ventricular premature complex(es) no longer present ST (T wave) deviation still present Electronically Signed On 03-15-2025 7:28:36 EDT by PAL HERNANDEZ M.D.
--- NOTE | 2025-03-13 08:29 | XR_ITS ---
The [address] [address] Patient Name: JANIE GARCIA MRN: [id number] date: 1965 Sex: F Assigned Patient Location: ER Current Patient Location: ER Accession/Order Number: [id number] Exam Date: 03/13/2025 09:31 Report Date: 03/13/2025 09:34 At the request of: THOM ORTIZ MD Procedure: XR chest 1V PORTABLE AP ERECT CHEST 0905 hours CLINICAL HISTORY: CP COMPARISON: 03/24/2024 There is continued volume loss on the right with elevation of the hemidiaphragm. The cardiac, hilar and mediastinal silhouettes are similar. There is no vascular congestion. No developing consolidation is seen. There is no effusion or pneumothorax. The bony structures are osteopenic. There is thoracolumbar levoscoliotic curvature. A cervical fusion plate is noted. XR/XR chest 1V IMPRESSION: NO ACUTE FINDINGS Impression dictated by: Maria D Thrasher M.D. 03/13/2025 9:34 AM Dictation Location: [email or web address] Electronically authenticated by: [id number] Y Date: 03/13/2025 09:34
--- NOTE | 2025-03-13 08:30 | ED.GENADUL1 ---
HPI HPI - General Adult General Chief complaint: Chest Pain Stated complaint: VOMITING CHILLS LUMP IN CHEST Time Seen by Provider: 03/13/25 08:18 Source: patient Mode of arrival: walk-in Limitations: no limitations History of Present Illness HPI narrative: 59-year-old female presents to the emergency department for chest pain. She initially described it as a lump in her chest but it is not a physical lump but she feels like something is there. When questioned about it further she describes it as a pressure. Yesterday she had a headache and was fatigued and both of her wrists were hurting. She has a history of leukemia but is in remission and her last treatment for it was in December of this year. She does not have a history of heart disease but her father at age 69 of a heart attack. She is currently wearing a heart monitor because her oncologist ordered it because she was having some palpitations Related Data Home Medications ?Medication ?Instructions ?Recorded ?Confirmed acyclovir 400 mg tablet 400 mg PO BID 03/13/25 03/13/25 gabapentin 300 mg capsule 600 mg PO BID 03/13/25 03/13/25 lisinopril 10 mg tablet 10 mg PO DAILY 03/13/25 03/13/25 tretinoin 0.01 % topical gel 1 applic topical .at bedtime 03/13/25 03/13/25 Allergies Allergy/AdvReac Type Severity Reaction Status Date / Time No Known Drug Allergies Allergy Verified 03/13/25 08:19 Review of Systems ROS Narrative A ten point review of systems is negative except as noted above. PFSH PFSH Social History Little interest or pleasure in doing things: not at all Feeling down, depressed, or hopeless: not at all Exam Narrative Exam Narrative: Nurses note and vital signs reviewed and patient is not hypoxic. General: The patient appears well and in no apparent distress. Patient is resting comfortably on cart. Skin: Warm, dry, no pallor noted. There is no rash noted. Head: Normocephalic, atraumatic Eye: Normal conjunctiva, no drainage Ears, Nose, Mouth, and Throat: oral mucosa is moist. Nares patent. Cardiovascular: Regular Rate and Rhythm Respiratory: Patient is in no distress, no accessory muscle use, lungs are clear to auscultation, no wheezing, rales or rhonchi Back: non-tender GI: Soft and nontender Musculoskeletal: The patient has no evidence of calf tenderness, no pitting edema, symmetrical pulses noted bilaterally Neurological: A&O normal speech Psychiatric: Cooperative Constitutional Vital Signs, click to edit/add: Last Vital Signs Temp 97.7 F 03/13/25 08:19 Pulse 83 03/13/25 09:50 Resp 17 03/13/25 09:50 BP 142/79 H 03/13/25 09:30 Pulse Ox 97 03/13/25 09:50 O2 Del Method Room Air 03/13/25 08:19 Course Vital Signs Vital signs: Vital Signs Temperature 97.7 F 03/13/25 08:19 Pulse Rate 63 03/13/25 08:19 Respiratory Rate 18 03/13/25 08:19 Blood Pressure 165/85 H 03/13/25 08:19 Pulse Oximetry 99 03/13/25 08:19 Oxygen Delivery Method Room Air 03/13/25 08:19 Temperature 97.7 F 03/13/25 08:19 Pulse Rate 83 03/13/25 09:50 Respiratory Rate 17 03/13/25 09:50 Blood Pressure 142/79 H 03/13/25 09:30 Pulse Oximetry 97 03/13/25 09:50 Oxygen Delivery Method Room Air 03/13/25 08:19 Medical Decision Making MDM Narrative Medical decision making narrative: EKG shows ST segment depression in leads V2, V3, V4, V5, and lead II. This is however unchanged from an EKG dated March 24, 2024. Her troponin is elevated at 227. She was given nitroglycerin with near complete resolution of her symptoms. She was also given 2 aspirin because she had taken 2 at home. She is hemodynamically stable for transfer and is agreeable for transfer. She will be transferred to [facility] and the findings were discussed thoroughly with the patient. Differential Diagnosis Differential Diagnosis: STEMI, NSTEMI, GERD, chest pain Lab Data Lab results reviewed: Yes I reviewed the patient's lab results Labs: Lab Results 03/13/25 Range/Units 09:00 WBC 9.5 (4.0-11.0) 10^3/uL RBC 4.65 (4.20-5.40) 10^6/uL Hgb 14.3 (12.0-16.0) g/dL Hct 43.1 (36.0-48.0) % MCV 92.7 (81.0-99.0) fL MCH 30.8 (26.7-34.0) pg MCHC 33.2 (29.9-35.2) g/dL RDW 11.8 (11.0-15.0) % Plt Count 168 (150-450) 10^3/uL MPV 9.8 (9.5-13.5) fL Neut % (Auto) 78.4 H (43.0-75.0) % Lymph % (Auto) 14.3 L (20.5-60.0) % [place] % (Auto) 4.5 (1.7-12.0) % Eos % (Auto) 2.4 (0.9-7.0) % Baso % (Auto) 0.2 (0.2-2.0) % Neut # (Auto) 7.5 H (1.4-6.5) 10^3/uL Lymph # (Auto) 1.4 (1.2-3.8) 10^3/uL [place] # (Auto) 0.4 (0.3-0.8) 10^3/uL Eos # (Auto) 0.2 (0.0-0.7) 10^3/uL Baso # (Auto) 0.0 (0.0-0.1) 10^3/uL Abs Immat Gran (auto) 0.02 (0.00-0.03) 10^3/uL Imm/Tot Granulo (auto) 0.2 (0.0-0.5) % D-Dimer 0.40 (<=0.59) mg/L FEU Sodium 145 (136-145) mmol/L Potassium 4.1 (3.5-5.1) mmol/L Chloride 105 (98-107) mmol/L Carbon Dioxide 28.3 (21.0-32.0) mmol/L Anion Gap 15.8 BUN 20.0 H (7.0-18.0) mg/dL Creatinine 0.62 (0.55-1.02) mg/dL Est GFR ( Amer) >60 (>=60 mL/min/1.73m^2) Est GFR (Non-Af Amer) >60 (>=60 mL/min/1.73m^2) BUN/Creatinine Ratio 32.3 Glucose 146 H (74-106) mg/dL Calcium 9.4 (8.5-10.1) mg/dL Troponin I High Sens 227.0 H* (4.0-51.3) pg/mL Imaging Data Chest x-ray: Radiologist's impression: ITS Impressions Chest X-Ray 03/13/25 08:29 IMPRESSION: NO ACUTE FINDINGS Impression dictated by: Maria D Thrasher M.D. 03/13/2025 9:34 AM Dictation Location: [facility] Electronically authenticated by: [id number] Y Date: 03/13/2025 09:34 ECG Data Attestation: I personally reviewed and interpreted this ECG as follows: (EKG on my interpretation shows some ST depression in the precordial leads and lead II but this is unchanged from March 24, 2024 EKG) Critical Care Time Critical Care Time Critical Care Time: Yes Total Critical Care Time: 35 Attestation: Due to the high probability of sudden and clinically significant deterioration in the patient's condition he/she required the highest level of my preparedness to intervene urgently I provided critical care time including documentation time, medication orders and management, reevaluation, vital sign assessment, ordering and reviewing of lab tests, ordering and reviewing of x-ray studies, and admission orders. Aggregate critical care time is 35 minutes including only time during which I was engaged in work directly related to his/her care and did not include time spent treating other patients simultaneously. Discharge Plan Discharge Chief Complaint: Chest Pain Clinical Impression: Non-ST elevation [place] (NSTEMI) Patient Disposition: [facility] Time of Disposition Decision: 10:03 Discharge Location: [facility] Condition: Fair Mode of Transportation: EMS
[2025-03-13] MEDS: NITROGLYCERIN 0.4 MG BOTTLE SL (08:36)
[2025-03-13] MEDS: ASPIRIN 81 MG TAB.CHEW 324 MG PO (08:36)
[2025-03-13 09:15] LABS: Hematocrit 43.1 % (36.0-48.0); Hemoglobin 14.3 g/dL (12.0-16.0); Immature Granulocytes Abs Auto 0.02 10^3/uL (0.00-0.03); Immature Granulocytes Pct Auto 0.2 % (0.0-0.5); Lymphocytes Absolute Auto 1.4 10^3/uL (1.2-3.8); Mean Corpuscular HGB Conc 33.2 g/dL (29.9-35.2); Mean Corpuscular Hemoglobin 30.8 pg (26.7-34.0); Mean Corpuscular Volume 92.7 fL (81.0-99.0); Platelet Count 168 10^3/uL (150-450); Red Blood Count 4.65 10^6/uL (4.20-5.40); White Blood Count 9.5 10^3/uL (4.0-11.0)
[2025-03-13 09:27] LABS: Anion Gap 15.8; Blood Urea Nitrogen 20.0 mg/dL (7.0-18.0); Calcium 9.4 mg/dL (8.5-10.1); Carbon Dioxide 28.3 mmol/L (21.0-32.0); Chloride 105 mmol/L (98-107); Estimated GFR (African America >60 (>=60 mL/min/1.73m^2); Estimated GFR (Non-African Ame >60 (>=60 mL/min/1.73m^2); Glucose 146 mg/dL (74-106); Potassium 4.1 mmol/L (3.5-5.1); Sodium 145 mmol/L (136-145)
[2025-03-13] MEDS: HEPARIN SODIUM (PORCINE) 5,000 UNIT/ML VIAL 4000 UNIT IV (11:27)
[2025-03-13] MEDS: HEPARIN SODIUM,PORCINE/D5W 25,000 UNIT/500 ML IV.SOLN 16 UNIT IV (11:28)
[2025-03-13 12:22] LABS: INR 0.95; Partial Thromboplastin Time 24.8 sec (22.3-36.2); Prothrombin Time 10.1 sec (9.0-11.6)
== END 2025-03-13 14:25 | disposition short-term general hospital (02) ==
PROVIDERS: Emergency Provider Emergency Medicine; PCP Family Medicine
DX: I21.4 Non-ST elevation (NSTEMI) myocardial infarction (principal); I24.9 Acute ischemic heart disease, unspecified; R07.89 Other chest pain; C95.91 Leukemia, unspecified, in remission
CPT/HCPCS: 36415; 71045; 80048; 84484; 85025; 85378; 85610; 85730; 93005; 96365; 96366; 96376; 99285; J1644